=== PATIENT | female | born 2005 | race Caucasian/White ===

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

== ENCOUNTER 2023-05-02 06:27 | Emergency (ER) | payer MEDICAID, SELFPAY ==
[2023-05-02 06:32] VITALS: BP 126/67; PULSE 99; RESP 16; TEMP 36.4; O2SAT 98
--- NOTE | 2023-05-02 06:34 | W.ED.GENAD ---
Discharge Plan Disposition Patient Disposition: Home Condition: Good Discharge Details Chief Complaint: Sorethroat Clinical Impression: Acute herpangina Primary Care Provider: Unknown,Unknown ED Provider: Adriano Holcomb Home Meds and New Rx's Prescriptions: No Action Nexplanon 68 mg implant 1 implant SBD ONCE albuterol sulfate [ProAir HFA] 90 mcg/actuation HFA aerosol inhaler 2 puff Inhalation Q4H PRN Qty: 1 12RF Patient Comments: Pt unsure when she last used this albuterol sulfate 2.5 MG/3 ML solution for nebulization 2.5 mg Inhalation Q4H PRN Qty: 1 Patient Comments: Pt unsure when she last took this med Rx Instructions: USE PRN COUGH OR WHEEZE escitalopram oxalate 5 mg tablet 5 mg PO DAILY MDD 15mg Qty: 30 3RF Rx Instructions: Take with 10mg for 15mg total escitalopram oxalate 10 mg tablet 10 mg PO DAILY MDD 15mg Qty: 30 2RF Discharge Instructions Instructions: Hand, Foot, and Mouth Disease (ED) Additional Instructions: At this time your symptoms are consistent with herpangina. This is similar to luqy-eewb-yir-mouth virus infection. Please take 800 mg of Motrin every 6 hours and 1000 mg of Tylenol every 6 hours. These are the maximum doses. Please use the HurriCaine spray only as absolutely needed for pain control. Drink plenty fluids and stay well-hydrated. If you notice any worsening of your symptoms, or any new symptoms such as vomiting, diarrhea, fever, chills, shortness of breath, chest pain, numbness, weakness, or fainting , please return immediately to the emergency department for reevaluation. Please follow up with your primary care provider as soon as possible for reassessment and reevaluation. As always, it was a pleasure participating in your medical care today. HPI General Date/Time Provider Initiated Documentation: 05/02/23 06:28. HPI Narrative: 17-year-old female with a past medical history of tonsillectomy, appendectomy, sleep apnea, asthma, presents today for evaluation of sore throat. Symptoms have been present for the last 7 to 10 days. She admits to mild cough as well. She has been taking DayQuil and NyQuil without any significant improvement. Over the last 24 to 48 hours she has noticed some white spots on the posterior aspect of her throat. She denies any ear pain. She denies any vomiting or diarrhea. No other complaints at this time. No other modifying factors. Related Data Home Medications Medication Instructions Recorded Confirmed albuterol sulfate 2.5 mg/3 mL 2.5 mg inhalation Q4H PRN ##1 05/12/16 05/02/23 (0.083 %) solution for nebulization etonogestrel 68 mg subdermal 1 implant subdermal ONCE 03/14/18 05/02/23 implant (Nexplanon) albuterol sulfate 90 mcg/actuation 2 puff inhalation Q4H PRN ##1 05/08/18 05/02/23 aerosol inhaler (ProAir HFA) escitalopram oxalate 10 mg tablet 10 mg PO DAILY #30 tabs 03/17/23 05/02/23 escitalopram oxalate 5 mg tablet 5 mg PO DAILY #30 tabs 03/17/23 05/02/23 Previous Rx's Medication Instructions Recorded albuterol sulfate 90 mcg/actuation 2 puff inhalation Q4H PRN ##1 05/08/18 aerosol inhaler (ProAir HFA) escitalopram oxalate 10 mg tablet 10 mg PO DAILY #30 tabs 03/17/23 escitalopram oxalate 5 mg tablet 5 mg PO DAILY #30 tabs 03/17/23 Allergies Allergy/AdvReac Type Severity Reaction Status Date / Time Penicillins Allergy Mild RASH Verified 05/02/23 06:36 ethinyl estradiol AdvReac Nausea, Verified 05/02/23 06:36 [From Xulane] Headache, abdominal pain norelgestromin [From Xulane] AdvReac Nausea, Verified 05/02/23 06:36 Headache, abdominal pain General KAM: 3 Review of Systems All systems reviewed & are unremarkable except as noted in HPI and below Exam Narrative Exam Narrative: 1.Const: Well-nourished, Well-developed, appearing stated age 2.Eyes: PERRL, no conjunctival injection, and symmetrical lids. 3.ENT: Atraumatic external nose and ears. Moist MM. Neck: Symmetric, trachea midline, No thyromegaly. Tonsils are surgically absent. There is erythema on the uvula, with a few white exudates also noted. No large ulcers. No ulcers of the hard palate. No lesions on the hard palate. No lesions throughout the rest of the mouth. 4.CVS: +S1/S2, No murmurs or gallops. Peripheral pulses 2+ and equal in all extremities. Brisk capillary refill in all extremities. 5.RESP: Unlabored respiratory effort. Clear to auscultation bilaterally. No wheezes rales or rhonchi 6.GI: Soft, Nontender/Nondistended, No hepatosplenomegaly. No guarding or rebound. 7.MSK: Normocephalic/Atraumatic, Extremities w/o deformity or ttp No cyanosis or clubbing, Normal movement of all extremities 8.Skin: Warm, Dry. No rashes or lesions. 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 Sensation grossly intact, no focal neurologic deficits. 10.Psych: (AAO) x3. Appropriate mood and affect Medical Decision Making 17-year-old female with a past medical history of tonsillectomy, appendectomy, sleep apnea, asthma, presents today for evaluation of sore throat. Symptoms have been present for the last 7 to 10 days. She admits to mild cough as well. She has been taking DayQuil and NyQuil without any significant improvement. Over the last 24 to 48 hours she has noticed some white spots on the posterior aspect of her throat. She denies any ear pain. She denies any vomiting or diarrhea. No other complaints at this time. No other modifying factors. Physical exam demonstrates well-appearing female, surgically absent tonsils. Small white exudates noted on the uvula. Uvula is mildly inflamed and erythematous as well. But not overly enlarged. Differential includes a component of strep pharyngitis, herpangina, less likely ogyj-babz-mft-mouth. Symptoms appear less likely for herpes. Will test for strep, flu COVID and RSV, monitor closely and reassess. Strep test is negative. Symptoms appear most clinically consistent for herpangina. Will recommend NSAID therapy at home, will give HurriCaine spray for breakthrough use needed. Recommend continued hydration. Discussed red flags for which to return. Will give Toradol prior to discharge. I have extensively reviewed the treatment plan and discharge instructions with the patient. I have addressed all patient concerns at this time. The patient was made aware of what symptoms to monitor for that would warrant a return to the emergency department. Discussed the plan with the patient, they demonstrate verbal understanding and agreement with our assessment and plan at this time. The documentation in this chart was dictated using [employer] dictation software. Please excuse any dictation errors. 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 BMI (body mass index), pediatric, greater than 99% for age (Acute 05/26/17) Acanthosis nigricans (Acute 02/16/16) Medical History 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) Tonsillar hypertrophy (06/02/14) Lyme disease (09/28/12) Obesity Constipation RSV (acute bronchiolitis due to respiratory syncytial virus) Epigastric pain admit [facility] 06/30 Environmental allergies Dyspepsia Depression Myopia Surgical History Tonsillectomy and adenoidectomy (02/26/15) with left nose cauterized Appendectomy at age 15 months for ruptured appendix Family History Mother Anxiety and depression Father Chronic paranoid schizophrenia Maternal Cousin Chronic paranoid schizophrenia Hyperlipidemia Mat started at age 14 yrs Sibling Pediatric hearing loss Mental disorder Grandparent Substance abuse Heart disease Hyperlipidemia Mental disorder Neoplasm Sister Menorrhagia with menorragia started on hormone treatment after 1 year of periods Grandmother Menorrhagia Social History Smoking/Tobacco Use Status: Never Smoking risk assessment performed?: Yes Alcohol Intake: current Alcohol Intake frequency: holidays/special occasions only Drug use: Occasionally Substance use type: marijuana Communication Needs: Corrective Lenses current occupation: works at [employer] Pets and animals: Yes (2 dogs and a cat) Pets and animals: cat(s) and dog(s) Do you feel safe at home: Yes Do you feel safe in your relationship?: Yes Female Reproductive History Menstrual Age of Menarche: 11 Duration of menses: 3-5 days control method: implanted (Nexplanon inserted by [place] NP [id number] EXP=02/2020) History History 0 Para Hx # Term Pregnancies Multiple births Hx # Pregnancies Ectopic pregnancies AB induced Hx Number of Living Children AB spontaneous
[2023-05-02] MEDS: Ketorolac 30 MG/ML VIAL IM (07:21)
[2023-05-02] MEDS: Benzocaine 20% 60 ML CAN TP (07:22)
[2023-05-02 07:26] LABS: COVID-19 PCR Negative (Negative); Influenza A PCR Negative (Negative); Influenza B PCR Negative (Negative); RSV PCR Negative (Negative)
[2023-05-02 07:34] LABS: Source Nasopharynx
== END 2023-05-02 07:23 | disposition home or self-care (01) ==
PROVIDERS: Emergency Provider Student in an Organized Health Care Education/Training Program; PCP Family Medicine
DX: B08.5 Enteroviral vesicular pharyngitis (principal); Z11.52 Encounter for screening for COVID-19
CPT/HCPCS: 87637; 87880; 96372; 99283; 87081; J1885

== ENCOUNTER 2023-05-09 05:27 | Outpatient (CLI) | payer MEDICAID, SELFPAY ==
--- NOTE | 2023-05-09 15:11 | W.NUTRFU ---
Date of service: 05/09/23 Time of Service: 14:00 Nutrition Note NOTE: Felipa is a 17yo patient of [facility] referred for dietary guidance for wt mgt. She is also being referred to sleep medicine as reassess her CPAP situation as MONSE probably contributing to her weight struggles. Om 04/24/24 pt was weighed at 142.88kg, which results in a BMI of 60 at 60.75. Medications include escitalopram which can have side effectes of increased appetite and wt gain. Est. Energy Needs: 2777kcals (REEx1.3AF) - Suggested to Felipa that 2200 coiuld be considered goal for wt mgt. Protein: 110grams (20%of recommended kcals). Pt has no known food allergies and doesnf't consider herself to be too picky. Current takes no nutrition supplements. 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 In her usual day she skips breakfast or might have some gum or food from the register area. Lunch might be canned chili or prepared sandwich or meal from frozen isle. Dinner is at home with her family. States she snacks less at work, more at home. Drinks lots of water at home, at work might have some soda or monster drink. We looked at low hanging fruit to tackle some habits that might lead to the most immediate and significant change for her. We reviewed added sugar and how to track and goal of <40grams per day. We discussed regular meals to help achieve nutrition goals for protein and fiber. We discuseed taking standard mult vitamin that contains iron and iodine, alng with 2,000IU vitamin D. Discussed the benefit of regular exercise and baseline of activity. Encouraged continued efforts to work with providers to address MONSE factor. We reviewed setting up some simple and consistent menus to cycle between often so she doesn't have to stress about menu planning. Pt took my card with contact info if she has any immediate questions or need for resources. We made a plan for a follow up phone call at the end of May to see how she is doing with consistent menu planning and keeping added sugars below our set limit. Time Spent in Nutritional Counseling and Treatment: 45 minutes
== END 2023-05-09 05:28 | disposition home or self-care (01) ==
LOC: DS 05:27
PROVIDERS: PCP Family Medicine; Visit Provider Dietitian, Registered
DX: E66.8 Other obesity (principal); Z68.44 Body mass index [BMI] 60.0-69.9, adult; Z71.3 Dietary counseling and surveillance
CPT/HCPCS: 00123; 97802

== ENCOUNTER 2024-03-18 10:46 | Emergency (ER) | payer MEDICAID, SELFPAY ==
[2024-03-18 10:59] VITALS: BP 137/91; PULSE 122; RESP 14; TEMP 37.9; O2SAT 94
[2024-03-18 11:05] VITALS: BP 137/91; PULSE 122; RESP 14; TEMP 37.9; O2SAT 94
--- NOTE | 2024-03-18 11:16 | W.ED.GENAD ---
Discharge Plan Disposition Patient Disposition: Home Discharge Details Clinical Impression: Acute left otitis media, Viral upper respiratory tract infection with cough Primary Care Provider: Alexander Velazquez ED Provider: Gurpreet Bernabe Home Meds and New Rx's Prescriptions: New azithromycin [Zithromax Z-Jack] 250 mg tablet See Rx Instructions .ROUTE .COMPLEX Qty: 6 0RF Rx Instructions: For 250 mg dose pack: take 500 mg today (day 1), then 250 mg for 4 days (days 2-5) cetirizine 10 mg tablet 10 mg PO DAILY PRNQty: 7 0RF benzonatate 100 mg capsule 100 mg PO BID PRNQty: 7 0RF naproxen 500 mg tablet 500 mg PO BID PRNQty: 7 0RF budesonide-formoterol 80-4.5 mcg/actuation HFA aerosol inhaler 2 puff inhalation Q12H Qty: 10.2 0RF Rx Instructions: 1-2 puffs once to twice daily for maintenance. Continued Nexplanon 68 mg implant 1 implant SBD ONCE albuterol sulfate [ProAir HFA] 90 mcg/actuation HFA aerosol inhaler 2 puff Inhalation Q4H PRN Qty: 1 12RF Patient Comments: Pt unsure when she last used this albuterol sulfate 2.5 MG/3 ML solution for nebulization 2.5 mg Inhalation Q4H PRN Qty: 1 Patient Comments: Pt unsure when she last took this med Rx Instructions: USE PRN COUGH OR WHEEZE escitalopram oxalate 5 mg tablet 5 mg PO DAILY MDD 15mg Qty: 30 3RF Rx Instructions: Take with 10mg for 15mg total escitalopram oxalate 10 mg tablet 10 mg PO DAILY MDD 15mg Qty: 30 2RF Discharge Instructions Instructions: Ear Infections in Adults (DC) Additional Instructions: You are seen in the emergency department for your cough and fever. You will receive a call if your COVID swab is positive. Please return to the emergency department as we discussed if you cannot eat or drink or have difficulty breathing. Otherwise follow-up as needed with your primary care provider. Antibiotics and some supportive medications for your cough have been sent to your pharmacy. Please take as directed. For your pain please take medications as follows: 1. Take acetaminophen (Tylenol), 1,000 mg (two 500 mg tabs) every 6 hours [2. Take ibuprofen (Advil), 400 mg every 6 hours.] Stand Alone Forms: Work Release Discharge Data Discharge Date/Time-TO BE ENTERED AT DEPARTURE: 03/18/24 11:54 HPI General Date/Time Provider Initiated Documentation: 03/18/24 10:54. HPI Narrative: MDM This is an overall well-appearing normothermic but tachycardic 18-year-old female with cough sore throat most consistent with viral URI for which she will receive empiric trial of discharge with expectant management with azithromycin given left acute otitis media and penicillin allergy. No pain out of proportion to suggest necrotizing soft tissue infection. No significant posterior oropharynx erythema to suggest strep pharyngitis I did not swab for strep. Patient does have a headache but she has not been vomiting making my suspicion low for subdural empyema. Good range of motion in neck so doubt retropharyngeal abscess. Uvula midline so doubt peritonsillar abscess. Handling secretions making my suspicion low for epiglottitis. Nontoxic and vaccinated not consistent with bacterial tracheitis. No abnormal lung sounds to suggest pneumonia. As result we will defer chest x-ray. Patient appears hydrated send indication for IV fluids. We discussed that she should return to the emergency department if she develops worsening symptoms could not eat or drink as result of nausea or vomiting or could not take her antibiotic. She had no mastoid tenderness to suggest mastoiditis. No nuchal rigidity to suggest meningitis. Patient was persistently tachycardic but had a borderline fever. Given volumes in the emergency department patient was discharged tachycardic following acetaminophen and ibuprofen which were given. Supportive viral URI medications were sent to the patient's pharmacy. 4. Negative viral PCR HPI This is a 18-year-old female with a history of reactive airway disease arrived to the emergency department via private vehicle in the setting of headache cough sore throat. She has also had left ear pain. She says her cough is productive of clear phlegm. She was febrile at home up to 101.4 ?F as taken tympanically. She received her immunizations growing up. She takes anxiolysis medications. She has not been vomiting nor nauseous. She denies chest pain shortness of breath. She reports that her symptoms began 2 days ago. No abdominal pain. Exam General: Well-appearing in no acute distress speaking in complete sentences. Head: Normocephalic, atraumatic. Eye: Extraocular eye movements intact. No conjunctival injection. No scleral icterus. Ear, nose, mouth, throat: Right TM clear. Left TM erythematous bulging. No mastoid tenderness. No left ear proptosis. Normal voice, handling secretions normally. No significant posterior oropharynx erythema. Uvula midline. Neck: Trachea midline. Good range of motion in neck. Cardiovascular: Well-perfused distal extremities. Rapid regular rate. Respiratory: Nonlabored respiration. Clear lungs bilaterally. Gastrointestinal: Nondistended abdomen. Musculoskeletal: No edema. Moving all 4 extremities spontaneously. Skin: Normal for age and race, grossly normal temperature and turgor. No acute rash. Neurologic: Alert and appropriate, no apparent acute deficits. Psychiatric: Mood and manner are appropriate. Grooming and personal hygiene are appropriate. Related Data Home Medications ?Medication ?Instructions ?Recorded ?Confirmed albuterol sulfate 2.5 mg/3 mL 2.5 mg inhalation Q4H PRN ##1 05/12/16 03/18/24 (0.083 %) solution for nebulization etonogestrel 68 mg subdermal 1 implant subdermal ONCE 03/14/18 03/18/24 implant (Nexplanon) albuterol sulfate 90 mcg/actuation 2 puff inhalation Q4H PRN ##1 05/08/18 03/18/24 aerosol inhaler (ProAir HFA) escitalopram oxalate 10 mg tablet 10 mg PO DAILY #30 tabs 03/17/23 03/18/24 escitalopram oxalate 5 mg tablet 5 mg PO DAILY #30 tabs 03/17/23 03/18/24 azithromycin 250 mg tablet See Rx Instructions PO .COMPLEX #6 03/18/24 (Zithromax Z-Jack) tabs benzonatate 100 mg capsule 100 mg PO BID PRN #7 caps 03/18/24 budesonide-formoterol HFA 80 2 puff inhalation Q12H #10.2 grams 03/18/24 mcg-4.5 mcg/actuation aerosol inhaler cetirizine 10 mg tablet 10 mg PO DAILY PRN #7 tabs 03/18/24 naproxen 500 mg tablet 500 mg PO BID PRN #7 tabs 03/18/24 Previous Rx's ?Medication ?Instructions ?Recorded albuterol sulfate 90 mcg/actuation 2 puff inhalation Q4H PRN ##1 05/08/18 aerosol inhaler (ProAir HFA) escitalopram oxalate 10 mg tablet 10 mg PO DAILY #30 tabs 03/17/23 escitalopram oxalate 5 mg tablet 5 mg PO DAILY #30 tabs 03/17/23 azithromycin 250 mg tablet See Rx Instructions PO .COMPLEX #6 03/18/24 (Zithromax Z-Jack) tabs benzonatate 100 mg capsule 100 mg PO BID PRN #7 caps 03/18/24 budesonide-formoterol HFA 80 2 puff inhalation Q12H #10.2 grams 03/18/24 mcg-4.5 mcg/actuation aerosol inhaler cetirizine 10 mg tablet 10 mg PO DAILY PRN #7 tabs 03/18/24 naproxen 500 mg tablet 500 mg PO BID PRN #7 tabs 03/18/24 Allergies Allergy/AdvReac Type Severity Reaction Status Date / Time Penicillins Allergy Mild RASH Verified 03/18/24 11:04 ethinyl estradiol (From AdvReac Nausea, Verified 03/18/24 11:04 Xulane) Headache, abdominal pain norelgestromin (From Xulane) AdvReac Nausea, Verified 03/18/24 11:04 Headache, abdominal pain General Stated Complaint: RespSymp KAM: 4 Course Vital Signs Vital signs: Vital Signs Temperature 37.9 C H 03/18/24 10:59 Pulse 122 H 03/18/24 10:59 Respiratory Rate 14 03/18/24 10:59 Blood Pressure 137/91 H 03/18/24 10:59 Pulse Oximetry 94 03/18/24 10:59 Temperature 37.9 C H 03/18/24 11:05 Temperature Source Oral 03/18/24 11:05 Pulse 122 H 03/18/24 11:05 Respiratory Rate 14 03/18/24 11:05 Blood Pressure 137/91 H 03/18/24 11:05 Blood Pressure Position Sitting 03/18/24 11:05 Pulse Oximetry 94 03/18/24 11:05 Oxygen Delivery Method Room Air 03/18/24 11:05 Oxygen Flow Rate 0 03/18/24 11:05 Pain Level 7 03/18/24 11:05 Medical Decision Making Quality:SDOH Health Related Social Needs: No Data to Display PFSH All Active Problems (Updated 03/18/24 @ 11:27 by Gurpreet Bernabe MD) Viral upper respiratory tract infection with cough (Acute) Acute left otitis media (Acute) Marijuana use (Acute) Elevated LDL cholesterol level (Acute) Obesity (Chronic) Pre-hypertension (Acute) Mild persistent asthma (Chronic) Menorrhagia with irregular cycle (Acute) nexplanon since 2018; did not want OCPs (hard time remembering pills), in past has decline work-up for PCOS Sleep apnea (Acute 05/28/12) Environmental allergies (Acute 06/02/14) 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 BMI (body mass index), pediatric, greater than 99% for age (Acute 05/26/17) Acanthosis nigricans (Acute 02/16/16) Medical History (Updated 03/18/24 @ 11:27 by Gurpreet Bernabe MD) Presence of subdermal contraceptive implant (02/27/24) 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) Tonsillar hypertrophy (06/02/14) Lyme disease (09/28/12) Obesity Constipation RSV (acute bronchiolitis due to respiratory syncytial virus) Epigastric pain admit [facility] 06/30 Environmental allergies Dyspepsia Depression Myopia Surgical History Tonsillectomy and adenoidectomy (02/26/15) with left nose cauterized Appendectomy at age 15 months for ruptured appendix Family History Mother Anxiety and depression Father Chronic paranoid schizophrenia Maternal Cousin Chronic paranoid schizophrenia Hyperlipidemia Mat started at age 14 yrs Sibling Pediatric hearing loss Mental disorder Grandparent Substance abuse Heart disease Hyperlipidemia Mental disorder Neoplasm Sister Menorrhagia with menorragia started on hormone treatment after 1 year of periods Grandmother Menorrhagia Social History Smoking/Tobacco Use Status: Never Smoking risk assessment performed?: Yes Alcohol Intake: current Alcohol Intake frequency: holidays/special occasions only Drug use: Daily Substance use type: marijuana Details: Pt states she smokes marijuana daily 03/18/24 Communication Needs: Corrective Lenses current occupation: works at [employer] Pets and animals: Yes (2 dogs and a cat) Pets and animals: cat(s) and dog(s) Do you feel safe at home: Yes Do you feel safe in your relationship?: Yes Female Reproductive History Menstrual Age of Menarche: 11 Duration of menses: 3-5 days control method: implanted History History 0 Para Hx # Term Pregnancies Multiple births Hx # Pregnancies Ectopic pregnancies AB induced Hx Number of Living Children AB spontaneous
--- OUTSIDE RECORDS SUMMARY | 2024-03-18 11:29 | XMS_ITS | Encounter Summary ---
Author Organization [facility]ly [facility] [place] [address] Care Team Providers Care Production Truck Driver Name Role Phone María Irizarry MD Primary Care Provider [phone] Encounter Details Date Type Department Care Team (Late st Contact Info) Description 12/17/2021 Telephone [facility]illofacial Surgery at [facility], [place] [id number] Sherri Salas Social History Tobacco Use Types Packs/Day Years Used Date Smoking Tobacco: Passive Smo ke Exposure - Never Smoker Smokeless Tobacco: Never Comments:mother smokes outsi de Sex and Gender Information Value Date Recorded Sex Assigned at Not on file Gender Identity Not on file Sexual Orientation Not on file documented as of this encounter Miscellaneous Notes * Telephone Encounter - Sherri Salas - 12/17/2021 2:42 PM EDT Cherri, Patient is scheduled to have surgery on 01/19/2022 and the packet has been mailed to the verified address on file. Follow up appointment is as follows: No follow up indicated in case Thank you!! documented in this encounter Plan of Treatment Not on file documented as of this encounter Visit Diagnoses Not on filedocumented in this encounter Care Teams Production Truck Driver Relationship Specialty Start Date End Date María [place] [address] PCP - General Pediatrics 12/17/21 documented as of this encounter
--- OUTSIDE RECORDS SUMMARY | 2024-03-18 11:29 | XMS_ITS | Encounter Summary ---
Author Organization [facility] Serafin jessie [place] [id number] Care Team Providers Care Mysql Database Developer Name Role Phone María Irizarry MD Primary Care Provider [phone]- [phone] Reason for Visit * Auth/Cert Specialty Diagnoses / Procedures Referred By Noreen farooq Referred To Contact Diagnoses Impacted teeth Procedures PRO IMPACT TOOTH REMOV COMP BONY PRO ANESTH, PROCEDURE ON MOUTH SURGICAL EXTRACTIONS, REMOVAL OF IMPACTED TOOTH, COMPLETELY BONY (WRVU 1.93) Fiugeroa Jones MD [facility] [address] [facility] Referral ID Status Reason Start Date Expiration Date Visits Re quested Visits Authorized [id number] 1 1 Encounter Details Date Type Department Care Team (Latest Contact Info) Description 01/19/2022 9:09 AM EST - 01/19/2022 1:04 PM [facility] Hospital [place] [address] Figueroa Jones MD [facility] [address] Dental impaction Discharge Disposition: Home Social History Tobacco Use Types Packs/Day Years Used Date Smoking Tobacco: Never Passive Smoke Exposure: Yes Smokeless Tobacco: Never Tobacco Cessation:Counseling Given: Not Answered Comments:mother smokes outside Alcohol Use Standard Drinks/Week Comments Not Currently 0 (1 standard drink = 0.6 oz pur e alcohol) Sex and Gender Information Value Date Recorded Sex Assigned at Not on file Gender Identity Not on file Sexual Orientation Not on file documented as of this encounter Last Filed Vital Signs Vital Sign Reading Time Taken Comments Blood Pressure 142/93 01/19/2022 12:45 PM EST Pulse 74 01/19/2022 11:42 AM EST Temperature 36.7 ??C (98.1 ??F) 01/19/2022 1:02 PM ES T Respiratory Rate 16 01/19/2022 11:4 2 AM EST Oxygen Saturation 97% 01/19/2022 12: 45 PM EST Inhaled Oxygen Concentration - - Weight 125.9 kg (277 lb 8 oz) 01/19/2022 9:38 AM EST Height 154.9 cm (5' 1) 01/19/2022 9:38 AM EST Body Mass Index 52.43 01/19/2022 9:38 AM EST Body Mass Index Percentile 99.99% 01/19/2022 9:3 8 AM EST Growth Chart: [facility] (Girls, 2- 20 Years) documented in this encounter Discharge Instructions * Patient Instructions* Figueroa Jones MD - 01/19/2022 10:46 AM EST On the Day of Surgery: DO NOT rinse your mouth, smoke, or use a straw when drinking. Any of these could cause you to bleed more. You should remain at home, rest, and avoid alcoholic beverages. Discomfort: Strategy for pain: Take prescribed motrin/advil/ibuprofen (these are called NSAID) every 6 hours for pain over the next 2 days on a regular time frame. In between the 6 hour time frame you can supplement it with Tylenol 650mg and/or one vicodin/percocet/oxycodone (which ever one was prescribed) to bridge your pain till the next NSAID dose. Time the pain medicine so you take it before you go to bed. Be mindful of not taking more then 1000mg within a 6 hour time frame (not to exceed 4000mg in a 24 hour period). It is not uncommon for you to have some discomfort following a surgical procedure. This discomfort may last for three days or more. Pain relievers such as ibuprofen or Tylenol (acetaminophen) may be taken - please follow the directions on the bottle. Other discomforts you may experience include: slight earache, sore throat, numbness or tingling in the lips or chin, aches in other teeth, and tightness of the jaw muscles. Bleeding: It is normal for the surgery site to bleed post-operatively. If bleeding continues, placegauze directly over the surgery site and bite down gently, but firmly, for 20 minutes. Repeat this process as needed. If bleeding is heavy, keep head elevated or sit upright, avoid exercise, hot liquids, smoking, and drinking from straws. If the bleeding does not stop with pressure, try a lukewarm,damp tea bag in place of the gauze for another 20 minutes. The tea bag will help to form blood clots and stop the bleeding. If bleeding continues, call your doctor. Swelling: To reduce immediate swelling after your procedure, apply an ice pack, with pressure, to the face over the area of the procedure. Ice should be applied for 15-20 minutes at a time, for the first 24 hours. After 24 hours, a moist warm compress may be helpful. Most swelling will occur qiarer18-10 hours following the procedure. Mouth Rinse: Vigorous mouth washing may cause bleeding to begin again if clots are not formed. DO NOT RINSE on the day of surgery. Begin rinsing one day after the procedure with peridex (if prescribed) very gently and in between peridex rinses you can also rinse with warm salt water (1/2 teaspoon per 8 oz. warm water). Continue rinsing 3-6 times a day for several days. This will keep surgical sites clean and will help with healing. Diet: It is best to eat light, soft foods, and drink plenty of liquids following a surgical procedure. Foods like, yogurt, pasta, eggs, soups, and ice cream are good choices. Avoid hot liquids for 24hours after surgery Avoid foods that are difficult to chew. Once chewing becomes easier, you may return to your normal diet. In General: If stitches are used, they will dissolve or unravel in about three days to one week. Avoid strenuous exercise, such as jogging and contact sports for at least one week following surgery. Swelling is usually most extensive 24- 48 hours following surgery, and usually takes 4-5 days to subside. Sockets can take 4-6 weeks to heal, and often heal from the inside out. It may take 10-14 days before you feel like your normal self again. Infection: Can occur at any time, but it is evident more often 4-7 days after a procedure. Please contact us at the numbers below if you have one or more of the following: Temperature elevation greater than 100.5 Worsening swelling after the initial 48 hour period Severe and worsening pain Pus or other foul drainage from the surgery site Foul smell or taste coming from the surgery site Generalized body chills or fever During business hours 8am-5pm M-F please call our office at [phone] otherwise call the main number [phone] and ask to connect with Dr. Jones and if no response within 30 minutes please call and ask to speak with the ENT resident energy economist. documented in this encounter Medications at Time of Discharge Medication Sig Dispensed Refills Start Date End Date HYDROcodone-acetaminop hen ([place]) 5-325 mg Tablet Take 1-2 tablets by mouth every 6 hours as needed. 15 tablet 01/19/2022 ibuprofen (Advil) 600 mg Tablet Take 1 tablet by mouth every 6 hours as needed for Pain. 20 tablet 01/19/2022 escitalopram (Lexapro) 10 mg Tablet Take 10 mg by mouth daily. 07/21/2021 etonogestreL (Nexplanon) 68 mg Implant by Subdermal route Continuous (Device). FLUoxetine (PROZAC) 20 mg Tablet Daily 10/13/2015 Selenium Sulfide 2.25 % Shampoo twice a week 10/13/2015 polyethylene glycol (MIRALAX) 17 gram Powder in Packet Take 17 g by mouth daily. senna (EX-LAX) 15 mg Tablet, Chewable Take 1 tablet by mouth daily (after breakfast). 30 tablet 3 01/14/2016 montelukast (SINGULAIR) 5 mg chewable tablet Take 5 mg by mouth nightly. chlorhexidine (Peridex) 0.12 % Mouthwash Take 15 mLs by mouth 2 times daily for 7 days. 210 mL 01/19/2022 01/26/2022 documented as of this encounter H&P Notes * Figueroa Jones MD - 01/19/2022 10:01 AM EST The patient's history and physical exam have been reviewed and completed. There has been no interval change. CV: regular rate and rhythm without peripheral edema Lungs:non labored breathing Oral exam: No proper room for eruption and minimal attached tissue distal second molars. No change in exam Plan is to extract 1, 16, 17 Dparq/consent obtained. Risks reviewed including damage to adjacent structures such as teeth, bone,sinus, jaw problems, nerve, possibility of infection, bleeding, pain, swelling, and need for further surgery. Figueroa Jones MD, DMD documented in this encounter Miscellaneous Notes * Op Note - Figueroa Jones MD - 01/19/2022 10:58 AM EST [facility] Operative Note Patient Name: Felipa Flores : [id number] MR#: [id number] Case Date: 01/19/2022 Surgeon: Surgeon(s) and Role: * Figueroa Jones MD - Primary Preoperative diagnosis: Impacted teeth Postoperative diagnosis: Impacted teeth Procedure(s) (LRB): SURGICAL EXTRACTIONS, REMOVAL OF IMPACTED TOOTH, COMPLETELY BONY (WRVU 1.93) (Bilateral) #1,16,17 Anesthesia: General Estimated Blood Loss: Specimens removed during surgery: * No orders in the log * Drains: * No LDAs found * Surgical Closure: Primary Closure - skin incision is completely closed without any wires, richard, drains or other devices Disposition: awakened from anesthesia, extubated and taken to the recovery room in a stable condition, having suffered no apparent untoward event. Condition: doing well without problems (Please see the Surgical Encounter Summary for any Implant and Specimen details pertinent to this patient.) HPI/Surgical Indications: See previous preop History and Physical for full details. Procedure Description: Felipa Floreswas prepped and draped in the standard fashion for behavioral modification assistant. The oral cavity was suctioned and an oral/throat shield was placed. 15 cc of 1% Xylocaine with 1-200,000 epinephrine was used to infiltrate the surgical sites. #15 blade was used to make an incision in the soft tissue overlying the maxillary right third molar- tooth #1. Complete bony impaction. Mucoperiosteum was then reflected and elevated superiorly. Bone overlying the occlusal surface of the tooth and on the lateral aspect of the alveolus was removed.The tooth was then extracted and the extraction site was curetted and irrigated. No evidence of sinus communication was encountered. A similar approach was utilized with the maxillary left third molar - tooth #16. Complete bony impaction. Mucoperiosteum was then reflected and elevated superiorly. Bone overlying the occlusal surface of the tooth and on the lateral aspect of the alveolus was removed. The tooth was then extracted and the extraction site was curetted and irrigated. No evidence of sinus communication was encountered. Attention was then turned to the mandible where 15 blade was used to incise the soft tissue overlying the lower right third molar in a lingual nerve sparing fashion - tooth #17. Complete bony impaction. Mucoperiosteum was then reflected and elevated superiorly. Bone overlying the occlusal surface of the tooth and on the lateral aspect of the alveolus was removed. The tooth was then extracted after reflecting the lingual tissue and sectioning the tooth in multiple pieces to facilitate removal and then the extraction site was curetted and irrigated. No evidence of nerve communication was encountered. 3-0 chromic sutures were utilized for #17 and 3-0 chromic sutures were utilized for #1/16 No evidence of injury to the sinuses or inferior alveolar nerve noted. The oral cavity was then carefully suctioned and the oral/throat shield was removed and hemostasis was obtained. The patient wasawakened, extubated and brought to the recovery room in satisfactory condition having tolerated theprocedure well with a minimum of blood loss. All needle counts and sponge counts were correct. Disposition: Patient will go home pending meeting discharge criteria. Surgical Infection Prevention Bundle Used? N/A Attestation: Case Date: 01/19/2022 I performed this procedure without the involvement of a resident. Figueroa Jones MD 01/19/2022 documented in this encounter Plan of Treatment Not on file documented as of this encounter Procedures Procedure Name Priority Date/Time Associated Diagnosis Comments SURGICAL EXTRACTIONS, REMOVAL OF IMPACTED TOOTH, COMPLETELY BONY (WRVU 1.93) 01/19/2022 10:37 AM EST Dental impaction SURGICAL EXTRACTIONS,REMOVAL OF IMPACTED TOOTH,COMPLETELY BONY Routine 01/19/2022 9:26 AM EST Dental impaction documented in this encounter Visit Diagnoses Diagnosis Dental impaction Disturbances in tooth eruption documented in this encounter Administered Medications Inactive Administered Medications - up to 3 most recent administrations Medication Order MAR Action Action Date Dose Rate Site acetaminophen (Tylenol) tablet 1,000 mg 1,000 mg, Oral, ONCE, 1 dose, On Mon01/19/22 at 1000, Maximum dose of acetaminophen is 4000 mg from all sources in 24 hours. When ordered for pain, acetaminophen should be given even when other ordered pain medications are indicated. , Day of Surgery (Day of Procedure), Routine Given 01/19/2022 9:48 AM EST 1,000 mg fentaNYL (PF) (50 mcg/mL) injection 25 mcg 25 mcg, Intravenous, EVERY 15 MIN PRN, Starting on Mon01/19/22 at 1108, Until Mon01/19/22 at 1505, Pain, pain 5-10 scale, If medication ordered subcutaneously, do not administer more than 2 mL as a single injection., Routine Given 01/19/2022 12:12 PM EST 12.5 mcg lactated ringers infusion 1,000 mL, at 100 mL/hr, Intravenous, CONTINUOUS, Starting on Mon01/19/22 at 1000, Until Mon01/19/22 at 1256, Day of Surgery (Day of Procedure) New Bag 01/19/2022 9:48 AM EST 1,000 mLs 100 mL/hr oxyCODONE (Roxicodone) tablet 5 mg 5 mg, Oral, EVERY 4 HOURS PRN, Starting on Mon01/19/22 at 1229, Until Mon01/19/22 at 1505, Pain, Routine Given 01/19/2022 12:43 PM EST 5 mg documented in this encounter Active and Recently Administered Medications Times are shown in EST. Scheduled Medication Order 01/17/2022 01/18/2022 01/19/2022 acetaminophen (Tylenol) tablet 1,000 mg (COMPLETED) 1,000 mg, Oral, ONCE, 1 dose, On Mon01/19/22 at 1000, Maximum dose of acetaminophen is 4000 mg from all sources in 24 hours. When ordered for pain, acetaminophen should be given even when other ordered pain medications are indicated. , Day of Surgery (Day of Procedure), Routine 0948 (Given - Provid er: Caterina Mitchell RN) clindamycin (Cleocin) 600 mg in dextrose 5% 50 mL infusion 600 mg, Intravenous, FISH EGG PACKER TO O.R., 1 dose, On Mon01/19/22 at 1030, Indication for (Active or Suspected): Prophylaxis 1030 (Due) Continuous Medication Order 01/17/2022 01/18/2022 01/19/2022 lactated ringers infusion (CANCELED) 1,000 mL, at 100 mL/hr, Intravenous, CONTINUOUS, Starting on Mon01/19/22 at 1000, Until Mon01/19/22 at 1256, Day of Surgery (Day of Procedure) 0948 ([facility] - Prov ider: Caterina iMtchell RN) PRN Medication Order 01/17/2022 01/18/2022 01/19/2022 fentaNYL (PF) (50 mcg/mL) injection 25 mcg 25 mcg, Intravenous, EVERY 15 MIN PRN, Starting on Mon01/19/22 at 1108, Until Mon01/19/22 at 1505, Pain, pain 5-10 scale, If medication ordered subcutaneously, do not administer more than 2 mL as a single injection., Routine 1212 (Given - Provid er: Gillian Hernandez RN) lidocaine-EPINEPHrine (pf) (2% - 1:200,000) injection (CANCELED) ONCE PRN, Starting on Mon01/19/22 at 1129, Until Mon01/19/22 at 1505, Intra-Operative (Intra-Procedure), Routine 1129 (Given - Provid er: Figueroa Jones MD) oxyCODONE (Roxicodone) tablet 5 mg 5 mg, Oral, EVERY 4 HOURS PRN, Starting on Mon01/19/22 at 1229, Until Mon01/19/22 at 1505, Pain, Routine 1243 (Given - Provid er: Gillian Hernandez RN) documented in this encounter Care Teams Mysql Database Developer Relationship Specialty Start Date End Date María Irizarry MD [address] [place] [address] PCP - General Pediatrics 12/17/21 documented as of this encounter
--- OUTSIDE RECORDS SUMMARY | 2024-03-18 11:29 | XMS_ITS | Encounter Summary ---
Author Organization [facility] [place] [address] Care Team Providers Care Patent Prosecution Paralegal Name Role Phone María Irizarry MD Primary Care Provider +1- [phone] Reason for Visit * Auth/Cert Specialty Diagnoses / Procedures Referred By Noreen farooq Referred To Contact Diagnoses Impacted teeth Procedures PRO IMPACT TOOTH REMOV COMP BONY PRO ANESTH, PROCEDURE ON MOUTH SURGICAL EXTRACTIONS, REMOVAL OF IMPACTED TOOTH, COMPLETELY BONY (WRVU 1.93) Figueroa Jones MD [facility] [place] [address] [facility] Referral ID Status Reason Start Date Expiration Date Visits Re quested Visits Authorized [id number] 1 1 Encounter Details Date Type Department Care Team (Late st Contact Info) Description 01/19/2022 10:45 AM EST - 01/19/2022 12:15 PM EST Surgery [place] [address] Figueroa Jones MD [facility] [place] [address] SURGICAL EXTRACTIONS, REMOVAL OF IMPACTED TOOTH, COMPLETELY BONY (WRVU 1.93) Social History Tobacco Use Types Packs/Day Years [...] Sign Reading Time Taken Comments Blood Pressure 136/99 01/19/2022 12:15 PM EST Pulse 74 01/19/2022 11:42 AM EST Temperature 36.7 ??C (98.1 ??F) 01/19/2022 1 1:42 AM EST Respiratory Rate 16 01/19/2022 11:4 2 AM EST Oxygen Saturation 97% 01/19/2022 12: 15 PM EST Inhaled Oxygen Concentration - - Weight 125.9 kg (277 lb 8 oz) 01/19/2022 9:38 AM EST Height 154.9 cm (5' 1) 01/19/2022 9:38 AM EST Body Mass Index 52.43 01/19/2022 9:38 AM EST Body Mass Index Percentile 99.99% 01/19/2022 9:3 8 AM EST Growth Chart: [facility] [place] (Girls, 2- 20 Years) documented in this [...] may be helpful. Most swelling will occur [id number] hours following the procedure. Mouth Rinse: Vigorous [...] 8am-5pm M-F please call our office at [phone] otherwise call the main number [phone] and ask to connect with Dr. Jones and if no response within 30 minutes please call and ask to speak with the ENT resident environmental compliance technician. documented in this encounter Medications at Time of Discharge Medication Sig Dispensed Refills Start Date End Date HYDROcodone-acetaminop hen ([place]) 5-325 mg Tablet Take 1-2 tablets by [...] Jones MD - 01/19/2022 10:58 AM EST [facility] [place] Patient Name: Felipa Flores : [id number] MR#: [id number] Case Date: 01/19/2022 Surgeon: Surgeon(s) and Role: [...] and draped in the standard fashion for post doctoral fellow. The oral cavity was suctioned and an [...] Diagnosis Dental impaction Disturbances in tooth eruption Dental impaction Disturbances in tooth eruption documented [...] 9:48 AM EST 1,000 mLs 100 mL/hr lidocaine-EPINEPHrine (pf) (2% - 1:200,000) injection ONCE PRN, Starting on Mon01/19/22 at 1129, Until Mon01/19/22 at 1505, Intra-Operative (Intra-Procedure), Routine Given 01/19/2022 11:29 AM EST 8.5 mLs 19- Surgical Site oxyCODONE (Roxicodone) tablet 5 mg 5 mg, [...] 5% 50 mL infusion 600 mg, Intravenous, IUSS ANALYST TO O.R., 1 dose, On Mon01/19/22 at 1030, Indication for (Active or Suspected): Prophylaxis 1030 (Due) Continuous Medication Order 01/17/2022 01/18/2022 01/19/2022 lactated ringers infusion (CANCELED) 1,000 mL, at 100 mL/hr, Intravenous, CONTINUOUS, Starting on Mon01/19/22 at 1000, Until Mon01/19/22 at 1256, Day of Surgery (Day of Procedure) 0948 (New Bag - Prov ider: Caterina Mitchell RN) PRN Medication Order 01/17/2022 01/18/2022 01/19/2022 [...] RN) documented in this encounter Care Teams Patent Prosecution Paralegal Relationship Specialty Start Date End Date María Irizarry [place] [facility] [address] PCP - General Pediatrics 12/17/21 documented as of this encounter
--- OUTSIDE RECORDS SUMMARY | 2024-03-18 11:29 | XMS_ITS | Encounter Summary ---
Author Organization [facility] [place] [address] Care Team Providers Care Plumber'S Assistant Name Role Phone María Irizarry MD Primary Care Provider [phone] Reason for Visit * Auth/Cert Specialty Diagnoses / Procedures Referred By Noreen farooq Referred To Contact Diagnoses Impacted teeth Procedures PRO IMPACT TOOTH REMOV COMP BONY PRO ANESTH, PROCEDURE ON MOUTH SURGICAL EXTRACTIONS, REMOVAL OF IMPACTED TOOTH, COMPLETELY BONY (WRVU 1.93) Figueroa Jones MD [facility] [place] [address] RUST Referral ID Status Reason Start Date Expiration Date Visits Re quested Visits Authorized [id number] 1 1 Encounter Details Date Type Department Care Team (Late st Contact Info) Description 01/19/2022 10:39 AM EST Anesthesia Event [place] [address] Malaika Cabral MD [facility] [place] [address] Anesthesia Record Procedure Summary Procedure Name Responsible Anesthesiologist Anesthesia Start Time Anesthesia Stop Time SURGICAL EXTRACTIONS, REMOVAL OF IMPACTED TOOTH, COMPLETELY BONY (WRVU 1.93) (Bilateral) Malaika Cabral MD 01/19/22 1039 01/19/22 1145 Events Date Time Event Comment 01/19/2022 1012 1039 AN Verify 1039 Start 1039 An Start Data 1044 An Induction 1053 An Intubation 1054 Anesthesia Ready 1058 Procedure Start 1128 Procedure Stop 1138 Extubation/LMA Out 1139 an stop data 1145 Recovery or ICU Handoff Ginger ent care was transferred to the destination unit staff after review of the patient's medical history, current anesthetic/surgical status and plan, according to the Provider Handoff Checklist. 1145 Stop Meds Name Total Midazolam 2 mg fentaNYL 100 mcg Propofol 300 mg Rocuronium 50 mg PHENYLephrine 640 mcg Ondansetron 4 mg Dexamethasone 8 mg Dexmedetomidine 20 mcg Clindamycin 600 mg ketorolac (Toradol) (30 mg/mL) injection 15 mg Sugammadex 200 mg Lactated Ringers 500 mL * Agents Name O2 Sevoflurane (et) * Blood No blood administrations on file. Lines, Drains, and Airways Type Details Placement Removal Incision 01/19/22; 1058; gum (teeth extractions) 01/19/22 1058 by Papo Azul, RN (RETIRED) Peripheral IV Line - Single Lumen 01/19/22; 0944; cephalic vein (lateral side of arm), right; [id number] catheter system; Anatomical Landmarks; 22 gauge; Jarad OLIVEIRA; distraction, intradermal injection, appears comfortable; 01/19/22; 1303 01/19/22 0944 by Caterina Mitchell RN 01/19/22 1303 by Donny Conde RN ETT Mask Ventilation: Ea sy (1); ETT Type: Nasal, NO, Cuffed; ETT Size: 7 mm; Mac Blade: 3; Notes: Asleep; Attempts: 1; Laryngoscopy Grade: 1; ETT Placement Verified By: Auscultation, Capnometry, Visual; Secured at Teeth: 26 cm; Inserted by: anais perry; Removal Date: 01/19/22; Removal Time: 1138 01/19/22 1058 by Vern Perry MD 01/19/22 1138 by Vern Perry MD documented in this encounter Social History Tobacco Use Types Packs/Day Years Used Date Smoking Tobacco: Never Passive Smoke Exposure: Yes Smokeless Tobacco: Never Comments:mother smokes outsi de Alcohol Use Standard Drinks/Week Comments Not Currently 0 (1 standard drink = 0.6 oz pur e alcohol) Sex and Gender Information Value Date Recorded Sex Assigned at Not on file Gender Identity Not on file Sexual Orientation Not on file documented as of this encounter OR Notes * Anesthesia Postprocedure Evaluation - Vern Perry MD - 01/19/2022 11:46 AM EST Department of Anesthesiology Post-procedure Note Patient: Felipa Flores Procedure Summary Date: 01/19/22 Room / Location: [facility] OR [facility] MAIN OR Anesthesia Start: 1039 Anesthesia Stop: 1145 Procedure: SURGICAL EXTRACTIONS, REMOVAL OF IMPACTED TOOTH, COMPLETELY BONY (WRVU 1.93) (Bilateral)Diagnosis: Dental impaction (Impacted teeth) Surgeons: Figueroa Jones MD Responsible Provider: Malaika Cabral MD Anesthesia Type: general ASA Status: 3 All Anesthesia Providers: Anesthesiologist: Malaika Cabral MD Toilet Products Molder: Vern Perry MD Vitals Value Taken Time BP 140/79 01/19/22 1142 Temp Pulse Resp SpO2 100 % 01/19/22 1145 Pain Level Vitals shown include unvalidated device data. Patient Location: PACU/[facility] Level of Consciousness: Conscious but Sleepy Pain Management: Satisfactory Analgesia PONV: None Cardiovascular Status: At Baseline and Hemodynamically Stable Respiratory Status: At Baseline and Supplemental O2 (NC or FM) Postoperative Fluid Status: Possible Anesthetic Complications: NONE apparent at time of evaluation Final Primary Anesthesia Type: General (The anesthetic type performed was the same as planned.) Comments: Uneventful anesthetic. Emergence without issue. arousable to voice, follows commands, RASS -2. Comfortable without nausea at time of arrival in recovery unit. Mother made aware of oral contraception ineffectiveness after sugammadex administration. Vern Perry MD * Anesthesia Preprocedure Evaluation - Vern Perry MD - 01/18/2022 3:56 PM EST Pre-Anesthesia Evaluation for: Felipa Flores a 16 y.o. female. Procedure(s): SURGICAL EXTRACTIONS, REMOVAL OF IMPACTED TOOTH, COMPLETELY BONY (WRVU 1.93) Patient Active Problem List Diagnosis Date Noted ??? Hyperopia 10/31/2012 ??? Lyme disease 10/19/2012 ??? 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 Decreased vision 10/19/2012 ??? Dyslipidemia - low HDL, high LDL 04/18/2012 ??? Transaminitis - mild elevation / borderline ALT 04/18/2012 ??? Acanthosis nigricans 12/15/2011 ??? Exercise counseling 12/15/2011 ??? Dietary counseling and surveillance 12/15/2011 ??? Morbid obesity 12/15/2011 ??? BMI, pediatric, 99th percentile or greater for age 1112/15/2011 ??? Breathing problem 11/09/2011 ??? Asthma 11/09/2011 Past Medical History: Diagnosis Date ??? Asthma ??? Herman's palsy ??? Lyme arthritis Past Surgical History: Procedure Laterality Date ??? ADENOIDECTOMY ??? APPENDECTOMY ??? PRO UPPER GI ENDOSCOPY, BIOPSY N/A 10/24/2016 UPPER GASTROINTESTINAL ENDOSCOPY,WITH BIOPSY SINGLE OR MULTIPLE (WRVU 2.49) performed by Birdie Harrison MD at [facility] ENDOSCOPY ??? TONSILLECTOMY Social History Tobacco Use ??? Smoking status: Never Passive exposure: Yes ??? Smokeless tobacco: Never ??? Tobacco comments: mother smokes outside Substance Use Topics ??? Alcohol use: Not Currently Social History Substance and Sexual Activity Drug Use Yes ??? Types: Marijuana Allergies Allergen Reactions ??? Penicillins Hives Medications: MAR and/or home medications have been reviewed. Physical Exam: Preprocedure Vitals Current as of 01/18/22 1556 No BP, pulse, respiration, SpO2, or temperature recorded. Height: 152.4 cm (5') (07/30/21) Weight: 129.3 kg (285 lb) (07/30/21) BMI: 55.65 IBW: 45.5 kg (100 lb 4.9 oz) Airway Assessment: Mallampati: II TM distance: >3 FB Neck ROM: full Cardiovascular Assessment: Rhythm: regular Rate: normal Pulmonary Assessment: unlabored breathing Dental Assessment: Misc Assessment: IV access: Peripheral line Last Filed Perioperative Cognitive Screening None Anesthesia Plan: ASA 3 general, with a(n) intravenous induction Felipa Flores is a 16 y.o. patient who presents for surgical extraction of impacted teeth. PMH significant for: Current BMI 52 Asthma (PRN inhaler use, very infrequent) MONSE (non-compliant with CPAP device at home) Cannabis use PCN allergy Relevant meds: escitalopram, omeprazole Anesthesia hx: Plan: GA ETT (nasal NO) Standard ASA monitors Adequate IV access anais perry, md Pager [phone] Informed Consent: Anesthetic plan and risks discussed with patient. Plan discussed with resident and attending. Anesthesia Screening documented in this encounter Plan of Treatment Not on file documented as of this encounter Visit Diagnoses Not on filedocumented in this encounter Administered Medications Inactive Administered Medications - up to 3 most recent administrations Medication Order MAR Action Action Date Dose Rate Site clindamycin (Cleocin) (150 mg/mL) injection Intravenous, PRN, Starting on Mon01/19/22 at 1103, Until Mon01/19/22 at 1145, Anesthesia Intra-op, Routine Given 01/19/2022 10:58 AM EST 600 mg dexAMETHasone (Decadron) injection Intravenous, PRN, Starting on Mon01/19/22 at 1100, Until Mon01/19/22 at 1145, Anesthesia Intra-op, Routine Given 01/19/2022 11:00 AM EST 8 mg dexmedeTOMIDine (Precedex) (4 mcg/mL) bolus injection (Anesthsia) Intravenous, PRN, Starting on Mon01/19/22 at 1040, Until Mon01/19/22 at 1145, Anesthesia Intra-op, Routine Given 01/19/2022 10:42 AM EST 8 mcg Given 01/19/2022 10:40 AM EST 12 mcg fentaNYL (pf) (50 mcg/mL) multi-dose injection Intravenous, Administer over 10 Minutes, PRN, Starting on Mon01/19/22 at 1039, Until Mon01/19/22 at 1145, Anesthesia Intra-op, Routine Given 01/19/2022 10:42 AM EST 50 mcg Given 01/19/2022 10:39 AM EST 50 mcg ketorolac (Toradol) (30 mg/mL) injection Intravenous, PRN, Starting on Mon01/19/22 at 1100, Until Mon01/19/22 at 1145, Anesthesia Intra-op, Routine Given 01/19/2022 11:00 AM EST 15 mg lactated ringers infusion Intravenous, CONTINUOUS PRN, Starting on Mon01/19/22 at 1039, Until Mon01/19/22 at 1145, Anesthesia Intra-op New Bag 01/19/2022 10:39 AM EST midazolam (pf) (Versed) (1 mg/mL) multi-dose injection Intravenous, PRN, Starting on Mon01/19/22 at 1034, Until Mon01/19/22 at 1145, Anesthesia Intra-op, Routine Given 01/19/2022 10:34 AM EST 2 mg ondansetron (pf) (Zofran) (2 mg/mL) injection Intravenous, PRN, Starting on Mon01/19/22 at 1100, Until Mon01/19/22 at 1145, Anesthesia Intra-op, Routine Given 01/19/2022 11:00 AM EST 4 mg PHENYLephrine in NS (PF) (CARMELA-SYNEPHRINE) 0.8 mg/10 mL (80 mcg/mL) multi-dose injection Syrg Intravenous, PRN, Starting on Mon01/19/22 at 1105, Until Mon01/19/22 at 1145, Anesthesia Intra-op, Routine Given 01/19/2022 11:24 AM EST 160 mcg Given 01/19/2022 11:14 AM EST 160 mcg Given 01/19/2022 11:10 AM EST 80 mcg propofoL (Diprivan) 10 mg/mL bolus injection (Anesthesia) Intravenous, PRN, Starting on Mon01/19/22 at 1044, Until Mon01/19/22 at 1145, Anesthesia Intra-op Given 01/19/2022 10:52 AM EST 50 mg Given 01/19/2022 10:47 AM EST 50 mg Given 01/19/2022 10:44 AM EST 200 mg rocuronium (Zemuron) (10 mg/mL) multi-dose injection Intravenous, PRN, Starting on Mon01/19/22 at 1045, Until Mon01/19/22 at 1145, Anesthesia Intra-op, Routine Given 01/19/2022 10:45 AM EST 50 mg sugammadex (Bridion) 100 mg/mL injection Intravenous, PRN, Starting on Mon01/19/22 at 1127, Until Mon01/19/22 at 1145, Anesthesia Intra-op, Routine Given 01/19/2022 11:27 AM EST 200 mg documented in this encounter Care Teams Plumber'S Assistant Relationship Specialty Start Date End Date María Irizarry MD [address] [place] [address] PCP - General Pediatrics 12/17/21 documented as of this encounter
--- OUTSIDE RECORDS SUMMARY | 2024-03-18 11:29 | XMS_ITS | Clinical Summary ---
Author Organization [facility] Address [facility] [place] [address] Care Team Providers Care Chief Drafter Name Role Phone María Irizarry MD Primary Care Provider [phone] Allergies Active Allergy Reactions Criticality Noted Date Comments Penicillins Hives Medications Medication Sig Dispensed Refills Start Date End Date Status montelukast (SINGULAIR) 5 mg chewable tablet Take 5 mg by mouth nightly. Active FLUoxetine (PROZAC) 20 mg Tablet Daily 10/13/2015 Active Selenium Sulfide 2.25 % Shampoo twice a week 10/13/2015 Active polyethylene glycol (MIRALAX) 17 gram Powder in Packet Take 17 g by mouth daily. Active senna (EX-LAX) 15 mg Tablet, Chewable Take 1 tablet by mouth daily (after breakfast). 30 tablet 3 01/14/2016 Active Additional Information Patient not taking.Reported on 01/19/2022 escitalopram (Lexapro) 10 mg Tablet Take 10 mg by mouth daily. 07/21/2021 Active etonogestreL (Nexplanon) 68 mg Implant by Subdermal route Continuous (Device). Active HYDROcodone-acetami nophen ([place]) 5-325 mg Tablet Take 1-2 tablets by mouth every 6 hours as needed. 15 tablet 01/19/2022 Active ibuprofen (Advil) 600 mg Tablet Take 1 tablet by mouth every 6 hours as needed for Pain. 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 Acanthosis nigricans 12/15/2011 Exercise counseling 12/15/2011 Dietary counseling and surveillance 12/15/2011 Morbid obesity 12/15/2011 Overview (06/27/2012): [facility]: joined BMI: >99th% MyFoodPlan: per Mildred Leon Small portions of carbohydrates at meals and snacks = Carbohydrate counting started: 40g/meal; 15g/snack Co-morbidities: Asthma, hypercholesterolemia, borderline ALT Subspecialty care: Pulmonology Labs: Repeat fasting labs oct 2012, sooner if clinical concerns : NL: Glucose (87), AST, chol, trigl ABN: HDL (29), LDL (135), ALT (32) - just borderline NL: POCT random glucose (135), HA1C (5.5) : NL: HDL, TRIG, TFTs, ABN: chol (206), LDL (148) BMI, pediatric, 99th percentile or greater for a ge 12/15/2011 Breathing problem 11/09/2011 Asthma 11/09/2011 Resolved Problems Problem Noted Date Diagnosed Date Resolved Date Obesity peds (BMI >=95 percentile) 11/09/2011 03/07/2012 Overview (11/09/2011): BMI > 29 kg/m2 11/09/11 Immunizations Name Administration Dates Next Due Influenza Trivalent, Preservative Free 2 Family History Medical History Relation Comments Schizophrenia Father Diabetes Maternal Grandmother Cataracts Paternal Grandmother Diabetes Paternal Grandmother Autoimmune Disorder Neg Hx Celiac Disease Neg Hx Crohn Disease Neg Hx Glaucoma Neg Hx Liver Disease Neg Hx Macular Degeneration Neg Hx Retinal Detachment Neg Hx Thyroid Disease Neg Hx Ulcerative Colitis Neg Hx Relation Status Comments Father Maternal Grandmother Paternal Grandmother Social History Tobacco Use Types Packs/Day Years [...] on file Sexual Orientation Not on file Last Filed Vital Signs Vital Sign Reading Time Taken Comments Blood Pressure 142/93 01/19/2022 12:45 PM EST Pulse 74 01/19/2022 11:42 AM EST Temperature 36.7 ??C (98.1 ??F) 01/19/2022 1:02 PM ES T Respiratory Rate 16 01/19/2022 11:42 AM EST Oxygen Saturation 97% 01/19/2022 12:45 PM EST Inhaled Oxygen Concentration - - Weight 125.9 kg (277 lb 8 oz) 01/19/2022 9:38 AM EST Height 154.9 cm (5' 1) 01/19/2022 9:38 AM EST Body Mass Index 52.43 01/19/2022 9:38 AM EST Plan of Treatment Health Maintenance Due Date Last Done Comments Chlamydia Screening 09/29/2018 HPV vaccine (1 - 3-dose series) 09/29/2018 HIV screen 09/29/2021 Hepatitis C Screening 09/29/2021 Lipid Screening 09/29/2021 03/21/2012, 01/12/2011 Hepatitis B vaccine (0-59 yrs) (1) 09/29/2022 Pneumococcal Vaccine: At-Ris k 5-49yrs (1 of 2 - PCV) 09/29/2022 Tetanus/Diphtheria/Pertussis Vaccines (1 - Tdap) 09/29/2022 Covid-19 Vaccine (1 - 2023- season) 2023 Influenza (Flu) vaccine (1 o f 1 - Influenza standard series) 10/15/2023 11/10/2011 Procedures Procedure Name Priority Date/Time Associated Diagnosis Comments LIPID PANEL (REFLEX DIRECT LDL) Routine 03/21/2012 Obesity from Last 3 Months or Most Recently Relevant to Health Maintenance Results * (ABNORMAL) Lipid panel (fasting) (03/21/2012) Cholesterol, Total 176(Exter nal Lab) mg/dL Triglyceride 63(Piano Machine Operator al Lab) mg/dL HDL Cholesterol 29(ORTHOPEDIC TECH AL/ABN) md/dL LDL Cholesterol 135(EXTER NAL/ABN) mg/dL Blood specimen (specimen) Cris Dawson MD CHEMISTRY ORDERABLES from Last 3 Months or Most Recently Relevant to Health Maintenance Care Teams Chief Drafter Relationship Specialty Start Date End Date María Irizarry MD [address] [place] [address] PCP - General Pediatrics 12/17/21
--- OUTSIDE RECORDS SUMMARY | 2024-03-18 11:30 | XMS_ITS | Encounter Summary ---
Author Organization [facility] Address [facility] [place] [address] Care Team Providers Care Supervisor Laboratory Animal Facility Name Role Phone Carley Carbajal MD Primary Care Provider [phone] Encounter Details Date Type Department Care Team (Late st Contact Info) Description 10/24/2016 9:28 AM EDT Anesthesia Event [place] [address] Jailene Merchant MD [facility] [place] [address] Oscar Terrazas CRNA [facility] [place] [address] Anesthesia Record Procedure Summary Procedure Name Responsible Anesthesiologist Anesthesia Start Time Anesthesia Stop Time UPPER GASTROINTESTINAL ENDOSCOPY,WITH BIOPSY SINGLE OR MULTIPLE (WRVU 2.39) (Trunk) Jailene Merchant MD 10/24/16 0928 10/24/16 0954 Events Date Time Event Comment 10/24/2016 0917 0928 Start 0930 AN Verify 0930 An Start Data 0936 An Induction 0938 Anesthesia Ready 0951 an stop data 0954 Recovery or ICU Handoff Ginger ent care was transferred to the destination unit staff after review of the patient's medical history, current anesthetic/surgical status and plan, according to the Provider Handoff Checklist. 0954 Stop Meds Name Total IV Lidocaine 100 mg Propofol 90 mg Propofol INF 228.8 mg lactated Ringers infusion 200 mL * Agents Name O2 Air N2O Sevoflurane (et) O2 Auxiliary Flowmeter 1 * Blood No blood administrations on file. Lines, Drains, and Airways Type Details Placement Removal (RETIRED) Peripheral IV Line - Single Lumen 10/24/16; 0909; median vein (underside of arm), right; [id number] catheter system; 22 gauge, 1 in length; intradermal injection; no longer indicated, removed per policy/procedure; 10/24/16; 1036 10/24/16 0909 by Yareli De La Vega RN 10/24/16 1036 by Niesha Correia documented in this encounter Social History Tobacco [...] OR Notes * Anesthesia Postprocedure Evaluation - Jailene Merchant MD - 10/24/2016 10:54 AM EDT [facility] [place] of Anesthesiology Post-procedure Note Patient: Felipa Flores Procedure Summary Date Anesthesia Start Anesthesia Stop Room / Location 10/24/16 09 0954 [facility] / [facility] Procedure Diagnosis Surgeon Responsible Provider UPPER GASTROINTESTINAL ENDOSCOPY,WITH BIOPSY SINGLE OR MULTIPLE (WRVU 2.49) (N/A Trunk) Gastroesophageal reflux disease, esophagitis presence not specified (gerd) Birdie Harrison MD Welch, Marnie B, MD All Anesthesia Providers: Anesthesiologist: Jailene Merchant MD RADIOLOGICAL EQUIPMENT SPECIALIST: Oscar Terrazas CRNA Most Recent Vitals: 10/24/16 1031 BP: 108/74 Pulse: Resp: SpO2: 95% Pain Patient Location: PACU/SDP Level of Consciousness: Awake and Alert Pain Management: Satisfactory Analgesia PONV: None Cardiovascular Status: At Baseline and Hemodynamically Stable Respiratory Status: At Baseline and Room Air Postoperative Fluid Status: Intravascular EUvolemia Possible Anesthetic Complications: NONE apparent at time of evaluation Final Primary Anesthesia Type: General (The anesthetic type performed was the same as planned.) Comments: JAILENE MERCHANT MD Pt did well post op * Anesthesia Preprocedure Evaluation - Jailene Merchant MD - 10/23/2016 8:50 PM EDT Pre-Anesthesia Evaluation for: Felipa Flores a 11 y.o. female. Procedure(s): EGD, UPPER GI ENDOSCOPY Patient Active Problem List Diagnosis ??? Hyperopia ??? Lyme disease ??? Herman's palsy ??? Decreased vision ??? Dyslipidemia - low HDL, high LDL ??? 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 Acanthosis nigricans ??? Exercise counseling ??? Dietary counseling and surveillance ??? Morbid obesity [facility]: [...] TRIG, TFTs, ABN: chol (206), LDL (148) ??? BMI, pediatric, 99th percentile or greater for age ??? Breathing problem ??? Asthma Past Medical History: Diagnosis Date ??? Asthma ??? Herman's palsy ??? Lyme arthritis Past Surgical History: Procedure Laterality Date ??? ADENOIDECTOMY ??? APPENDECTOMY ??? TONSILLECTOMY Social History Substance Use Topics ??? Smoking status: Passive Smoke Exposure - Never Smoker ??? Smokeless tobacco: Never Used Comment: mother smokes outside ??? Alcohol use Not on file History Drug Use Not on file Allergies Allergen Reactions ??? Penicillins Hives Medications: MAR and/or home medications have been reviewed. Physical Exam: There were no vitals filed for this visit. There is no height or weight on file to calculate BMI. Airway Assessment: Mallampati: II TM distance: >3 FB Neck ROM: full Cardiovascular Assessment: Rhythm: regular Pulmonary Assessment: breath sounds clear to auscultation Dental Assessment: Misc Assessment: IV access: Peripheral line Other exam findings: Thick neck Anesthesia Plan: ASA 2 MAC, with a(n) intravenous induction 11 y/o here for GERD, morbid BMI, here for abdominal pain, no N&V PMH: asthma, depression, lungs baseline, no URIs, NPO today Has a bad experience w/ T&A and not looking oxygen mask after. Now uses CPAP at night so used to a mask PSH: T&A last year, overnight admission, no issues, appy age 15 months Plan : deep sedation, PIV The parents/legal guardians were informed of the risks of anesthesia, and consent was obtained. Therisks of anesthesia include, but are not limited to, PONV, pain, post-operative agitation, endotracheal tube placement if necessary, and other rare but serious complications such as major organ damage, allergies, intraoperative awareness, and dental/lip trauma. Region - Other Informed Consent: Anesthetic plan and risks discussed with mother. Plan discussed with RADIOLOGICAL EQUIPMENT SPECIALIST. PAT Staff Note documented in this encounter Plan of Treatment Not on file documented as of this encounter Visit Diagnoses Not on filedocumented in this encounter Administered Medications Inactive Administered Medications - up to 3 most recent administrations Medication Order MAR Action Action Date Dose Rate Site lactated Ringers infusion 100 mL/hr, Intravenous, CONTINUOUS, Starting on Mon10/24/16 at 0930, Until Mon10/24/16 at 1037, Endoscopy (Day of Procedure) New Bag 10/24/2016 9:28 AM EDT lidocaine (PF) (XYLOCAINE) 100 mg/5 mL (2 %) injection PRN, Starting on Mon10/24/16 at 0936, Until Mon10/24/16 at 0956, Anesthesia Intra-op, Routine Given 10/24/2016 9:36 AM EDT 100 mg propofol (DIPRIVAN) 10 mg/mL bolus injection (Anesthesia) PRN, Starting on Mon10/24/16 at 0936, Until Mon10/24/16 at 0956, Anesthesia Intra-op Given 10/24/2016 9:38 AM EDT 40 mg Given 10/24/2016 9:36 AM EDT 50 mg propofol (DIPRIVAN) infusion CONTINUOUS PRN, Starting on Mon10/24/16 at 0936, Until Mon10/24/16 at 0956, Anesthesia Intra-op, Routine New Bag 10/24/2016 9:36 AM EDT 200 mcg/kg/min 124.8 mL/hr documented in this encounter Care Teams Supervisor Laboratory Animal Facility Relationship Specialty Start Date End Date Carley Carbajal MD [address] [place], [place] [address] [address] PCP - General Pediatrics 07/20/16 12/16/21 documented as of this encounter
--- OUTSIDE RECORDS SUMMARY | 2024-03-18 11:30 | XMS_ITS | Encounter Summary ---
Author Organization [facility] Address [facility] [place] [address] Care Team Providers Care Quality Control Technician Name Role Phone Carley Carbajal MD Primary Care Provider [phone] Reason for Visit * Consultation (Routine) - Closed Specialty Diagnoses / Procedures Referred By Noreen farooq Referred To Contact Maxillofacial Surgery Diagnoses eval # 1 16 17 32 for extrqaction PANO 02/10/2021 [place] [address] [facility] [address] [place] [id number] Referral ID Status Reason Start Date Expiration Date Visits Re quested Visits Authorized [id number] Closed 02/17/2021 02/17/2022 1 1 Encounter Details Date Type Department Care Team (Late st Contact Info) Description 07/30/2021 9:30 AM EDT Office Visit [place]ill[place] [phone] Figueroa Jones MD [facility] [place] [address] Dental impaction Social History Tobacco Use Types Packs/Day Years [...] Sign Reading Time Taken Comments Blood Pressure - - Pulse - - Temperature - - Respiratory Rate - - Oxygen Saturation - - Inhaled Oxygen Concentration - - Weight 129.3 kg (285 lb) 07/30/2021 9:41 AM EDT Height 152.4 cm (5') 07/30/2021 9:41 AM EDT Body Mass Index 55.66 07/30/2021 9:41 AM EDT Body Mass Index Percentile 100.00% 07/30/2021 9:4 1 AM EDT Growth Chart: CDC (Girls, 2- 20 Years) documented in this encounter Progress Notes * Figueroa Jones MD - 07/30/2021 4:30 PM EDT Images from the original note were not included. [facility] INITIAL VISIT - THIRD MOLAR EXTRACTION Name: Felipa Flores Age/Sex: 15 y.o. female History of Present Illness Felipa Flores is a 15 y.o. female referred by Pao Sauceda for consultation regarding 3rd molar extractions. History was obtained through review of the relevant records, discussion with referring physician and/or patient interview. Pertinent notations from today's history: ??? Dentist recommend evaluation of extractions wisdom teeth ??? Aware she is missing tooth #32 ??? No pain at this time but has had symptoms in the past Past Medical/Social/Dental History Past Medical History: Diagnosis Date ??? Asthma ??? Herman's palsy ??? Lyme arthritis Patient Active Problem List Diagnosis Code ??? Breathing problem R06.9 ??? Asthma J45.909 ??? Acanthosis nigricans L83 ??? Exercise counseling Z71.82 ??? Dietary counseling and surveillance Z71.3 ??? Morbid obesity E66.01 ??? BMI, pediatric, 99th percentile or greater for age Z68.54 ??? Dyslipidemia - low HDL, high LDL E78.5 ??? Transaminitis - mild elevation / borderline ALT R74.01 ??? Lyme disease A69.20 ??? 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 Decreased vision H54.7 ??? Hyperopia H52.00 Social History Tobacco Use ??? Smoking status: Passive Smoke Exposure - Never Smoker ??? Smokeless tobacco: Never Used ??? Tobacco comment: mother smokes outside Substance Use Topics ??? Alcohol use: Not on file ??? FLUoxetine (PROZAC) 20 mg Tablet ??? loratadine (CLARITIN) 10 mg Tablet ??? Selenium Sulfide 2.25 % Shampoo ??? polyethylene glycol (MIRALAX) 17 gram Powder in Packet ??? polyethylene glycol (MIRALAX) 17 gram/dose Powder ??? senna (EX-LAX) 15 mg Tablet, Chewable ??? albuterol-ipratropium (COMBIVENT) 18-103 mcg/actuation inhaler ??? montelukast (SINGULAIR) 5 mg chewable tablet ??? fluticasone (FLONASE) 50 mcg/actuation nasal spray ??? fluticasone-salmeterol (ADVAIR HFA) 115-21 mcg/actuation inhaler Allergies Allergen Reactions ??? Penicillins Hives Review of Systems Pertinent positive and negative findings discussed above. No other findings on review of constitutional, visual, cardiovascular, respiratory, gastrointestinal, genitourinary, musculoskeletal, dermatologic, neurological, psychiatric, endocrine, hematologic or immunologic systems. Physical Exam Vitals: There were no vitals taken for this visit. There is no height or weight on file to calculate BMI. General: No acute distress, pleasant Focused oral exam: No trismus No oral lesions visualized Poorly cleansible distal to second molars Periodontal probing distal to second molars shows bleeding upon probing and depths >4mm Minimal attached tissue distal to second molars Neuro: a/o x3 Neck: soft, supple Psych: appropriate, responds to questions normally Imaging Personally reviewed and evaluated. Complete bone impacted 1, 16, 17 missing tooth #32 ASSESSMENT & RECOMMENDATIONS As above. Impacted 1, 16, 17 Recommendations/plan: Will extract 3 wisdom teeth at the outpatient surgery center with general anesthesia. She will needgeneral anesthesia in order to have this procedure performed After discussion of the risks/benefits of local anesthesia vs. IV sedation vs. general anesthesia in the clinical scenario of the patient's presentation, we will opt to plan for general anesthesia inOR ([facility]). Consent forms: The procedure consent form and Adult Acute Opioid Consent were reviewed and signed. . NPO instructions were reviewed. Direct review of the findings on clinical and radiographic exam as well as a discussion of the risks and anticipated benefits of the proposed surgical intervention was had. The possibility of bleeding, infection, injury to adjacent teeth, nerves and sinuses was reviewed with specific attention to inferior alveolar and lingual nerves and the potential for tongue and/or lip paresthesia. The unlikely event of jaw fracture during the procedure was discussed as well. Persistent opening or fistula tothe maxillary sinus was also discussed. Felipa Flores was given the opportunity to ask questions regarding the findings on clinical and radiographic examination and the recommended treatment. Preoperative and postoperative management was also discussed with specific attention to post operative alteration of diet and physical activity and the proper use of analgesics. We appreciate the opportunity to be involved in Ms. Flores's care. Figueroa Jones MD, DMD 07/21/2021 10:12 AM This note may have incorporated [id number] technology and though reviewed typographical or syntax errors may remain. documented in this encounter Plan of Treatment Not on file documented as of this encounter Visit Diagnoses Diagnosis Dental impaction Disturbances in tooth eruption documented in this encounter Care Teams Quality Control Technician Relationship Specialty Start Date End Date Carley Carbajal MD [address] [place] [address] PCP - General Pediatrics 07/20/16 12/16/21 documented as of this encounter
--- OUTSIDE RECORDS SUMMARY | 2024-03-18 11:30 | XMS_ITS | Encounter Summary ---
Author Organization [facility]ly [facility] [place] [address] Care Team Providers Care Java Golden Gate Developer Name Role Phone Carley Carbajal MD Primary Care Provider [phone] Reason for Visit * Reason Onset Date Comments Results 10/28/2016 Encounter Details Date Type Department Care Team (Late st Contact Info) Description 10/28/2016 Telephone Pediatric [place] [phone] Birdie Harrison MD Results Social History Tobacco Use Types Packs/Day Years Used Date Smoking Tobacco: Passive Smo ke Exposure - Never Smoker Smokeless Tobacco: Never Comments:mother smokes outsi de Sex and Gender Information Value Date Recorded Sex Assigned at Not on file Gender Identity Not on file Sexual Orientation Not on file documented as of this encounter Miscellaneous Notes * Telephone Encounter - Marissa Jose RN - 10/28/2016 10:59 AM EDT Reviewed normal results with Mom. Surgical Pathology DIAGNOSIS A - Duodenum, ??biopsy: - ??Duodenal mucosa, negative for diagnostic abnormality ??. B - Stomach, ??biopsy: - Body/fundic-type mucosa, negative for diagnostic abnormality. C - Esophagus, ??biopsy: - Squamous mucosa negative for diagnostic abnormality. * Telephone Encounter - Marissa Jose RN - 10/28/2016 10:58 AM EDT ----- Message from Birdie Harrison MD sent at 10/27/2016 3:07 PM EDT ----- Can you please nikita parents know that biopsy is normal. documented in this encounter Plan of Treatment Not on file documented as of this encounter Visit Diagnoses Not on filedocumented in this encounter Care Teams Java Golden Gate Developer Relationship Specialty Start Date End Date Carley Carbajal MD [address] [place] [address] PCP - General Pediatrics 07/20/16 12/16/21 documented as of this encounter
--- OUTSIDE RECORDS SUMMARY | 2024-03-18 11:30 | XMS_ITS | Encounter Summary ---
Author Organization [facility] [place] [address] Care Team Providers Care Chain Mender Name Role Phone Carley Carbajal MD Primary Care Provider [phone] Encounter Details Date Type Department Care Team (Late st Contact Info) Description 10/24/2016 Orders Only [place] [address] Birdie Harrison MD Social History Tobacco Use Types Packs/Day Years Used Date Smoking Tobacco: Passive Smo ke Exposure - Never Smoker Smokeless Tobacco: Never Comments:mother smokes outsi de Sex and Gender Information Value Date Recorded Sex Assigned at Not on file Gender Identity Not on file Sexual Orientation Not on file documented as of this encounter Progress Notes * Marissa Jose, RN - 10/24/2016 2:05 PM EDT Insurance requests 90 day supply and 40 mg strength (one tablet daily) documented in this encounter Plan of Treatment Not on file documented as of this encounter Visit Diagnoses Not on filedocumented in this encounter Care Teams Chain Mender Relationship Specialty Start Date End Date Carley Carbajal MD [address] [place] [address] [place], [place] [id number] PCP - General Pediatrics 07/20/16 12/16/21 documented as of this encounter
--- OUTSIDE RECORDS SUMMARY | 2024-03-18 11:30 | XMS_ITS | Encounter Summary ---
Author Organization [facility] [place] [address] Care Team Providers Care Africana Studies Professor Name Role Phone Carley Carbajal MD Primary Care Provider [phone] Encounter Details Date Type Department Care Team (Late st Contact Info) Description 10/24/2016 9:45 AM EDT - 10/24/2016 10:30 AM EDT [place] [id number] Birdie Harrison MD UPPER GASTROINTESTINAL ENDOSCOPY,WITH BIOPSY SINGLE OR MULTIPLE (WRVU 2.39) Social History Tobacco Use Types Packs/Day Years [...] Sign Reading Time Taken Comments Blood Pressure 108/74 10/24/2016 10:31 AM EDT Pulse 78 10/24/2016 9:55 AM EDT Temperature - - Respiratory Rate 18 10/24/2016 9:55 AM EDT Oxygen Saturation 95% 10/24/2016 10:31 AM EDT Inhaled Oxygen Concentration - - Weight - - Height - - Body Mass Index - - documented in this encounter Discharge Instructions * Discharge Instructions* Niesha Correia RN - 10/24/2016 9:58 AM EDT UPPER GI ENDOSCOPY WHAT TO EXPECT AFTER THE PROCEDURE After the test your child may feel a little more gassy or bloated than usual, this is normal. ACTIVITY Your child has received medications during a procedure today that made him/her sleepy and relieved pain and/or anxiety. Watch your child closely for the next 12 hours Your child may be sleepy, unsteady, dizzy, or irritable For the next 24 Hours, your child should avoid activities that require him/her to be fully alert and coordinated such as: ?? Swimming, biking,skating,climbing,swing sets, or sports ?? Driving( for teens) Supervise your child while he/she is using the stairs, up or down Your child can return to other normal activities (such as school) tomorrow if he/she is awake and alert Sleeping: It is OK for your child to fall back to sleep once she/he has woken up after the procedure Diet ?? Start with clear liquids. Some children may have nausea and vomiting after receiving these medications If this happens, continue clear liquids until your child tolerates them without vomiting. Progress to usual diet as tolerated ?? Drink plenty of fluids. Medications Your child may have a mild sore throat. Ice chips, popsicles, over the counter throat lozenges or spray may help numb his/her throat. This procedure should not cause a fever. Your child may resume taking his/her usual medications IV SITE-- slight redness or tenderness is normal, you can use warm compresses if you get concerned.If the tenderness +/or redness increases or foul drainage and a red streak occurs, please contact your PCP immediately. WHEN SHOULD YOU CALL FOR HELP? Call 911 anytime you think that you need emergency care. For example, call if: You passed out (lost consciousness). You cough up blood. You vomit blood or what looks like coffee grounds. You pass maroon or very bloody stools. Call your healthcare provider or seek immediate medical attention if: You have trouble swallowing. You have belly pain. Your stools are black or tarlike or have streaks of blood. You are sick to your stomach or cannot keep fluids down. Watch closely for changes in your health, and be sure to contact your doctor IF Your throat still hurts after a day or two You do not get better as expected. Monday-Monday Your pediatric gastroenteroligist Same Day Endo [phone] 7a-8p Otherwise contact [phone] and ask to speak to the pediatric net programmer apprenticeship consultant Follow-up care is a perdue part of your treatment and safety. Be sure to make and go to all appointments, and call your doctor if you are having problems. Instructions have been reviewed and parent/ guardian expresses understanding documented in this encounter Medications at Time of Discharge Medication Sig Dispensed Refills Start Date End Date FLUoxetine (PROZAC) 20 mg Tablet Daily 10/13/2015 Selenium Sulfide 2.25 % Shampoo twice a week 10/13/2015 polyethylene glycol (MIRALAX) 17 gram Powder in Packet Take 17 g by mouth daily. senna (EX-LAX) 15 mg Tablet, Chewable Take 1 tablet by mouth daily (after breakfast). 30 tablet 3 01/14/2016 montelukast (SINGULAIR) 5 mg chewable tablet Take 5 mg by mouth nightly. loratadine (CLARITIN) 10 mg Tablet Daily 11/26/2013 01/19/2022 polyethylene glycol (MIRALAX) 17 gram/dose Powder Take 17 g by mouth daily. 255 g 6 01/14/2016 01/19/2022 albuterol-ipratropium (COMBIVENT) 18-103 mcg/actuation inhalerIndications:Ast hma 2 puffs twice daily with Advair and additional dose before exercise 2 Inhaler 4 04/06/2012 01/18/2022 fluticasone (FLONASE) 50 mcg/actuation nasal spray 1 spray by Each Nare route nightly. 01/19/2022 fluticasone-salmeterol (ADVAIR HFA) 115-21 mcg/actuation inhalerIndications:Ast hma Inhale 2 puffs into the lungs 2 times daily. 1 Inhaler 12 11/09/2011 01/18/2022 documented as of this encounter H&P Notes * Birdie Harrison MD - 10/24/2016 9:27 AM EDT HPI: 11 yrs old female with chronic GERD, symptoms not optimally responding to anti acid meds. Planto get EGD with biopsy to evaluate further. Allergies Allergen Reactions ??? Penicillins Hives Scheduled Meds: Continuous Infusions: ??? lactated Ringers PRN Meds:. Active Ambulatory Problems Diagnosis Date Noted ??? Breathing problem 11/09/2011 ??? Asthma 11/09/2011 ??? Acanthosis nigricans 12/15/2011 ??? Exercise counseling 12/15/2011 ??? Dietary counseling and surveillance 12/15/2011 ??? Morbid obesity 12/15/2011 ??? BMI, pediatric, 99th percentile or greater for age 1112/15/2011 ??? Dyslipidemia - low HDL, high LDL 04/18/2012 ??? Transaminitis - mild elevation / borderline ALT 04/18/2012 ??? Lyme disease 10/19/2012 ??? 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 Decreased vision 10/19/2012 ??? Hyperopia 10/31/2012 Resolved Ambulatory Problems Diagnosis Date Noted ? ? Obesity peds (BMI >=95 percentile) 11/09/2011 Past Medical History: Diagnosis Date ??? Asthma ??? Herman's palsy ??? Lyme arthritis Family History Problem Relation Age of Onset ??? Diabetes Maternal Grandmother ??? Cataracts Paternal Grandmother ??? Diabetes Paternal Grandmother ??? Schizophrenia Father ??? Glaucoma Neg Hx ??? Macular Degeneration Neg Hx ??? Retinal Detachment Neg Hx ??? Ulcerative Colitis Neg Hx ??? Crohn Disease Neg Hx ??? Celiac Disease Neg Hx ??? Liver Disease Neg Hx ??? Thyroid Disease Neg Hx ??? Autoimmune Disorder Neg Hx Physical Exam General appearance: Alert, Active, No acute distress, No pallor, No cyanosis, No icterus HEENT: Normocephalic, atraumatic, neck supple, No oral sores, No cervical lymphadenopathy CVS: s1 s2 normal, regular rate, rhythm, no murmur RESPI : clear to ascultation b/l, no added sounds ABDOMEN: Soft, Non tender, non distended, no organomegaly noted, BS present A/P: 11 yrs old female with chronic GERD, symptoms not optimally responding to anti acid meds. Planto get EGD with biopsy to evaluate further. Obtained informed consent. Birdie Harrison MD documented in this encounter Plan of Treatment Not on file documented as of this encounter Procedures Procedure Name Priority Date/Time Associated Diagnosis Comments SURGICAL PATHOLOGY REPORT Routine 10/24/2016 9:50 AM EDT SPECIMEN TO PATHOLOGY Routine 10/24/2016 9:50 AM EDT SPECIMEN TO PATHOLOGY Routine 10/24/2016 9:50 AM EDT SPECIMEN TO PATHOLOGY Routine 10/24/2016 9:50 AM EDT UPPER GI ENDOSCOPY Routine 10/24/2016 9: 31 AM EDT UPPER GASTROINTESTINAL ENDOSCOPY,WITH BIOPSY SINGLE OR MULTIPLE (WRVU 2.39) 10/24/2016 9:30 AM EDT Gastroesophageal reflux disease, esophagitis presence not specified documented in this encounter Results * Surgical Pathology Report (10/24/2016 9:50 AM EDT) Final Diagnosis [id number] ? Location: ; 06; A The signing pathologist has (i) examined the relevant preparation(s) for the specimen(s) and (ii) rendered or confirmed the diagnosis(es). . ?Surgical Pathology DIAGNOSIS A - Duodenum, ??biopsy: - ??Duodenal mucosa, negative for diagnostic abnormality ??. B - Stomach, ??biopsy: - Body/fundic-typ e mucosa, negative for diagnostic abnormality. C - Esophagus, ??biopsy: - Squamous mucosa negative for diagnostic abnormality. Electronically signed by: ??Omero Hernandez MD Verified: ??10/26/2016 ?Pathologist CLINICAL INFORMATION Specimen Submitted: A - Duodenum B - Stomach C - Esophagus Clinical History: GERD Clinical Diagnosis: GERD SPECIMEN PROCESSING A - Labeled/Fixativ e: Duodenum, formalin. Quantity/Size: Four, 0.3 cm. Tissue Description: Soft, cesar-pink tissue. Sections/Proces sing: (T1) B - Labeled/Fixativ e: Stomach, formalin. Quantity/Size: Five, 0.2-0.5 cm. Tissue Description: Strips of cesar-pink mucosal tissue. Sections/Proces sing: (T1) C - Labeled/Fixativ e: Esophagus, formalin. Quantity/Size: Fragments, 0.1-0.2 cm. Tissue Description: Soft, wispy and friable cesar-white tissue. Sections/Proces sing: (T1) ??pps 10/26/2016 3:53 PM EDT [facility] GI Biopsy 10/24/2016 9:50 AM EDT 10/24/2016 9:50 AM EDT GI Biopsy 10/24/2016 9:50 AM EDT 10/24/2016 9:50 AM EDT GI Biopsy 10/24/2016 9:50 AM EDT 10/24/2016 9:50 AM EDT Birdie Harrison MD PATHOLOGY/CYTOLOGY O ARIES Performing Organization Address [facility] Co de Phone Number [facility] [place] [address] * Specimen to Pathology (surgical or derm) (10/24/2016 9:50 AM EDT) AP Specimen 10/24/2016 9:50 AM EDT 10/24/2016 9:51 AM EDT Narrative [facility] - 10/24/2016 9:51 AM EDT Specimen requisition ordered. ??Separate Pathology report to follow Birdie Harrison MD PATHOLOGY/CYTOLOGY O ARIES Performing Organization Address [facility] Co de Phone Number [facility] [place] [address] * Specimen to Pathology (surgical or derm) (10/24/2016 9:50 AM EDT) AP Specimen 10/24/2016 9:50 AM EDT 10/24/2016 9:51 AM EDT Narrative [facility] - 10/24/2016 9:51 AM EDT Specimen requisition ordered. ??Separate Pathology report to follow Birdie Harrison MD PATHOLOGY/CYTOLOGY O RDNAHUN Performing Organization Address [facility]/[place] [address] * Specimen to Pathology (surgical or derm) (10/24/2016 9:50 AM EDT) AP Specimen 10/24/2016 9:50 AM EDT 10/24/2016 9:51 AM EDT Narrative [facility] - 10/24/2016 9:51 AM EDT Specimen requisition ordered. ??Separate Pathology report to follow Birdie Harrison MD PATHOLOGY/[place] [address] * UPPER GI ENDOSCOPY (10/24/2016 9:31 AM EDT) UPPER GI ENDOSCOPY [facility] Procedure Date: 10/24/2016 9:31 AM ? Patient Name: Felipa Flores ? N: [id number] ? Date of : 2005 ? Age: 11 ? Order #: [id number] ? Instrument Name: [id number] ? Procedure: ? Upper GI endoscopy Indications: ? Heartburn Providers: ? Birdie Harrison MD, Marilou Spann RN, ? Amina Mathias MD: ?Carley Carbajal MD Medicines: ? General Anesthesia Complications: ? No immediate complications. Procedure: ? Pre-Anesthesia Assessment: ? - [place] Protocol: ? - Pre-procedure Verification: Prior ? to the procedure, the patient's ? identity was verified by full name, ? date of and medical record ? number. The patient's identity was ? verified on all pertinent medical ? records, including History and ? Physical. Also prior to the ? procedure, a History and Physical was ? performed, and patient medications, ? allergies and sensitivities were ? reviewed. The patient's tolerance of ? previous anesthesia was reviewed. The ? risks and benefits of the procedure ? and the sedation options and risks ? were discussed with the patient. All ? questions were answered and informed ? consent was obtained. ? - Marking: The endoscopic procedure ? was visually marked on a patient ? wrist band delineating the patient ? name, proposed procedure and ? endoscopist's initials. ? - Time-Out: Prior to the start of the ? procedure, the patient's ? identification, proposed procedure, ? accurate signed consent, correctly ? labeled images and records, and need ? for prophylactic antibiotics were ? verified by the physician and the ? heavy equipment technician in the endoscopy suite. ? The procedure, indications, benefits, ? risks and alternatives were explained ? to the patient. Specifically ? discussed were potential ? complications including, but not ? limited to, bleeding, perforation, ? infection, missing a cancer, and ? adverse medication reactions. The ? Endoscope was introduced through the ? mouth, and advanced to the second ? part of duodenum. The patient ? tolerated the procedure well. The ? upper GI endoscopy was accomplished ? without difficulty. The patient ? tolerated the procedure well. ? Findings: ? The examined esophagus was normal. Biopsies were ? taken with a cold forceps for histology. ? The entire examined stomach was normal.Retroflexi on ? showed mild hiatal hernia. Biopsies were taken with a ? cold forceps for histology. ? The examined duodenum was normal. Biopsies were taken ? with a cold forceps for histology. ? Moderate Sedation: ? refer to anesthesia note for further detail Impression: ?- Normal esophagus. Biopsied. ? - Normal stomach. Biopsied. ? - Normal examined duodenum. Biopsied. Recommendation: ?- Discharge patient to home (with ? parent). ? - Telephone GI clinic for pathology ? results in 1 week. ? Procedure Code(s): ?? --- Professional --- ? 19738, Esophagogastroduo denoscopy, ? flexible, transoral; with biopsy, ? single or multiple CPT copyright 2016 [employer]. All rights reserved. The codes documented in this report are preliminary and upon brush cleaner review may be revised to meet current compliance requirements. Attending Participation: ? I personally performed the entire procedure. ? Birdie Harrison MD 10/24/2016 9:53:42 AM Number of Addenda: 0 Note Initiated On: 10/24/2016 9:31 AM PROVATION 10/24/2016 9:31 AM EDT Carley Carbajal MD GENERAL SURGICAL ORD ERABLES PROVATION documented in this encounter Visit Diagnoses Diagnosis Gastroesophageal reflux disease, esophagitis presence not specified documented in this encounter Active and Recently Administered Medications Times are shown in EDT. Continuous Medication Order 10/22/2016 10/23/2016 10/24/2016 lactated Ringers infusion (CANCELED) 100 mL/hr, Intravenous, CONTINUOUS, Starting on Mon10/24/16 at 0930, Until Mon10/24/16 at 1037, Endoscopy (Day of Procedure) 0928 (New Bag - Prov ider: Oscar Terrazas CRNA)0948 (Anesthesia Volume Adjustment - Provider: Oscar Terrazas CRNA) documented in this encounter Care Teams Africana Studies Professor Relationship Specialty Start Date End Date Carley Carbajal MD [address] [place] [address] [place] [address] PCP - General Pediatrics 07/20/16 12/16/21 documented as of this encounter
--- OUTSIDE RECORDS SUMMARY | 2024-03-18 11:30 | XMS_ITS | Encounter Summary ---
Author Organization [facility] [place] [address] Care Team Providers Care Senior Safety Management Consultant Name Role Phone Carley Carbajal MD Primary Care Provider [phone] Encounter Details Date Type Department Care Team (Late st Contact Info) Description 07/26/2021 Telephone [place] [phone] Erin Davila Social History Tobacco Use Types Packs/Day Years Used Date Smoking Tobacco: Passive Smo ke Exposure - Never Smoker Smokeless Tobacco: Never Comments:mother smokes outsi de Sex and Gender Information Value Date Recorded Sex Assigned at Not on file Gender Identity Not on file Sexual Orientation Not on file documented as of this encounter Miscellaneous Notes * Telephone Encounter - Erin Davila - 07/26/2021 10:02 AM EDT Left message for Sonali to call to reschedule Felipa's Sunday 07/30 appt to earlier in the day. Try for 7:30am. If you need to double book, do it before noon. E[facility] is unavailable in the afternoon! documented in this encounter Plan of Treatment Not on file documented as of this encounter Visit Diagnoses Not on filedocumented in this encounter Care Teams Senior Safety Management Consultant Relationship Specialty Start Date End Date Carley Carbajal MD [address] [place], [place] [id number] PCP - General Pediatrics 07/20/16 12/16/21 documented as of this encounter
--- OUTSIDE RECORDS SUMMARY | 2024-03-18 11:30 | XMS_ITS | Encounter Summary ---
Author Organization Formerly [facility] [place] [address] Care Team Providers Care Tea Plantation Worker Name Role Phone Carley Carbajal MD Primary Care Provider Encounter Details Date Type Department Care Team (Late st Contact Info) Description 10/24/2016 Orders Only [place] [address] Birdie Harrison MD Social History Tobacco Use Types Packs/Day Years Used Date Smoking Tobacco: Passive Smo ke Exposure - Never Smoker Smokeless Tobacco: Never Comments:mother smokes outsi de Sex and Gender Information Value Date Recorded Sex Assigned at Not on file Gender Identity Not on file Sexual Orientation Not on file documented as of this encounter Plan of Treatment Not on file documented as of this encounter Visit Diagnoses Not on filedocumented in this encounter Care Teams Tea Plantation Worker Relationship Specialty Start Date End Date Carley Carbajal MD [address] [place] [address] PCP - General Pediatrics 07/20/16 12/16/21 documented as of this encounter
--- OUTSIDE RECORDS SUMMARY | 2024-03-18 11:31 | XMS_ITS | Encounter Summary ---
Author Organization [facility] [place] [address] Care Team Providers Care Continuity Clerk Name Role Phone Carley Carbajal MD Primary Care Provider [phone] Encounter Details Date Type Department Care Team (Latest Contact Info) Description 10/24/2016 8:45 AM EDT - 10/24/2016 10:43 AM EDT Hospital [place] [phone] Birdie Harrison MD Discharge Disposition: Home Social History Tobacco Use [...] WHEN SHOULD YOU CALL FOR HELP? Call [phone] anytime you think that you need emergency [...] Monday-Monday Your pediatric gastroenteroligist Same Day Endo [phone] 7a-8p Otherwise contact [phone] and ask to speak to the pediatric dining chair seat cushion trimmer instructor product inspection Follow-up care is a perdue part of [...] ALT 04/18/2012 ??? Lyme disease 10/19/2012 ??? 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 Decreased vision 10/19/2012 ??? [...] Report (10/24/2016 9:50 AM EDT) Final Diagnosis [id number] ? Location: ; [facility]; A The signing pathologist has (i) examined [...] sing: (T1) ??pps 10/26/2016 3:53 PM EDT [facility] GI Biopsy 10/24/2016 9:50 AM EDT 10/24/2016 9:50 AM EDT GI Biopsy 10/24/2016 9:50 AM EDT 10/24/2016 9:50 AM EDT GI Biopsy 10/24/2016 9:50 AM EDT 10/24/2016 9:50 AM EDT Birdie Harrison MD PATHOLOGY/CYTOLOGY O ARIES Performing Organization Address [facility] [place] [address] * Specimen to Pathology (surgical or derm) (10/24/2016 9:50 AM EDT) AP Specimen 10/24/2016 9:50 AM EDT 10/24/2016 9:51 AM EDT Narrative [facility] - 10/24/2016 9:51 AM EDT Specimen requisition ordered. ??Separate Pathology report to follow Birdie Harrison MD PATHOLOGY/CYTOLOGY O ARIES Performing Organization Address City/[facility]/[place] [address] * Specimen to Pathology (surgical or derm) (10/24/2016 9:50 AM EDT) AP Specimen 10/24/2016 9:50 AM EDT 10/24/2016 9:51 AM EDT Narrative [facility] - 10/24/2016 9:51 AM EDT Specimen requisition ordered. ??Separate Pathology report to follow Birdie Harrison MD PATHOLOGY/CYTOLOGY O RDNAHUN Performing Organization Address City/[facility]/ZIP Co de Phone Number [facility] [place] [address] * Specimen to Pathology (surgical or derm) (10/24/2016 9:50 AM EDT) AP Specimen 10/24/2016 9:50 AM EDT 10/24/2016 9:51 AM EDT Narrative [facility] - 10/24/2016 9:51 AM EDT Specimen requisition ordered. ??Separate Pathology report to follow Birdie Harrison MD PATHOLOGY/CYTOLOGY O ARIES [facility] [place] [address] * UPPER GI ENDOSCOPY (10/24/2016 9:31 AM EDT) UPPER GI ENDOSCOPY [facility] Endoscopy Procedure Date: 10/24/2016 9:31 AM ? Patient Name: Felipa Flores ? Date of : 2005 ? Age: 11 ? Order #: [id number] ? Instrument Name: [id number] ? Procedure: ? Upper GI endoscopy Indications: ? Heartburn Providers: ? Birdie Harrison MD, Marilou Spann RN, ? Amina Mathias MD: ?Carley Carbajal MD Medicines: ? General Anesthesia Complications: ? No immediate complications. Procedure: ? Pre-Anesthesia Assessment: ? - [place] Protocol: ? - Pre-procedure Verification: Prior ? [...] verified by the physician and the ? it desktop support technician in the endoscopy suite. ? The [...] Procedure Code(s): ?? --- Professional --- ? 68261, Esophagogastroduo denoscopy, ? flexible, transoral; with biopsy, ? single or multiple CPT copyright 2016 [employer]. All rights reserved. The codes documented in this report are preliminary and upon supervisor sulfuric acid plant review may be revised to meet current compliance requirements. Attending Participation: ? I personally performed the entire procedure. ? Birdie Harrison MD 10/24/2016 9:53:42 AM Number of Addenda: 0 Note Initiated On: 10/24/2016 9:31 AM PROVATION 10/24/2016 9:31 AM EDT Carley Carbajal MD GENERAL SURGICAL ORD ERABLES PROVATION documented in this encounter Visit Diagnoses Not on filedocumented in this encounter Active and Recently Administered Medications Times are shown in EDT. Continuous Medication Order 10/22/2016 10/23/2016 10/24/2016 lactated Ringers infusion (CANCELED) 100 mL/hr, Intravenous, CONTINUOUS, Starting on Mon10/24/16 at 0930, Until Mon10/24/16 at 1037, Endoscopy (Day of Procedure) 0928 (New Bag - Prov ider: Oscra Terrazas CRNA)0948 (Anesthesia Volume Adjustment - Provider: Oscar Terrazas CRNA) documented in this encounter Care Teams Continuity Clerk Relationship Specialty Start Date End Date Carley Carbajal MD [address] [place] [address] [place] [address] PCP - General Pediatrics 07/20/16 12/16/21 documented as of this encounter
--- OUTSIDE RECORDS SUMMARY | 2024-03-18 11:31 | XMS_ITS | Encounter Summary ---
[place] [address] Care Team Providers Care Outboard System Operator Name Role Phone Kirt Mcgill MD Primary Care Provider [phone] Encounter Details Date Type Department Care Team (Late st Contact Info) Description 10/30/2012 Telephone Pediatrics at [address] [phone] Kirt Mcgill MD [address] [place] [address] Social History Tobacco Use Types Packs/Day Years Used Date Smoking Tobacco: Passive Smo ke Exposure - Never Smoker Comments:mother smokes outsi de Sex and Gender Information Value Date Recorded Sex Assigned at Not on file Gender Identity Not on file Sexual Orientation Not on file documented as of this encounter Miscellaneous Notes * Telephone Encounter - Cruz Barroso - 10/30/2012 3:24 PM EDT Called 2x to reschedule follow up. Cris will send out letter to PCP. documented in this encounter Plan of Treatment Not on file documented as of this encounter Visit Diagnoses Not on filedocumented in this encounter Care Teams Outboard System Operator Relationship Specialty Start Date End Date Kirt Mcgill MD [address] [facility], [place] [id number] PCP - General 11/09/11 07/19/16 documented as of this encounter
--- OUTSIDE RECORDS SUMMARY | 2024-03-18 11:31 | XMS_ITS | Encounter Summary ---
Author Organization Formerly [facility] [place] [address] Care Team Providers Care Funds Development Director Name Role Phone Carley Carbajal MD Primary Care Provider [phone] Encounter Details Date Type Department Care Team (Late st Contact Info) Description 2016 External Results [place] [address] Birdie Harrison MD Social History Tobacco Use [...] Procedure Name Priority Date/Time Associated Diagnosis Comments EXTERNAL LAB PEDIATRIC RESUL TS PANEL Routine 2016 documented in this encounter Results * Pediatric External Results (2016) Birdie Harrison MD POINT OF CARE TEST O RDERABLES documented in this encounter Visit Diagnoses Not on filedocumented in this encounter Care Teams Funds Development Director Relationship Specialty Start Date End Date Carley Carbajal MD [address] [place] [address] PCP - General Pediatrics 07/20/16 12/16/21 documented as of this encounter
--- OUTSIDE RECORDS SUMMARY | 2024-03-18 11:31 | XMS_ITS | Encounter Summary ---
Author Organization [facility] [place] [address] Care Team Providers Care Manager Terminal Name Role Phone Carley Carbajal MD Primary Care Provider [phone] Encounter Details Date Type Department Care Team (Late st Contact Info) Description 10/03/2016 External Results [place] [address] Birdie Harrison MD Social History Tobacco Use [...] Results * Pediatric External Results (2016) Birdie Harrsion MD POINT OF CARE TEST O RDERABLES documented in this encounter Visit Diagnoses Not on filedocumented in this encounter Care Teams Manager Terminal Relationship Specialty Start Date End Date Carley Carbajal MD [address] [place] [address] PCP - General Pediatrics 07/20/16 12/16/21 documented as of this encounter
--- OUTSIDE RECORDS SUMMARY | 2024-03-18 11:31 | XMS_ITS | Encounter Summary ---
Author Organization [facility] [place] [address] Care Team Providers Care Senior Trial Attorney Name Role Phone Kirt Mcgill MD Primary Care Provider [phone] Reason for Referral * Consultation (Routine) - Specialty Diagnoses / Procedures Referred By Contac t Referred To Contact Nutrition Diagnoses Obesity, unspecified obesity severity, unspecified obesity type Birdie Harrison MD [facility] [address] [place], [place] [id number] [place] [address] Pedi Nutrition [address] [place] [phone] Referral ID Status Reason Start Date Expiration Date V isits Requested Visits Authorized [id number] Continuity of Care 01/14/2016 01/13/2017 1 1 Reason for Visit * Reason Comments Abdominal Pain * Consultation (Routine) - Closed Specialty Diagnoses / Procedures Referred By Contact Referred To Contact Pediatric Gastroenterology Diagnoses R upper quadrant abd pain ? possible fatty liver disease Carley Carbajal MD [address] [place] [address] [place] [address] [facility] Pedi Gastro [address] [place] [phone] Referral ID Status Reason Start Date Expiration Date V isits Requested Visits Authorized [id number] Closed Consult, [facility] 12/14/2015 12/13/2016 1 1 Encounter Details Date Type Department Care Team (Latest Contact Info) Description 01/14/2016 10:00 AM EST Office Visit [place] [address] Birdie Harrison MD Obesity, unspecified obesity severity, unspecified obesity type; Constipation, unspecified constipation type; Overflow diarrhea; Abnormal defecation; Gastroesophageal reflux disease, esophagitis presence not specified Social History Tobacco Use Types Packs/Day Years Used Date Smoking Tobacco: Passive Smo ke Exposure - Never Smoker Comments:mother smokes outsi de Sex and Gender Information Value Date Recorded Sex Assigned at Not on file Gender Identity Not on file Sexual Orientation Not on file documented as of this encounter Last Filed Vital Signs Vital Sign Reading Time Taken Comments Blood Pressure 118/64 01/14/2016 9:59 AM EST Pulse 82 01/14/2016 9:59 AM EST Temperature 36.9 ??C (98.5 ??F) 01/14/2016 9:59 AM ES T Respiratory Rate 12 01/14/2016 9:59 AM EST Oxygen Saturation - - Inhaled Oxygen Concentration - - Weight 90.2 kg (198 lb 12.8 oz) 01/14/2016 9:59 AM EST Height 145 cm (4' 9.09) 01/14/2016 9:59 AM EST Body Mass Index 42.89 01/14/2016 9:59 AM EST Body Mass Index Percentile 100.00% 01/14/2016 9:5 9 AM EST Growth Chart: [facility] (Girls, 2- 20 Years) documented in this encounter Patient Instructions * Patient Instructions* Birdie Harrison MD - 01/14/2016 10:00 AM EST Complete 2 mo course of omeprazole. Wean to 1 tab every other day for 7 days then stop. If dyspeptic symptoms come back. Restart the Prilosec and notify me. Concern for constipation with overflow diarrhea. Recommend bowel clean out followed by daily stool softener regimen. CLEAN OUT REGIMEN On the day of cleanout: Start clean out in the morning hour (9-10 am) . Child should have easy access to bathroom . No major plans for the day. Take 1-2 senna chocolate squares first thing in the morning. Followed by 10 caps full of Miralax (Polyethylene Glycol 3350) in 50 ounces of fluid (mix 1 capful per 4-8 ounces of fluid). Best fluid options are pedialyte, gatorade, apple juice etc. ?? Note: Try to drink the entire amount in 3-4 hours if possible. Take another 1-2 senna chocolate squares around 4pm. MAINTENANCE REGIMEN: Ex-lax: 1 exlax daily for two weeks followed by 1 exlax every other day for next two weeks. Then use 1 twice a week. Of note exlax may give abdominal cramps. Can decrease the dose of exlax to 1/2 or stop it for excess abdominal cramps. Miralax: Start with 1 capfull miralax mixed in 6-8 oz fluid daily. Titrate the dose of miralax to agoal of 1 soft stool daily. The ideal bowel movement is soft but a good size and is formed. Increase vegetables and fruits intake. Increase fluid intake and increase physical activity. Form habit to sit on potty twice daily after meals for about 5 minutes. OF NOTE: It is very important to continue maintenance regimen to decrease risk of getting bowel back up again . documented in this encounter Progress Notes * Birdie Harrison MD - 01/14/2016 10:00 AM EST I saw Felipa Flores 10 y.o. female for outpatient consultation at [facility] at the request of Kirt Mcgill MD Chief Complaint Patient presents with ??? Abdominal Pain HPI: Has been having worse abdominal pain for 6 mo. Used to have abdominal pain on and off before that. Used to get abdominal pain almost daily. Her abdominal pain has been better in the last 1 mo after starting prilosec 20 mg daily. Still on prilosec. Upper belly ache, no known trigger, improved with anti acid medication. No nausea. In November developed vomiting and nausea which lasted for a week . Improved after starting prilosec. At present no belly ache, no nausea, no vomiting. No heartburn. No sour burps. No dysphagia. Stooling: She has on and off hard time pooping. She cant use the bathroom at all sometimes. May go 3-7 days without stooling. Has diarrhea once in a while. Has stool accidents. No blood in stool. Some time shard stool. Not large. Hurts while pooping. Strains while stooling. Energy is good. Appetite is good. Sleeping well on CPAP for apnea. School is going good. Life is ok. Sees therapist once a week for anxiety and depression- diagnosed few yrs ago. Diet: Drinks juice once in a while. Drinks soda once in a while. Denies regular sweet drinks. Occasional breakfast, lunch at school sometimes, eats dinner regularly, 1 snack . Mother thinks her food portions are large. Eats two plated usually. Not seen by nutrition. She has urinary accidents sometimes. Fathers side overweight people. Activity: recently has started basketball. Play practise. ROS: 12 point review of systems negative except as stated above Allergies Allergen Reactions ??? Penicillins Hives Patient Active Problem List Diagnosis Code ??? Breathing problem R06.9 ??? Asthma J45.909 ??? Acanthosis nigricans L83 ??? Exercise counseling Z71.89 ??? Dietary counseling and surveillance Z71.3 ??? Morbid obesity E66.01 ??? BMI, pediatric, 99th percentile or greater for age Z68.54 ??? Dyslipidemia - low HDL, high LDL E78.5 ??? Transaminitis - mild elevation / borderline ALT R74.0 ??? Lyme disease A69.20 ??? 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 Decreased vision H54.7 ??? Hyperopia H52.00 Family History Problem (# of Occurrences) Relation (Name,Age of Onset) Cataracts (1) Paternal Grandmother Diabetes (2) Maternal Grandmother, Paternal Grandmother Schizophrenia (1) Father Negative family history of: Glaucoma, Macular Degeneration, Retinal Detachment, Ulcerative Colitis,Crohn Disease, Celiac Disease, Liver Disease, Thyroid Disease, Autoimmune Disorder Social History Social History ??? Marital status: Single Spouse name: N/A ??? Number of children: N/A ??? Years of education: N/A Occupational History ??? Not on file. Social History Main Topics ??? Smoking status: Passive Smoke Exposure - Never Smoker ??? Smokeless tobacco: Not on file Comment: mother smokes outside ??? Alcohol use Not on file ??? Drug use: Not on file ??? Sexual activity: Not on file Other Topics Concern ??? Not on file Social History Narrative Prior Medical History: : 6# 7+3/4 ounces, term baby born at [facility], no breathing problems or meconium at Immunizations: UTD, usually gets flu but has not received it yet this year Hospitalizations: three admissions, 2 for respiratory 06/17 and 2006 (one for RSV), and 1 for appendicitis. No intubation, no PICU admissions. Surgery: Ruptured appendectomy 12/18 (11 day admission) Family History: Mother: occasional bronchitis, no asthma, + seasonal allergies, no eczema Dad: no history of asthma, + seasonal allergies Paternal side: adult diabetes and cancers Brother (5): healthy Sister (11): shredded cartilage in knees with JRA (Dr. Hernandez and Dr. Bravo, Dr. Wilson), no eczema, allergies, asthma Maternal uncle: epilepsy HX FAMILIAL SHORT STATURE DAD 5'2 MOM 5'1 Social and Environmental History: Lives with her mother, sister and brother in a trailer without a basement. Mother unsure of age of trailer. Heat is propane. No woodstove or fireplace. Mother smokes outside. No one smokes at her father's house. At her mother's, they have a dog who lives inside and is in Felipa's bedroom. No visible mold, problem with roaches, no farm animals. Felipa does have stuffed animals, feather comforterin her room as well as blinds, drapes, hardwood and carpet. Walking some and does gym twice a week but breaths harder. Felipa is in 3rd grade. Likes guidance (writing/jouraling), likes TV, watches for hours a day. 7th grade - winter 2015 Current Outpatient Prescriptions on File Prior to Visit Medication Sig Dispense Refill ??? montelukast (SINGULAIR) 5 mg chewable tablet Take 5 mg by mouth nightly. ??? fluticasone (FLONASE) 50 mcg/actuation nasal spray 1 spray by Each Nare route nightly. ??? fluticasone-salmeterol (ADVAIR HFA) 115-21 mcg/actuation inhaler Inhale 2 puffs into the lungs 2 times daily. 1 Inhaler 12 ??? albuterol-ipratropium (COMBIVENT) 18-103 mcg/actuation inhaler 2 puffs twice daily with Advair and additional dose before exercise 2 Inhaler 4 No current facility-administered medications on file prior to visit. Wt Readings from Last 3 Encounters: 01/14/16 (!) 90.2 kg (198 lb 12.8 oz) (>99 %)* 04/19/12 (!) 47.2 kg (104 lb) (99 %)* 04/06/12 (!) 47.4 kg (104 lb 6.4 oz) (>99 %)* * Growth percentiles are based on CDC 2-20 Years data. Ht Readings from Last 3 Encounters: 01/14/16 145 cm (4' 9.09) (13 %)* 04/19/12 122.5 cm (4' 0.23) (8 %)* 04/06/12 124.5 cm (4' 1) (16 %)* * Growth percentiles are based on CDC 2-20 Years data. Body mass index is 42.89 kg/(m^2). >99 %ile based on CDC 2-20 Years BMI-for-age data using vitals from 01/14/2016. >99 %ile based on CDC 2-20 Years [id number] data using vitals from 01/14/2016. 13 %ile based on CDC 2-20 Years [id number] data using vitals from 01/14/2016. Vitals: 01/14/16 0959 BP: 118/64 Pulse: 82 Resp: 12 Temp: 36.9 ??C (98.5 ??F) Physical Exam: General appearance: Alert, Active, No acute distress, No pallor, No cyanosis, No icterus, overweight HEENT: Normocephalic, atraumatic, No oral sores, No cervical lymphadenopathy CVS: s1 s2 normal, regular rate, rhythm, no murmur RESPI : clear to ascultation b/l, no added sounds ABDOMEN: Soft, Non tender, non distended, no organomegaly noted, BS present , limited exam due to obesity SKIN: No rash EXTREMITY:Normal tone/strength b/l, No clubbing SLEEVE SEPARATOR: No focal neurological deficit GENITAL/PERIANAL INSPECTION: No anal fissures, no skin tags, no fistula A/P: Felipa is here for evaluation of multiple GI symptoms. Physical exam is concerning for obese body habitus. Her dyspeptic symptoms improved with PPI making diagnosis of GERD-likely diagnosis here. Recommend that she complete a two-month course of PPI and wean it , if she redevelops symptom with thewean recommend getting back on daily PPI therapy and notify me. If she is not be able to wean off PPI I might consider getting EGD to evaluate for EOE, H. pylori infections etc. I strongly feel she has constipation with overflow diarrhea. Recommend bowel cleanout with MiraLAX followed by daily MiraLAX and Ex-Lax regimen. Mother reported to me about high potassium in her recent blood work( not sure about the level). She reported it was a difficult blood draw and her blood was squeezed out of her hand, so I believe the hyperkalemia is false positive test here. Her recent abdominal ultrasound , liver function test, lipid screening normal except for mildly elevated triglyceride level. Discussed the risk of obesity, discussed about healthy eating habits, increase in physical activity, cutting down fatty/fried/junk food/sugary drinks. Recommend evaluation by nutrition. Recommend evaluation by urology for urinary accidents . Mother agrees with the plan. Mother to call me with any questions and concerns. Diagnoses and all orders for this visit: Obesity, unspecified obesity severity, unspecified obesity type - Referral to Nutrition Services Constipation, unspecified constipation type CLEAN OUT REGIMEN On the day of cleanout: Start clean out in the morning hour (9-10 am) . Child should have easy access to bathroom . No major plans for the day. Take 1-2 senna chocolate squares first thing in the morning. Followed by 10 caps full of Miralax (Polyethylene Glycol 3350) in 50 ounces of fluid (mix 1 capful per 4-8 ounces of fluid). Best fluid options are pedialyte, gatorade, apple juice etc. ?? Note: Try to drink the entire amount in 3-4 hours if possible. Take another 1-2 senna chocolate squares around 4pm. MAINTENANCE REGIMEN: Ex-lax: 1 exlax daily for two weeks followed by 1 exlax every other day for next two weeks. Then use 1 twice a week. Of note exlax may give abdominal cramps. Can decrease the dose of exlax to 1/2 or stop it for excess abdominal cramps. Miralax: Start with 1 capfull miralax mixed in 6-8 oz fluid daily. Titrate the dose of miralax to agoal of 1 soft stool daily. The ideal bowel movement is soft but a good size and is formed. Increase vegetables and fruits intake. Increase fluid intake and increase physical activity. Form habit to sit on potty twice daily after meals for about 5 minutes. Overflow diarrhea Abnormal defecation Gastroesophageal reflux disease, esophagitis presence not specified Complete 2 mo course of omeprazole. Wean to 1 tab every other day for 7 days then stop. If dyspeptic symptoms come back. Restart the Prilosec and notify me. Other orders - polyethylene glycol (MIRALAX) 17 gram/dose Powder; Take 17 g by mouth daily. - senna (EX-LAX) 15 mg Tablet, Chewable; Take 1 tablet by mouth daily (after breakfast). Thank you for allowing me to participate in the care of Felipa Flores. Please feel free to contact my office at [phone] for further questions and concerns. Sincerely, Birdie Harrison MD documented in this encounter Plan of Treatment Scheduled Referrals Name Type Priority Associated Diagnoses Orde r Schedule Referral to Nutrition Services Outpatient Referral Routine Obesity, unspecified obesity severity, unspecified obesity type Ordered: 01/14/2016 documented as of this encounter Visit Diagnoses Diagnosis Obesity, unspecified obesity severity, unspecified obesity type Constipation, unspecified constipation type Overflow diarrhea Diarrhea Abnormal defecation Other symptoms involving digestive system Gastroesophageal reflux disease, esophagitis presence not specified documented in this encounter Care Teams Senior Trial Attorney Relationship Specialty Start Date End Date Kirt Mcgill MD [address] [place] [address] PCP - General 11/09/11 07/19/16 documented as of this encounter
--- OUTSIDE RECORDS SUMMARY | 2024-03-18 11:31 | XMS_ITS | Encounter Summary ---
Author Organization [facility] [place] [address] Care Team Providers Care Milk Tester Name Role Phone Kirt Mcgill MD Primary Care Provider [phone] Reason for Visit * Reason Comments Eye Problem Patient here for khadijah l due to lyme disease and bells palsy Encounter Details Date Type Department Care Team (Late st Contact Info) Description 10/31/2012 9:15 AM EDT Office [place] [id number] Yareli Graham MD Morbid obesity; Herman's palsy; Blurry vision Discharge Disposition: Home Social History Tobacco Use Types Packs/Day Years Used Date Smoking Tobacco: Passive Smo ke Exposure - Never Smoker Comments:mother smokes outsi de Sex and Gender Information Value Date Recorded Sex Assigned at Not on file Gender Identity Not on file Sexual Orientation Not on file documented as of this encounter Progress Notes * Yareli Graham MD - 10/31/2012 10:01 AM EDT 7 yo girl with past Lyme disease, right Herman's palsy with a normal exam. She has some errors on color testing but no optic nerve pallor or other evidence of inflammation. Unremarkable visual quintero. New MRx was given. Recommend follow up locally or prn any complaints. documented in this encounter Plan of Treatment Not on file documented as of this encounter Procedures Procedure Name Priority Date/Time Associated Diagnosis Comments AUTOMATED VISUAL FIELD - EXTENDED - OU- BOTH EYES Routine 10/31/2012 12:20 PM EDT Blurry vision documented in this encounter Results * AUTOMATED VISUAL FIELD - EXTENDED - OU- BOTH EYES (10/31/2012 12:20 PM EDT) Anatomical Region Laterality Modality Other Narrative 10/31/2012 12:20 PM EDT OS: nonspecific mild patchy peripheral depression 3.9 OD: nonspecific mild patchy peripheral depression 5.4 Procedure Note Yareli Graham MD - 10/31/2012 OS: nonspecific mild patchy peripheral depression 3.9 OD: nonspecific mild patchy peripheral depression 5.4 Yareli Graham MD OPHTHALMOLOGY SERVIC ES ORDERABLES documented in this encounter Visit Diagnoses Diagnosis Morbid obesity Herman's palsy Blurry vision Other specified visual disturbances documented in this encounter Care Teams Milk Tester Relationship Specialty Start Date End Date Kirt Mcgill MD [address] [place] [address] PCP - General 11/09/11 07/19/16 documented as of this encounter
--- OUTSIDE RECORDS SUMMARY | 2024-03-18 11:31 | XMS_ITS | Encounter Summary ---
[place] [address] Care Team Providers Care Supervisor Fishing Name Role Phone Carley Carbajal MD Primary Care Provider [phone] Reason for Visit * Reason Comments Gastroesophageal Reflux * Consultation (Routine) - Closed Specialty Diagnoses / Procedures Referred By Contact Referred To Contact Pediatric Gastroenterology Diagnoses constipation - abd pain - obesity Carley Carbajal MD [address] [place] [address] [place] [address] [facility] [address] [place] [address] Referral ID Status Reason Start Date Expiration Date V isits Requested Visits Authorized [id number] Closed Consult, [facility] 07/20/2016 07/20/2017 1 1 Encounter Details Date Type Department Care Team (Latest Contact Info) Description 09/20/2016 9:00 AM EDT Office Visit [place] [address] Birdie Harrison MD Gastroesophageal reflux disease, esophagitis presence not specified (Primary Dx); Morbid obesity with BMI of 45.0-49.9, adult Social History Tobacco Use Types Packs/Day Years [...] Sign Reading Time Taken Comments Blood Pressure 126/59 09/20/2016 9:02 AM EDT Pulse 92 09/20/2016 9:02 AM EDT Temperature 36.9 ??C (98.4 ??F) 09/20/2016 9:02 AM ED T Respiratory Rate - - Oxygen Saturation - - Inhaled Oxygen Concentration - - Weight 104.9 kg (231 lb 3.2 oz) 09/20/2016 9:02 AM EDT Height 147 cm (4' 9.87) 09/20/2016 9:02 AM EDT Head Circumference 57.5 cm 09/20/2016 9:02 AM EDT Body Mass Index 48.53 09/20/2016 9:02 AM EDT Body Mass Index Percentile 100.00% 09/20/2016 9:0 2 AM EDT Growth Chart: [facility] (Girls, 2- 20 Years) documented in this encounter Progress Notes * Birdie Harrison MD - 09/20/2016 9:00 AM EDT I saw Felipa Flores 10 y.o. female for outpatient consultation at [facility] at the request of Carley Carbajal MD Chief Complaint Patient presents with ??? Gastroesophageal Reflux HPI: Felipa is a 10yrs old female here for follow up evaluation of GERD and obesity . Pt is here with her mother. Since last clinic visit: Done bowel clean out x 2. It helped a bit. Tried weaning off prilosec, redeveloped GERD like symptoms within 4 days of stopping PPI. Has ongoing GERD like symptoms for last 3-4 month. Upper belly in location, achy nature of pain , no radiation , constant, nothing makes it worse, prilosec makes it better, no nocturnal Pain. Associated symptoms: No heartburn, no sour burps, no nausea, no vomiting, no dysphagia, no dysuria. Poops daily. Soft . No straining. No diarrhea. No rectal bleeding. Gained 25 to 30 lbs in the last 6 mo. No oral sores, No skin rash, no joint pain. No bloating./gassy. Energy is not great . Hard time falling asleep. Switched Prozac to night time to see if that helps .on CPAP . Mood is so so.Appetite is on and off. School was ok. She is sweaty. She shakes ( mother worried if she has diabetes) . Denies increased urinary frequency. Black patch at back of her neck. Restarted prilosec 2-3 weeks ago, symptoms improved. Diet: 3 meals, food choices: , portions - eats large peortion mom feels. Soda drinsk occasional juice rarely. Water. No physical activity. u ROS: 12 point review of systems negative [...] 6# 7+3/4 ounces, term baby born at [facility], no breathing problems or meconium at Immunizations: [...] to Visit Medication Sig Dispense Refill ??? FLUoxetine (PROZAC) 20 mg Tablet Daily ??? loratadine (CLARITIN) 10 mg Tablet Daily ??? Selenium Sulfide 2.25 % Shampoo twice a week ??? omeprazole (PRILOSEC) 20 mg Capsule, Delayed Release(E.C.) Take 20 mg by mouth daily. ??? polyethylene glycol (MIRALAX) 17 gram Powder in Packet Take 17 g by mouth daily. ??? polyethylene glycol (MIRALAX) 17 gram/dose Powder Take 17 g by mouth daily. 255 g 6 ??? albuterol-ipratropium (COMBIVENT) 18-103 mcg/actuation inhaler 2 puffs twice daily with Advair and additional dose before exercise 2 Inhaler 4 ??? montelukast (SINGULAIR) 5 mg chewable tablet Take 5 mg by mouth nightly. ??? fluticasone (FLONASE) 50 mcg/actuation nasal spray 1 spray by Each Nare route nightly. ??? fluticasone-salmeterol (ADVAIR HFA) 115-21 mcg/actuation inhaler Inhale 2 puffs into the lungs 2 times daily. 1 Inhaler 12 ??? senna (EX-LAX) 15 mg Tablet, Chewable Take 1 tablet by mouth daily (after breakfast). (Patient not taking: Reported on 09/20/2016) 30 tablet 3 No current facility-administered medications on file prior to visit. Wt Readings from Last 3 Encounters: 09/20/16 (!) 104.5 kg (230 lb 4.3 oz) (>99 %)* 09/20/16 (!) 104.9 kg (231 lb 3.2 oz) (>99 %)* 01/14/16 (!) 90.2 kg (198 lb 12.8 oz) (>99 %)* * Growth percentiles are based on CDC 2-20 Years data. Ht Readings from Last 3 Encounters: 09/20/16 148.5 cm (4' 10.47) (11 %)* 09/20/16 147 cm (4' 9.87) (8 %)* 01/14/16 145 cm (4' 9.09) (13 %)* * Growth percentiles are based on CDC 2-20 Years data. Body mass index is 48.53 kg/(m^2). >99 %ile based on CDC 2-20 Years BMI-for-age data using vitals from 09/20/2016. >99 %ile based on CDC 2-20 Years [id number] data using vitals from 09/20/2016. 8 %ile based on CDC 2-20 Years [id number] data using vitals from 09/20/2016. Vitals: 09/20/16 0902 BP: 126/59 Pulse: 92 Temp: 36.9 ??C (98.4 ??F) Physical Exam: General appearance: Alert, Active, No acute distress, No pallor, No cyanosis, No icterus, obese body habitus. HEENT: Normocephalic, atraumatic, No oral sores, No cervical lymphadenopathy, acanthosis nigricans CVS: s1 s2 normal, regular rate, rhythm, no murmur RESPI : clear to ascultation b/l, no added sounds ABDOMEN: Soft, Non tender, distended, no organomegaly noted, BS present , limited due to abdominal fat pad. SKIN: No rash EXTREMITY:Normal tone/strength b/l, No clubbing FLOOR MANAGER: No focal neurological deficit GENITAL/PERIANAL INSPECTION:deferred A/P: Felipa is a 10 years old female here for follow-up evaluation of obesity and GERD. Physical exam here today's reveals her weight and BMI above 99th percentile. Her GERD-like symptoms is probably in part contributed by increased intra- abdominal pressure secondary to truncal obesity. Since her GERD-like symptoms recurred with stopping PPI, I would like to getEGD with biopsy to evaluate for eosinophilic esophagitis, hiatal hernia, infection etc. Meanwhile, I had in-depth discussion about Obesity and it's complications which contained but were not limited to increase risk of metabolic syndrome, joint problem, hypertension, diabetes, liver failure requiring liver transplant etc. I counseled the family on healthy eating habits, recommend avoiding daily juice/sugary drinks/soda intake, increase vegetables and fruits intake, increase physicalactivity etc. I recommended follow up with weight and wellness program to work on her diet and physical activity. She is awaiting nutrition evaluation here today. Gastroesophageal reflux disease, esophagitis presence not specified - UPPER GI ENDOSCOPY - CRP, acute inflammation; Future - TSH; Future - Hepatic Function Panel; Future - Sedimentation rate; Future - Glucose, random; Future - Hemoglobin A1c; Future - Lipid Panel; Future - Gamma GT; Future - Urinalysis without microscopic; Future - Basic Metabolic Panel (non-fasting); Future Morbid obesity with BMI of 45.0-49.9, adult Thank you for allowing me to participate in the care of Felipa Flores. Please feel free to contact my office at [phone] for further questions and concerns. Sincerely, Birdie Harrison MD documented in this encounter Plan of Treatment Scheduled Orders Name Type Priority Associated Diagnoses Orde r Schedule UPPER GI ENDOSCOPY Procedures Routine Gastroesophageal reflux disease, esophagitis presence not specified Ordered: 09/20/2016 documented as of this encounter Visit Diagnoses Diagnosis Gastroesophageal reflux disease, esophagitis presence not specified- Primary Morbid obesity with BMI of 45.0-49.9, adult Morbid obesity documented in this encounter Care Teams Supervisor Fishing Relationship Specialty Start Date End Date Carley Carbajal MD [address] [place] [address] PCP - General Pediatrics 07/20/16 12/16/21 documented as of this encounter
--- OUTSIDE RECORDS SUMMARY | 2024-03-18 11:31 | XMS_ITS | Encounter Summary ---
Author Organization [facility] [place] [address] Care Team Providers Care Third Officer Name Role Phone Carley Carbajal MD Primary Care Provider Reason for Visit * Reason Onset Date Comments Pre Procedure Call 10/21/2016 Encounter Details Date Type Department Care Team (Late st Contact Info) Description 10/21/2016 Telephone [place] [address] Birdie Harrison MD Pre Procedure Call Social History Tobacco Use Types Packs/Day Years Used Date Smoking Tobacco: Passive Smo ke Exposure - Never Smoker Smokeless Tobacco: Never Comments:mother smokes outsi de Sex and Gender Information Value Date Recorded Sex Assigned at Not on file Gender Identity Not on file Sexual Orientation Not on file documented as of this encounter Miscellaneous Notes * Telephone Encounter - Anum Graham - 10/21/2016 2:25 PM EDT Received a call from momSonali, regarding EGD 10/24/16. Gave arrival time 9am for 945am EGD. Gave prep, direction to same day and call back number for questions. Mom expressed understanding. documented in this encounter Plan of Treatment Not on file documented as of this encounter Visit Diagnoses Not on filedocumented in this encounter Care Teams Third Officer Relationship Specialty Start Date End Date Carley Carbajal MD [address] [place], [place] [address] [address] PCP - General Pediatrics 07/20/16 12/16/21 documented as of this encounter
--- OUTSIDE RECORDS SUMMARY | 2024-03-18 11:31 | XMS_ITS | Encounter Summary ---
Author Organization [facility] [place] [address] Care Team Providers Care [place] Tribunal Member Name Role Phone Cameron Brooke MD Primary Care Provider [phone] Reason for Visit * Reason Onset Date Comments Referral 06/18/2015 Encounter Details Date Type Department Care Team (Late st Contact Info) Description 06/18/2015 Telephone Weight and Wellness at [address] [phone] Cris Dawson MD [facility] [place] [address] Referral Social History Tobacco Use Types Packs/Day Years Used Date Smoking Tobacco: Passive Smo ke Exposure - Never Smoker Comments:mother smokes outsi de Sex and Gender Information Value Date Recorded Sex Assigned at Not on file Gender Identity Not on file Sexual Orientation Not on file documented as of this encounter Miscellaneous Notes * Telephone Encounter - Cris Dawson MD - 06/20/2015 4:20 PM EDT [facility] Referral Note Name: Felipa Flores MR: [id number] : 2005 Age: 9 y.o. 8 m.o. PCP:CAMERON BROOKE MD HEADHUNTER:None Note to scheduling: [ x ] scanned labs available for review DiIAGNOSIS / CONCERN: SCHEDULING- PROVIDER: [ ] Hyperlipidemia without elevated BMI: [ ] Irena [ ] Ray [ ] Either [x ] Elevated BMI +/- comorbidities: [ ] Irena [ ] Samir [ x ] Either Additional information: * Telephone Encounter - Bart Skinner - 06/18/2015 1:20 PM EDT Cris to review documented in this encounter Plan of Treatment Not on file documented as of this encounter Visit Diagnoses Not on filedocumented in this encounter Care Teams [place] Tribunal Member Relationship Specialty Start Date End Date Cameron Brooke MD [address] [place] [address] PCP - General 11/09/11 07/19/16 documented as of this encounter
--- OUTSIDE RECORDS SUMMARY | 2024-03-18 11:31 | XMS_ITS | Encounter Summary ---
Author Organization [facility] Address [facility] [place] [address] Care Team Providers Care Line Supervisor Name Role Phone Carley Carbajal MD Primary Care Provider [phone] Reason for Visit * Consultation (Routine) - Closed Specialty Diagnoses / Procedures Referred By Contac t Referred To Contact Weight and Wellness Diagnoses constipation - abd pain - obesity Carley Carbajal MD [address] [place] [address] [place] [address] [facility] [address] [place] [address] Referral ID Status Reason Start Date Expiration Date V isits Requested Visits Authorized [id number] Closed Consult, Test & Treat Connection Center 07/20/2016 07/20/2017 1 1 Encounter Details Date Type Department Care Team (Late st Contact Info) Description 09/20/2016 9:45 AM EDT Office Visit Weight and Wellness at [facility] [address] [place] [address] Cris Dawson MD [facility] [place] [address] Lyndsey Perry, RUDDY Obesity due to excess calories with serious comorbidity and body mass index (BMI) greater than 99th percentile for age in pediatric patient; Exercise counseling; Dietary counseling and surveillance; Acanthosis nigricans; Insulin resistance; Dyslipidemia - low HDL, high LDL; Transaminitis - mild elevation / borderline ALT Social History Tobacco Use Types Packs/Day Years [...] - Inhaled Oxygen Concentration - - Weight 104.5 kg (230 lb 4.3 oz) 017 10:21 AM EDT Height 148.5 cm (4' 10.47) 09/20/2016 10:21 AM EDT Body Mass Index 47.36 09/20/2016 10:21 AM EDT Body Mass Index Percentile 100.00% 09/20 10:21 AM EDT Growth Chart: [facility] (Girls, 2- 20 Years) documented in this encounter Patient Instructions * Patient Instructions* Jeovany Lo RN - 09/20/2016 9:45 AM EDT [facility] Program Thank you for participating in the [facility] Program. The goal of the [facility] clinic is to help children and their families to attain a healthy weight through healthy eating and regular exercise. We will work to treat any medical issues identified for your child. General goals to work on as a family: Aim for 5210 and My Plate (below) recommendations Pick several areas to work on - start small and work up to your final goals Specific goals set today: Media / Activity: Aim for walking 20 minutes each day -this is a great start Check out the new family media planning tool at the [employer] https://healthychildren.org/Chilean/media/pages/default.aspx Nutrition Goals set Today: 1. Replace soda and gatorade with propel water 2. Include fruit and vegetable at each meal 3. Cut down sugary cereal Other issues addressed today: Feliap Flores is at risk for complications of elevated BMI including diabetes, fatty liver andmetabolic syndrome.The primarily treatment approach is lifestyle modification to optimize diet and physical activity. We have recommended participation in our intensive lifestyle program along with ongoing medical management. Laboratories have been ordered: No orders of the defined types were placed in this encounter. Measurements taken today: Vitals: 09/20/16 1021 Weight: (!) 104.5 kg (230 lb 4.3 oz) Height: 148.5 cm (4' 10.47) >99 %ile based on CDC 2-20 Years BMI-for-age data using vitals from 09/20/2016. BP Readings from Last 3 Encounters: 09/20/16 126/59 01/14/16 118/64 04/19/12 110/72 No blood pressure reading on file for this encounter. Thank you for allowing us to participate in your child's care. We look forward to seeing you and Felipa at our next visit. Cris Dawson MD MPH Sav Osborn MD Co-Directors, [facility] Obesity Medicine Certified Lyndsey Doshi RD Registered Dietitian Jeovany Lo RN Registered Nurse documented in this encounter Progress Notes * Cris Dawson MD - 09/20/2016 9:45 AM EDT [facility] Visit Patient Name: Felipa Flores Date of : 2005 Age: 10 y[address]o. [address] Carley Carbajal MD / None Thank you for referring Felipa Flores to the [facility] / consultation regarding obesity. HEALTH HISTORY Current Outpatient Prescriptions on File Prior to [...] by mouth daily. 255 g 6 ??? senna (EX-LAX) 15 mg Tablet, Chewable Take 1 tablet by mouth daily (after breakfast). (Patient not taking: Reported on 09/20/2016) 30 tablet 3 ??? albuterol-ipratropium (COMBIVENT) 18-103 mcg/actuation inhaler 2 [...] lungs 2 times daily. 1 Inhaler 12 No current facility-administered medications on file prior to visit. Allergies Allergen Reactions ??? Penicillins Hives Past Medical History: Diagnosis Date ??? Asthma [...] H54.7 ??? Hyperopia H52.00 Family History Problem Relation Age of Onset [...] Neg Hx ??? Autoimmune Disorder Neg Hx see also Social history field Social History Social History Narrative Prior Medical History: : 6# 7+3/4 ounces, term baby born at [facility], no breathing problems or meconium at [...] likes TV, watches for hours a day. [facility]: Social HX 09/20/2016 Menses (what year) 10 Primary household Mother, Siblings Parents' marital status Other Custody of patient Mother Days missed in school year 8 PREVIOUS LABS: Lab Results Component Value Date CHLPL 176 (External Lab) 03/21/2012 CHLPL 206 (H) 01/12/2011 Lab Results Component Value Date HDL 29 (EXTERNAL/ABN) 03/21/2012 HDL 45 01/12/2011 Lab Results Component Value Date LDLCHOL 135 (EXTERNAL/ABN) 03/21/2012 LDLCHOL 148 (H) 01/12/2011 Lab Results Component Value Date TRIG 63 (External Lab) 03/21/2012 TRIG 109 01/12/2011 No results found for: CHOLHDL Lab Results Component Value Date HA1C 5.5 12/15/2011 Lab Results Component Value Date GLUCFASTING 87 (External Lab) 03/21/2012 Lab Results Component Value Date ALT 32 (EXTERNAL/ABN) 03/21/2012 Lab Results Component Value Date TSH 1.03 01/12/2011 CHIEF COMPLAINT: Health habits counseling for diet, exercise, weight management No chief complaint on file. WWC: Concerns and Goals (Parent and Teen) 09/20/2016 Parent Concerns My child's weight, Risk for future medical problems related to excess weight, My child's physically active level, My child's diet, My child's self-esteem Parent Goals Help to achieve a healthy weight, Identify an underlying cause for weight gain, Decrease risk of developing problems related to excess weight, Improve health, Improve diet, Improve activity level, Improve self-esteem INTERVAL HISTORY / PROGRESS TOWARD GOALS: [x] I reviewed past / interim records including notes, labs, and growth chart as provided from referring provider and discussed with family Questionaires were completed by [ ] child [ x ] parent and were reviewed Mom is very concerned about Felipa's excessive weight gain and hre lack of activity Eats a lot for a day or 2 then skips meals Felipa is concerned that she is being teased / bullied because of her weight. Makes her mad. In onProzac for anxiety and has counseling in place WWC: Recent Changes/Areas we can help 09/20/2016 Parent: Recent changes Eating more fruits, Eating more vegetables, Eating less take out or fast food, Eating less sweet snacks, Eating less sugary snacks Parent: Recent changes Cutting out soda or other sugary drinks, Eating more mindfully, Cooking moreat home/learning to cook Diet: ?? see diet recall - high in refined sugar and processed foods ?? Goal set with RD to cut sweet drinks and add more fruits and veggies Media: ?? Lots of media time in the household. No current limits. ?? Discussed that all would benefit from more actvity / walking Exercise: ?? 16 yo sister and brther aren't active - her brother plays a lot of video games ?? Felipa used to walk with GM and Aunt, and track steps ?? We discussed doing this again but Felipa says nobody supports her - her mo says she will walk with her, that it would be good for her too ?? Sister has a fit bit which Felipa could borrow REVIEW OF SYSTEMS: see above HPI for additional pertinent +/- findings Constitutional: NL energy. No daytime tiredness. + obesity HEENT: No changes in vision. No ear pain, rhinorrhea / congestion, sore throat. CV: No chest pain or discomfort, no palpitations .No excessive exertional dyspnea/SOB. No unexplained syncope, hx CHD or arrythmia. RESP: + asthma with wheezing and SOB - flares with exercise / cold / heat -sees pulmonology in [facility] + snoring with sleep apnea, on CPAP. GI:. + hx constipation, abdominal pain, YENIFER - just seen in GI and endoscopy planned : No dysuria, hematuria, urinary frequency or urgency. Musculoskeletal: No joint pain or swelling. No hx fx or sprain, neuromuscular condition Integumentary: No rash or bruising. Psychiatric: + hx of anxiety, depression Neurological: + headaches over few months, better this past week - felt to be due to Prozac. No hx concussion Endocrine: + cold intolerance. No dry skin, dry/brittle hair, constipation. No excessive thirst. + body odor Puberty/Menses: dysmennorhea Sleep: + trouble getting to sleep Missed school days: VITAL SIGNS: Vitals: 09/20/16 1021 Weight: (!) 104.5 kg (230 lb 4.3 oz) Height: 148.5 cm (4' 10.47) Body mass index is 47.36 kg/(m^2). >99 %ile based on CDC 2-20 Years BMI-for-age data using vitals from 09/20/2016. Last 5 weight values: @WEIGHTCHANGE@ Wt Readings from Last 5 Encounters: 09/20/16 (!) 104.5 kg (230 lb 4.3 oz) (>99 %)* 09/20/16 (!) 104.9 kg (231 lb 3.2 oz) (>99 %)* 01/14/16 (!) 90.2 kg (198 lb 12.8 oz) (>99 %)* 04/19/12 (!) 47.2 kg (104 lb) (99 %)* 04/06/12 (!) 47.4 kg (104 lb 6.4 oz) (>99 %)* * Growth percentiles are based on CDC 2-20 Years data. BP: -- Last 3 BP values: BP Readings from Last 3 Encounters: 09/20/16 126/59 01/14/16 118/64 04/19/12 110/72 BP norms for age and gender No blood pressure reading on file for this encounter. PHYSICAL EXAM: Gen: Alert and active, NAD. + central obesity Skin: Warm, pink, no rashes, no striae, no acanthosis neck, axillae, knuckles. No striae Head/Neck: NC/AT, neck supple, no LAD, no buffalo hump Eyes: PERRLA, clear conjunctiva ENT: MMM, OP clear, TMs wnl, no rhinnorhea or congestion CV: RRR, NL S1S2, no murmur Resp: CTAB, no WOB, no wheezes/crackles Abd: +BS, soft, NT/ND, no HSM/masses appreciated Genitalia: deferred Neuro: Alert and oriented. application chemist intact, fundi crisp Extremities: No pain, normal range of motion Psych: Pleasant but only moderately engaged SUMMARY OF VISIT AND RECOMMENDATIONS: Medical issues and plan: 1. Obesity due to excess calories with serious comorbidity and body mass index (BMI) greater than 99th percentile for age in pediatric patient 2. Exercise counseling 3. Dietary counseling and surveillance 4. Acanthosis nigricans 5. Insulin resistance 6. Dyslipidemia - low HDL, high LDL 7. Transaminitis - mild elevation / borderline ALT Obesity: 10 y.o. 11 m.o. with BMI that is 192% above 95th% / Adult Class 3 putting Felipa at serious risk of metabolic and cardiovascular disease especially given inactivity and diet high in refinedcarbohydrates. Weight gain is most c/w energy imbalance. Hx and exam are less c/w endocrine or monog enic/syndromic causes of obesity - however we will continue to explore ongoing etiologies especially if balanced diet does not result in lowering BMI. Felipa and her mother were re-introduced to theprogram and a detailed medical, diet and activity review was completed. Initial goals were set for changes in health habits (see below) as was a plan for evaluation and treatment of obesity related co-morbidities. Felipa is at high risk of developing Metabolic Syndrome as defined by the [employer] (abdominal obesity, low HDL-C, elevated TG,evidence of insulin resistance and hypertension) - labs in 2013 already showed elevated ALT and LDL and her acanthosis indicates insulin resitance We did discuss that many co-morbidities of obesity are potentially reversible with improvement in life style: making better food choices, portion control, increasing activity time and intensity. Labs were already ordered today by GI and we will follow these as well. I reviewed [employer] and ShareHowsplate.gov healthy plate and choose my plate handouts - discussed overall recommendations for healthy food choices with the family as well as metabolic implications of diet and activity choices Felipa was seen by our corporate specialist, Heidi Doshi RD (see attached note) Plan is to shift energy balance through changes in diet and activity per AAP / USPSTF lifestyle modification recommendations to promote healthy weight and lifestyle change Program plan made in conjunction with patient and family: ?? Intensive lifestyle program: Dr. Dawson / Irena in 1 month, then every 2 months with team visits monthly ?? POWER: not eligible - previously in Intensive Lifestyle Program: Activate POWER Registry: Not enrolled/approached ?? Please see After Visit Summary for goals set today ?? Fasting Labs ordered to assess co-morbidities including diabetes, dyslipidemia, vit D deficiency, NAFLD: Labs ordered today: No orders of the defined types were placed in this encounter. Labs ordered today by GI were appropriate to this visit as well I spent a total of [60] minutes with the patient [50] minutes of which was which was spent in [id number] discussion/counseling re obesity, nutrition and activity as well as obesity related co-morbidities * Lyndsey Perry RD - 09/20/2016 9:45 AM EDT [facility] Nutrition Note Assessment/Nutrition Diagnosis: Pt at nutritional risk r/t excessive caloric intake and sub optimalphysical activity as evidenced by BMI and diet recall Height: Weight: >99 %ile based on CDC 2-20 Years BMI-for-age data using [employer] from 09/20/2016. No flowsheet data found. Dietary Recall: Breakfast: Cereal (Fruit Loops) with whole milk AM Snack: none Lunch: Pasta salad (malagasy dressing, cheese, pepperoni and pasta) After School Snack: none Dinner: Eggs, sausage, on montenegrin muffin PM Snack: cotton candy Beverages: Water, 1 can soda, gatorade Initial Nutrition Topics: 1. Decreasing Sugar Sweetened Beverages- limit sweet drinks / choose water instead. Whole fruit is a better choice than fruit juice 2. Increase Fruits and Vegetables- Include fruits and veggies at each meal - a superintendent container terminal goal wouldbe filling half your plate with veggies for lunch and dinner. 3. Gatekeeping - Limit pre-packaged foods and fast foods brought into the home Previous Nutrition Goals: Nutrition Goals set Today: 1. Replace soda and gatorade with propel water 2. Include fruit and vegetable at each meal 3. Cut down sugary cereal Monitor/Evaluate: Will follow up in one month for nutrition education on: Class Topic Building a Healthy Meal Pt will aim for weight maintenance/loss for: 1-2 pounds per week Will review goals and barriers/success for diet and lifestyle change Thank you Lyndsey Perry, MS RD LD 30 minutes were spent in face to face contact with this patient today documented in this encounter Plan of Treatment Not on file documented as of this encounter Visit Diagnoses Diagnosis Obesity due to excess calories with serious comorbidity and body mass index (BMI) greater than 99th percentile for age in pediatric patient Exercise counseling Dietary counseling and surveillance Dietary surveillance and counseling Acanthosis nigricans Acquired acanthosis nigricans Insulin resistance Dysmetabolic Syndrome X Dyslipidemia - low HDL, high LDL Other and unspecified hyperlipidemia Transaminitis - mild elevation / borderline ALT Nonspecific elevation of levels of transaminase or lactic acid dehydrogenase (LDH) documented in this encounter Care Teams Line Supervisor Relationship Specialty Start Date End Date Carley Carbajal MD [address] [place] [address] [place] [address] PCP - General Pediatrics 07/20/16 12/16/21 documented as of this encounter
--- OUTSIDE RECORDS SUMMARY | 2024-03-18 11:31 | XMS_ITS | Encounter Summary ---
Author Organization [facility] [place] [address] Care Team Providers Care Estate And Trust Tax Principal Name Role Phone Kirt Mcgill MD Primary Care Provider [phone] Reason for Visit * Reason Comments Eye Problem Hx of Lyme Dx and Be lls Palsy on the OS Encounter Details Date Type Department Care Team (Late st Contact Info) Description 10/19/2012 10:15 AM EDT Office [place] [address] Marck Jerez MD [facility] [address] [place] [address] Lyme disease (Primary Dx); Herman's palsy; Decreased vision Discharge Disposition: Home Social History Tobacco Use Types Packs/Day Years Used Date Smoking Tobacco: Passive Smo ke Exposure - Never Smoker Comments:mother smokes outsi de Sex and Gender Information Value Date Recorded Sex Assigned at Not on file Gender Identity Not on file Sexual Orientation Not on file documented as of this encounter Progress Notes * Marck Jerez MD - 10/19/2012 11:18 AM EDT Asked by dr wang to eval pt . Recent lyme dz and facial paraylysis (mom had photo) and now bcva is not back to baseline. i dont' see anything specific on exam to explain vision decrease. Dr wang did OCT eval that was wnl by his note. i did not appreciate any nerve edema. Pt 's mom thoughtthey were seeing dr natarajan. i will arrange a recheck with dr natarajan in 1-2 weeks and we can get visual quintero done then as well as color recheck and further neuro op work up. The bells palsy is resolved and there is not exposure OD documented in this encounter Plan of Treatment Not on file documented as of this encounter Visit Diagnoses Diagnosis Lyme disease- Primary Herman's palsy Decreased vision Unspecified visual loss documented in this encounter Care Teams Estate And Trust Tax Principal Relationship Specialty Start Date End Date Kirt Mcgill MD [address] [place] [address] PCP - General 11/09/11 07/19/16 documented as of this encounter
--- OUTSIDE RECORDS SUMMARY | 2024-03-18 11:32 | XMS_ITS | Referral Summary ---
Author Organization [facility] Address [address] [place] [address] Care Team Providers Care Crt Name Role Phone Unavailable Primary Care Provider Unavailabl e Social History Tobacco Use Types Packs/Day Years Used Date Smoking Tobacco: Never Assessed Comments Unknown Sex and Gender Information Value Date Recorded Sex Assigned at Not on file Legal Sex Female 12:16 EDT Gender Identity Not on file Sexual Orientation Not on file Plan of Treatment Not on file
--- OUTSIDE RECORDS SUMMARY | 2024-03-18 11:32 | XMS_ITS | Encounter Summary ---
Author Organization [facility] Address [facility] [place] [address] Care Team Providers Care Plant Scientist Name Role Phone Roscoe Mcgill MD Primary Care Provider [phone] Reason for Visit * Reason Comments Obesity F/U Encounter Details Date Type Department Care Team (Late st Contact Info) Description 04/19/2012 10:00 AM EST Follow-Up Pediatrics at [address] [id number] Cris Dawson MD [facility] [place] [address] Breathing problem (Primary Dx); Asthma; Acanthosis nigricans; Exercise counseling; Dietary counseling and surveillance; Morbid obesity; BMI, pediatric, 99th percentile or greater for age; Dyslipidemia; Transaminitis Discharge Disposition: Home Social History Tobacco Use [...] Sign Reading Time Taken Comments Blood Pressure 110/72 04/19/2012 10:42 AM EST Pulse - - Temperature - - Respiratory Rate - - Oxygen Saturation - - Inhaled Oxygen Concentration - - Weight 47.2 kg (104 lb) 04/19/2012 10:42 AM EST Height 122.5 cm (4' 0.23) 04/19/2012 10:[address] Body Mass Index 31.44 04/19/2012 10:42 AM EST Body Mass Index Percentile 99.95% 04/19/2012 10: 42 AM EST Growth Chart: CDC (Girls, 2- 20 Years) documented in this encounter Patient Instructions * Patient Instructions* Cris Dawson MD - 04/19/2012 4:56 PM EST [facility] Thank you for participating in the [facility]. The goal of the [facility] clinic is to help children and their families to attain a health weight through healthy eating and regular exercise. We will work to treat any medical issues identified for your child. General goals to work on as a family: Diet: 1. Switch to skim / non-fat milk, limit sweet drinks / choose water instead. Whole fruit is a better choice than fruit juice 2. Watch portions - try to stick to 3 meals with single portions, and 2 small healthy snacks (fruit, veggies, yogurt rather than packaged snack foods) 3. Include fruits and veggies at each meal - a residential goal would be filling half your plate withveggies for lunch and dinner. 4. Limit carbohydrates (starches) to half of your daily intake and to choose healthy ones with whole grains 5. Choose healthy fats - like olive or canola oil, nuts and fish (see hand out) 5. Pick limited treat times for those things you really like but don't want to be part of your regular diet - like popcorn with butter after dinner or a dessert night Acitvity: 1. Identify fun activity / exercise options - start with an easy goal and then work up to 60 minutes daily Media: 2. Limit all media (TV, computer, video games, movie, texting, facebook) to 1-2 hours a day. Make media time active if possible ([employer]) Pick several areas to work on - start small and work up to your final goals Specific goals set today: Watch portions, cont to work on balanced diet Other issues addressed today: 1. Need to better assess diet and intake. Please complete 3 day diet recall prior to next visit 2. Some local counseling may help you and Saphire with parenting around eating behavior and with Saphire's frustration at limits. I will help to identify a provider and get back to you 3. Please follow up as planned for sleep study Laboratories have been ordered: No orders of the defined types were placed in this encounter. Measurements taken today: Immunization History Administered Date(s) Administered ??? Influenza PF, Split 11/10/2011 Filed Vitals: 04/19/12 1042 BP: 110/72 Height: 122.5 cm (4' 0.23) Weight: 47.174 kg (104 lb) Body mass index is 31.44 kg/(m^2). 99.61%ile based on CDC 2-20 Years BMI-for-age data. 90.1% systolic and 90.3% diastolic of BP percentile by age, sex, and height. 114/76 is approximately the 95th BP percentile reading. BP: (110)/(72) BP Readings from Last 3 Encounters: 04/19/12 110/72 04/06/12 108/64 12/15/11 112/76 90.1% systolic and 90.3% diastolic of BP percentile by age, sex, and height. 114/76 is approximately the 95th BP percentile reading. Thank you for allowing me to participate in your pita care. I look forward to seeing you and Sweetie at our next visit. Cris Dawson MD MPH Co-Director, [facility] documented in this encounter Progress Notes * Heidi Gunn I, LD - 04/19/2012 4:[address] [facility] Nutrition Note I met with Sweetie to discuss diet and nutrition today. It was very difficult to get a good understanding of dietary intake. I think it would be very helpful for them to do a 3 day food journal to get a clearer picture so that specific changes can be addressed and goals can be set if we plan to roscoe any progress. Jazlyn and her mom are starting to have some battles over food and our goal is to help make these changes manageable. Sweetie's mom has reached out to a community assistant manager trainee and I am happy to communicate with her so that we can set up a clear, solid plan. Nutrition Goals Reviewed: 1) Increase Fruits and Vegetables 2) Gatekeeping Hints for meeting goals: 1. Include fruits and veggies at each meal - use them as crunchy snacks after school, send her to schoolwith veggie sticks. 2. Mtom to start reading nutrition facts labels - sugary cereals and yogurt covered granola bars are high carbohydrate choices and there are nutritional some better options. Plan: 1) [facility] Binder to be provided at next visit to help with healthy alternative options to current choices. 2) Will anticipate call from assistant manager trainee to help create continuity. Thank you, Heidi Gunn MS RD LD * Cris Dawson MD - 04/19/2012 10:[address] [facility] Visit Date: Sweetie Flores 2005 6 y.o. 6 m.o. None Roscoe Mcgill MD Dr Price, Mark J, MD / None Sweetie Flores was seen in follow up today in the [facility]'s [facility]. Please see summary of visit and recommendations as below Dr. Samir ROJAS, MPH SUMMARY OF VISIT AND RECOMMENDATIONS: Obese 6 y.o. 6 m.o. with BMI% 99.61%ile based on CDC 2-20 Years BMI-for-age data.with acanthosis nigricans concerning for early insulin resistance as well as hyperlipidemia putting her at significantrisk for diabetes, CV disease and metabolic syndrome. We will cont to work on diet, exercise and healthy weight to address this risk for diabetes. It was difficult to assess progress today as Sweetie is in multiple households and some new stressors were identified that may be taking priority over diet and exercise changes. Mom was more concerned about new diagnosis of bipolar is Sweetie's father and her hx of depression and how this might impact Sweetie who has been having some crying and outbursts when limits are set I will help mom to identify local counseling sources for the family. Release signed. I will talk with school and call mom with options. Other issues: Asthma with recent admit, stable now. Hx mouth breathing and snoring concerning for possible MONSE - has referral in place for sleep lab. May need ENT referral. [facility] I spent a total of 30 minutes with the patient over 50% of which was which was spent in [id number] discussion/counseling re obesity, nutrition and activity HEALTH HISTORY Current Outpatient Prescriptions on File Prior to Visit Medication Sig Dispense Refill ??? albuterol-ipratropium (COMBIVENT) 18-103 mcg/actuation inhaler 2 [...] lungs 2 times daily. 1 Inhaler 12 Allergies Allergen Reactions ??? Penicillins CIS - Hives No past medical history on file. Patient Active Problem List Diagnoses ??? Dyslipidemia ??? Transaminitis Mild elevation ALT concerning for early NAFLD ??? Acanthosis nigricans ??? Exercise counseling ??? Dietary counseling and surveillance ??? Morbid obesity [facility]: joined BMI: >99th% Co-morbidities: Asthma, hypercholesterolemia Subspecialty care: Pulmonology Labs: Results for SWEETIE FLORES ( ) as of 03/07/2012 16:59 Ref. Range 01/12/2011 00:00 11/09/2011 11:32 12/15/2011 12:18 12/15/2011 12:26 POC Glucose Latest Range: 60-199 mg/dl 135 POC HA1C Latest Range: 4.3-6.1 % 5.5 Chol, Total No range found 206 (H) HDL Latest Range: 35-70 45 Triglycerides Latest Range: 40-160 109 LDL Cholesterol No range found 148 (H) T4, total No range found 9.9 Free T4 No range found 1.19 TSH No range found 1.03 XR CHEST ROUTINE PA & LATERAL No range found Rpt ??? BMI, pediatric, 99th percentile or greater for age ??? Breathing problem ??? Asthma No family history on file. see also Social history field History Social History Narrative Prior Medical History:: 6# 7+3/4 ounces, term baby born at [facility], no breathing problems or meconium at birthImmunizations: UTD, usually gets flu but has not received it yet this yearHospitalizations: three admissions, 2 for respiratory 06/17 and 2006 (one for RSV), and 1 for appendicitis. No intubation, no PICU admissions.Surgery: Ruptured appendectomy 12/18 (11 day admission)Family History:Mother: occasional bronchitis, no asthma, + seasonal allergies, no eczemaDad: no history of asthma, + seasonal allergiesPaternal side: adult diabetes and cancersBrother (5): healthySister (11): shreddedcartilage in knees with JRA (Dr. Hernandez and Dr. Bravo, Dr. Wilson), no eczema, allergies, asthmaMaternal uncle: epilepsyHX FAMILIAL SHORT STATUREDAD 5'2MOM 5'1Social and Environmental History:Lives with her mother, sister and brother in a trailer without a basement. Mother unsure of age of trailer.Heat is propane. No woodstove or fireplace. Mother smokes outside. No one smokes at her father's jhonny se. At her mother's, they have a dog who lives inside and is in Sweetie's bedroom. No visible mold,problem with roaches, no farm animals. Sweetie does have stuffed animals, feather comforter in her room as well as blinds, drapes, hardwood and carpet. Walking some and does gym twice a week but breaths harder. Sweetie is in 3rd grade. Likes guidance (writing/jouraling), likes TV, watches for hoursa day. CHIEF COMPLAINT: Health habits counseling for diet, exercise, weight management INTERVAL HISTORY / PROGRESS TOWARD GOALS: x[ ] Labs reviewed today that were done 03/21/12 Results for SWEETIE FLORES ( ) as of 04/19/2012 16:59 Ref. Range 03/21/2012 00:00 AST Latest Range: 2-40 27 (External Lab) ALT Latest Range: 3-30 32 (EXTERNAL/ABN) BUN No range found 13 (External Lab) Creatinine No range found 0.5 (External Lab) Glucose Fasting No range found 87 (External Lab) Chol, Total No range found 176 (External Lab) HDL No range found 29 (EXTERNAL/ABN) Triglycerides No range found 63 (External Lab) LDL Cholesterol No range found 135 (EXTERNAL/ABN) Interim medical: Seen by pulm Admitted for asthma, now better Was referred to sleep lab for eval MONSE Mom concerned about emotional eating and anger - mom herself ahs depression and dad was just diagnosed with bi-polar Diet: Overall mom says her 12yo, also overweight is doing great - on board - but saphire isn't She isn't making much progress Not adjusting to it well Last night spagetti - portioning and got mad 5 min later hungry Told her to get a glass of water if hungry To dad's on Monday At GPs is doing well - they are on board Exercise: Starts tomorrow Swimming 1 day / weeks Supports: Also working with someone in town - local assistant manager trainee - mom can't remember name - has had one visit - seems like helpful info - is willing to go to store with her Mom was going to have assistant manager trainee call Heidi And in school - 2 nurses [phone] Mrs. Scott she has lunch with once a week - wed Nurses: Trudi Petit. Anum wild Plan: 3 day diet recall I said I would find out about local counseling options Will sign release at desk No new goals set today - encouraged work on balanced diet, watching portions OTHER ISSUES: HTN: wnl Insulin Resistance: Acanthosis with NL HA1C and fasting glucose indicating compensated early insulin resistance. We will cont to work on diet, exercise and weight loss Sleep / sleep apnea: Referral has been made to Sleep lab by pulmonology Asthma: recent admit, now without ongoing symptoms, stable on controller medication YENIFER: denies Constipation: denies Menstruation: denies Depression/Anxiety: denies but mom concerned about strong Fhx depression and bipolar and some angerissues in Saphire Lipids:Elevated LDL - reviewed diet changes to address high lipids MILLER: NL LFTs per outside reference lab but mildly elevated per [facility] norms - will repeat in 6 months, cont to work on diet and weight loss REVIEW OF SYSTEMS: see above HPI for additional pertinent +/- findings General: No reported fevers, chills. + obesity Constitutional: NL appetite and energy. No unexpected weight loss or gain. Eyes: No reported changes in vision, eye pain or redness HEENT: No reported ear pain, rhinorrhea, mouth pain, sore throat, difficulty swallowing CV: No reported chest pain or discomfort, no palpitations. RESP: No reported shortness of breath, cough, or wheezing GI: No reported nausea,vomiting, diarrhea, constipation, abdominal pain. : No reported dysuria, hematuria, urinary frequency or urgency. Musculoskeletal: No reported joint pain or swelling. Integumentary: No rash or bruising Hematological: No reports of pallor, easy bruising or bleeding, frequent infections Psychiatric: No anxiety, depression in past but new episodes on anger, crying VITAL SIGNS: Filed Vitals: 04/19/12 1042 BP: 110/72 Height: 122.5 cm (4' 0.23) Weight: 47.174 kg (104 lb) Body mass index is 31.44 kg/(m^2). 99.61%ile based on CDC 2-20 Years BMI-for-age data. Last 5 weight values: Wt Readings from Last 5 Encounters: 04/19/12 47.174 kg (104 lb) (98.96%*) 04/06/12 47.356 kg (104 lb 6.4 oz) (99.05%*) 12/15/11 44.997 kg (99 lb 3.2 oz) (99.00%*) 11/09/11 43.092 kg (95 lb) (98.73%*) * Growth percentiles are based on CDC 2-20 Years data. BP: (110)/(72) Last 3 BP values: BP Readings from Last 3 Encounters: 04/19/12 110/72 04/06/12 108/64 12/15/11 112/76 BP norms for age and gender 90.1% systolic and 90.3% diastolic of BP percentile by age, sex, and height. 114/76 is approximately the 95th BP percentile reading. PHYSICAL EXAM: Gen: Alert and active, NAD Skin: Warm, pink, no rashes, + acanthosis Head/Neck: NC/AT, neck supple, no LAD Eyes: PERRLA, clear conjunctiva ENT: MMM, OP clear, TMs wnl, no rhinnorhea or congestion CV: RRR, NL S1S2, no murmur, 2+ pulses Resp: CTAB, no WOB, no wheezes/crackles Abd: +BS, soft, NT/ND, no HSM/masses appreciated Neuro: Grossly wnl Psych: NL affect today ASSESSMENT / PLAN: See visit summary above [ ] I reviewed past records including notes, labs, and growth chart as provided from referring provider [x ] I reviewed previous / current labs with the family today [ x ] Counseling given regarding exercise, nutrition and media use as well as Obesity co-morbidities and their management PREVIOUS LABS: Lab Results Component Value Date CHLPL 176* 03/21/2012 CHLPL 206* 01/12/2011 Lab Results Component Value Date HDL 29* 03/21/2012 HDL 45 01/12/2011 Lab Results Component Value Date LDLCHOL 135* 03/21/2012 LDLCHOL 148* 01/12/2011 Lab Results Component Value Date TRIG 63* 03/21/2012 TRIG 109 01/12/2011 No results found for this basename: CHOLHDL Lab Results Component Value Date HA1C 5.5 12/15/2011 Lab Results Component Value Date GLUCFASTING 87* 03/21/2012 Lab Results Component Value Date AST 27* 03/21/2012 Lab Results Component Value Date ALT 32* 03/21/2012 LABS ORDERED TODAY: No orders of the defined types were placed in this encounter. documented in this encounter Plan of Treatment Not on file documented as of this encounter Visit Diagnoses Diagnosis Breathing problem- Primary Respiratory abnormality, unspecified Asthma Unspecified asthma Acanthosis nigricans Acquired acanthosis nigricans Exercise counseling Dietary counseling and surveillance Dietary surveillance and counseling Morbid obesity BMI, pediatric, 99th percentile or greater for age Body Mass Index, pediatric, greater than or equal to 95th percentile for age Dyslipidemia Other and unspecified hyperlipidemia Transaminitis Nonspecific elevation of levels of transaminase or lactic acid dehydrogenase (LDH) documented in this encounter Care Teams Plant Scientist Relationship Specialty Start Date End Date Roscoe Mcgill MD [address] [place] [address] PCP - General 11/09/11 07/19/16 documented as of this encounter
--- OUTSIDE RECORDS SUMMARY | 2024-03-18 11:32 | XMS_ITS | Encounter Summary ---
Author Organization [facility] Address [facility] [place] [address] Care Team Providers Care Microarray Specialist Name Role Phone Cameron Mcgill MD Primary Care Provider [phone] Reason for Visit * Reason Comments Obesity Encounter Details Date Type Department Care Team (Late st Contact Info) Description 12/15/2011 11:00 AM EDT Office Visit Pediatrics at [address] [phone] Cris Dawson MD [facility] [place] [address] Obesity (Primary Dx); Asthma, moderate persistent, well-controlled; Morbid obesity; Dietary counseling and surveillance; Exercise counseling; Acanthosis nigricans; BMI, pediatric, 99th percentile or greater for age Discharge Disposition: Home Social History Tobacco Use [...] Sign Reading Time Taken Comments Blood Pressure 112/76 12/15/2011 10:52 AM EDT Pulse - - Temperature - - Respiratory Rate - - Oxygen Saturation - - Inhaled Oxygen Concentration - - Weight 45 kg (99 lb 3.2 oz) 12/15/2011 10:52 AM EDT Height 120 cm (3' 11.24) 12/15/2011 10:52 AM ED T Body Mass Index 31.25 12/15/2011 10:52 AM EDT Body Mass Index Percentile 99.97% 12/15/2011 10: 52 AM EDT Growth Chart: CDC (Girls, 2- 20 Years) documented in this encounter Patient Instructions * Patient Instructions* Cris Dawson MD - 12/15/2011 12:23 PM EDT [facility] Thank you for participating in the [facility] Program. The goal of the [facility] clinic is to help children and their families to attain a health weight through healthy eating and regular exercise. We will work to treat any medical issues identified for your child. Some general goald to working on include: Diet: 1. Switch to skim / non-fat milk, limit sweet drinks / choose water instead. Whole fruit is a better choice than fruit juice 2. Watch portions - try to stick to 3 meals with single portions, and 2 small healthy snacks (fruit, veggies, yogurt rather than packaged snack foods) 3. Include fruits and veggies at each meal - a adjunct faculty for medical terminology goal would be filling half your plate [...] then work up to 60 minutes daily - try to identify some fun options for activity by our next visit Media: 2. Limit all media (TV, computer, video games, movie, texting, facebook) to 1-2 hours a day. Make media time active if possible (Wi[employer]) - you are doing great on this!! Pick several areas to work on - start small and work up to your final goals Other issues addressed today: 1. Colton has signs that she is at risk for developing diabetes (the brown patch on her neck called acathosis nigricans). We checked her glucose (sugars) today which was normal but we know that her body is working hard to keep her sugar normal so working toward a healthy weight is very important. 2. I have ordered additional fasting labs at your local hospital that you should bring Colton for sometime in the next week. She should have only water after dinner time. I will call with results ofthese labs which will check her cholesterol and liver. 4. Colton's asthma is improved and she has no symptoms today but if she has another attack like the one the school called about she should see her valve inspector or been seen sooner in [place] [facility] 5. If you could sign a release and have the school nurse give me a call, we can work with her to help Colton with healthy choices at school, and some physical activity. 6. Continue to use the mirilax as instructed for constipation Labs done at this visit Recent Results (from the past 24 hour(s)) POCT FINGERSTICK GLUCOSE Component Value Range ??? POC Glucose 135 60 - 199 (mg/dl) POCT GLYCATED HEMOGLOBIN, TOTAL (HA1C) Component Value Range ??? POC HA1C 5.5 4.3 - 6.1 (%) Laboratories have been ordered: Orders Placed This Encounter Procedure ??? Lipid panel (fasting) ??? Cmp w/fasting glucose ??? Poct fingerstick glucose ??? Poct glycated hemoglobin, total (ha1c) Measurements taken today: Immunization History Administered Date(s) Administered ??? Influenza PF, Split 11/10/2011 Filed Vitals: 12/15/11 1052 BP: 112/76 Height: 120 cm (3' 11.24) Weight: 44.997 kg (99 lb 3.2 oz) Body mass index is 31.25 kg/(m^2). 99.64% of growth percentile based on BMI-for-age. 94.1% systolic and 95.6% diastolic of BP percentile by age, sex, and height. 113/75 is approximately the 95th BP percentile reading. BP: (112)/(76) BP Readings from Last 3 Encounters: 12/15/11 112/76 11/09/11 114/60 94.1% systolic and 95.6% diastolic of BP percentile by age, sex, and height. 113/75 is approximately the 95th BP percentile reading. Thank you for allowing me to participate in your pita care. I look forward to seeing you and Colton at our next visit in 1 month Cris Dawson MD MPH Co-Director, [facility], [place] documented in this encounter Progress Notes * Mildred Leon RD - 12/15/2011 1:19 PM EDT Colton Flores is a 6 y.o. female here for nutrition assessment. This dietitian briefly met with family and pt to discuss eating patterns and nutrition concerns. Mom states she is hungry all the time. Goes to grandmothers house 3 weekends/month and gets a lot of fast food. She is not a picky eater and is willing to try new foods. Eats school breakfast and lunch at school. Sample dinner could be 2 tacos with meat and cheese, no veg, crystal light lemonade. The following goals were agreed upon until next visit: Small portions of carbohydrates at meals and snacks Carbohydrate counting started: 40g/meal; 15g/snack Avoid sugary drinks and sweets and drink more water Control portions of all foods by estimating with her fist size Increase fruits and veggies Start with veggies first to fill up and finish with her favorite food in hopes she will eat less Bring food record to next visit including school food Time spent with pt: 15 minutes. Follow up: 1-[address], LD, CDE * Cris Dawson MD - 12/15/2011 12:27 PM EDT [facility] Visit Date: Colton Flores 2005 6 y.o. [address] m[address] None MD Dr CAMERON OROZCO MD / None Thank you for referring Britany Ramirez to the [facility] for evaluation / consultation regarding obesity. Please see summary of visit and recommendations as below Dr. Samir ROJAS, MPH SUMMARY OF VISIT AND RECOMMENDATIONS: Obese 6 y.o. 2 m.o. with BMI% 99.64% of growth percentile based on BMI-for-age. with acanthosis nigricans concerning for early insulin resistance as well as hyperlipidemia putting her at ignificant risk for diabetes, CV disease and metabolic syndrome. Random glucose 135 today in conjunction of HA1Cof 5.5. Fasting labs ordered for local lab to assess fasting lipids - last labs a year ago with hyperlipidemia. I will call mom with results once obtained. Mom, Sonali, is very much on board - she willtry to have GM come to next visit to help to bring her on board F/u with [facility] 1 month. Care management will plan to call in 2 weeks to help with health counseling and progress toward goals as described below I spent a total of 60 minutes with the patient over 50% of which was which was spent in [id number] discussion/counseling re obesity, nutrition and activity HEALTH HISTORY Current outpatient prescriptions ordered prior to encounter Medication Sig Dispense Refill ??? montelukast (SINGULAIR) 5 mg chewable tablet Take 5 mg by mouth nightly. ??? fluticasone (FLONASE) 50 mcg/actuation nasal spray 1 spray by Each Nare route nightly. ??? Levalbuterol Tartrate (XOPENEX HFA) 45 mcg/actuation inhaler Inhale 1-2 puffs into the lungs every 4 hours as needed. ??? fluticasone-salmeterol (ADVAIR HFA) 115-21 mcg/actuation inhaler Inhale 2 puffs into the lungs 2 times daily. 1 Inhaler 12 Allergies Allergen Reactions ??? Penicillins CIS - Hives No past medical history on file. History Social History Narrative Prior Medical History:: 6# 7+3/4 ounces, term baby born at [facility], no breathing problems or meconium at [...] Dr. [place]), no eczema, allergies, asthmaMaternal uncle: epilepsySocial and Environmental History:Lives with her mother, sister and brother in atrailer without a basement. Mother unsure of age of trailer. Heat is propane. No woodstove or fireplace. Mother smokes outside. No one smokes at her father's house. At her mother's, they have a dog who lives inside and is in Saphneema's bedroom. No visible mold, problem with roaches, no farm animals.Colton does have stuffed animals, feather comforter in her room as well as blinds, drapes, hardwood and carpet. Walking some and does gym twice a week but breaths harder. Colton is in 3rd grade. Likes guidance (writing/jouraling), likes TV, watches for hours a day. Patient Active Problem List Diagnoses ??? Breathing problem ? ? Obesity peds (BMI >=95 percentile) BMI > 29 kg/m2 11/09/11 ??? Asthma No family history on file. From endocrinology note, confirmed today: Prior Medical History: : 6# 7+3/4 ounces, term baby born at [facility], no breathing problems or meconium at [...] no eczema, allergies, asthma Maternal uncle: epilepsy Social and Environmental History: Lives with her mother, sister and brother in a trailer without a basement. Mother unsure of age of trailer. Heat is propane. No woodstove or fireplace. Mother smokes outside. No one smokes at her father's house. At her mother's, they have a dog who lives inside and is in [facility]'s bedroom. No visible mold, problem with roaches, no farm animals. Colton does have stuffed animals, feather comforterin her room as well as blinds, drapes, hardwood and carpet. Walking some and does gym twice a week but breaths harder. Colton is in 3rd grade. Likes guidance (writing/jouraling), likes TV, watches for hours a day. CHIEF COMPLAINT: Health habits counseling for diet, exercise, weight management INTERVAL HISTORY / PROGRESS TOWARD GOALS: [x ] Labs reviewed today Diet: Breakfast- at school (colton says eggs, pizza toasts, no cereal - mom doesn't know) Snack - special K bars, fudge crackers Lunch - school lunch - mom has menu but doesn't monitor - Colton says she had pizza on Monday but often cold bag lunch with sandwich, pretzels, fruit, emil milk (she doesn't eat the bread b/c doesn't like wheat bread). She says no dessert Snack - fruit when she gets home per mom - not a lot of extra snacking or sneaking if mom monitors Dinner - Meat / veggie / starch - little cooking oil, no desserts Drinks- crystal light Mom has good relationship with the school nurse - she will sign a release and have school nurse communicate with me so we can help Colton with choices at school for breakfast and lunch Activity: doesn't like it. Mom says has TV limits, sends them outside even in colder weather and she will just sit on the porch. No organized activities. Media: 4 TVs in house, in bedrooms. Mom limits to 1 hour after dinner and that is it. Readiness to change assessment: very motivated immediate family - lives primarily with mother //father and GM not on board. Colton herself is good about following GOALS SET TODAY: Diet: See RD note - carb counting reviewed and basic goals set Media: keep up the good work Exercise: find a fun activity that she enjoys - start slowly with 2-3 days a week and work up from there OTHER ISSUES: HTN: 2 visits with BP just at 95th percentile - plan for weight loss, low sodium diet, repeat at next visit Insulin Resistance: + acanthosis nigricans but HA1C 5.5. Fasting labs ordered Sleep: + snoring but no apnea per mom Orthopedics: no concerns Asthma: Seen recently in pulmonology for poorly controlled mod persistent asthma - improved since this visit except for one episode at school where she got SB them panicky then light-headed YENIFER: no Menstruation: not yet Depression/Anxiety: no hx Social stressors - lives with mother, dad not involved. Per court dad has her 3 weekends a month but mom says she spends all her time with her PGM. Mom says Colton's GM isn't on board and that they go frequently for fast food. Her GM says she is beautiful the way she is. Her GM has diabetes and isobese herself but mom says isn't motivated for change. REVIEW OF SYSTEMS: see above HPI for additional pertinent +/- findings General: No reported fevers, chills. + obesity Constitutional: NL appetite and energy. No unexpected weight loss or gain. Eyes: No reported changes in vision, eye pain or redness HEENT: No reported ear pain, rhinorrhea, mouth pain, sore throat, difficulty swallowing + snoring CV: No reported chest pain or discomfort, no palpitations. RESP: No current reported shortness of breath, cough, or wheezing GI: No reported nausea,vomiting, diarrhea, constipation, abdominal pain. : No reported dysuria, hematuria, urinary frequency or urgency. Musculoskeletal: No reported joint pain or swelling. Integumentary: No rash or bruising Hematological: No reports of pallor, easy bruising or bleeding, frequent infections Psychiatric: No anxiety, depression Neuro: + intermittent headaches treated with tylenol, no progresssion, no waking at night, no neurosymptoms VITAL SIGNS: Filed Vitals: 12/15/11 1052 BP: 112/76 Height: 120 cm (3' 11.24) Weight: 44.997 kg (99 lb 3.2 oz) Body mass index is 31.25 kg/(m^2). 99.64% of growth percentile based on BMI-for-age. BP: (112)/(76) BP Readings from Last 3 Encounters: 12/15/11 112/76 11/09/11 114/60 94.1% systolic and 95.6% diastolic of BP percentile by age, sex, and height. 113/75 is approximately the 95th BP percentile reading. PHYSICAL EXAM: Gen: Alert and active, NAD Skin: Warm, pink, no rashes, + acanthosis of neck Head/Neck: NC/AT, neck supple, no LAD. Fundoscopic exam wnl but somewhat limited Eyes: PERRLA, clear conjunctiva ENT: MMM, OP clear, TMs wnl, no rhinnorhea or congestion CV: RRR, NL S1S2, no murmur, 2+ pulses Resp: CTAB, no WOB, no wheezes/crackles Abd: +BS, soft, NT/ND, no HSM/masses appreciated Genitalia: SMR1 Trunk/Spine: wnl Neuro: Grossly wnl, DTRs 2+ Extremities: FROM Psych: NL affect today ASSESSMENT / PLAN: See visit summary above [ x ] I reviewed past records including notes, labs, and growth chart as provided from referring provider [ x] I reviewed previous / current labs with the family today [ x ] Counseling given regarding exercise, nutrition and media use as well as Obesity co-morbidities and their management LABS ORDERED TODAY: Orders Placed This Encounter Procedure ??? Lipid panel (fasting) ??? Cmp w/fasting glucose ??? Poct fingerstick glucose ??? Poct glycated hemoglobin, total (ha1c) Point of care lab results: ?? Random glucose = 135 ?? HA1C = 5.5 documented in this encounter Plan of Treatment Not on file documented as of this encounter Procedures Procedure Name Priority Date/Time Associated Diagnosis Comments POCT GLYCATED HEMOGLOBIN, TOTAL (HA1C) Routine 12/15/2011 12:26 PM EDT Obesity POCT FINGERSTICK GLUCOSE Routine 12/15/2011 12:18 PM EDT Obesity TSH Routine 01/12/2011 LIPID PANEL (REFLEX DIRECT LDL) Routine 01/12/2011 documented in this encounter Results * (ABNORMAL) CMP w/fasting Glucose (03/21/2012) Glucose Fasting 87(Home Energy Consultant Supervisor al Lab) Blood Urea Nitrogen 13(Home Energy Consultant Supervisor al Lab) Creatinine 0.5(Exter nal Lab) Aspartate Aminotransferase 27(Home Energy Consultant Supervisor al Lab) 2 - 40 Alanine Aminotransferase 32(INTERACTIVE PROJECT MANAGER AL/ABN) 3 - 30 Blood specimen (specimen) Cris Dawson MD CHEMISTRY ORDERABLES * (ABNORMAL) Lipid panel (fasting) (03/21/2012) Cholesterol, Total 176(Exter nal Lab) mg/dL Triglyceride 63(Home Energy Consultant Supervisor al Lab) mg/dL HDL Cholesterol 29(INTERACTIVE PROJECT MANAGER AL/ABN) md/dL LDL Cholesterol 135(EXTER NAL/ABN) mg/dL Blood specimen (specimen) Cris Dawson MD CHEMISTRY ORDERABLES * POCT glycated hemoglobin, total (HA1C) (12/15/2011 12:26 PM EDT) Hemoglobin A1C, POC 5.5 4.3 - 6.1 % 12/15/2011 12:2 6 PM EDT Cris Dawson MD POINT OF CARE TEST O RDERABLES * POCT Fingerstick Glucose (12/15/2011 12:18 PM EDT) Glucose, POC 135 60 - 199 mg/dl 12/15/2011 12:1 8 PM EDT Cris Dawson MD POINT OF CARE TEST O RDERABLES * (ABNORMAL) Lipid panel (fasting) (01/12/2011) Cholesterol, Total 206(H) Triglyceride 109 40 - 160 HDL Cholesterol 45 35 - 70 LDL Cholesterol 148(H) Blood specimen (specimen) 01/12/2011 Marlene Davis MD CHEMISTRY ORDERAB LES * TSH (01/12/2011) Thyroid Stimulating Hormone 1.03 Free T4 1.19 T4 Total 9.9 Blood specimen (specimen) 01/12/2011 Historical Provider CHEMISTRY ORDERAB LES documented in this encounter Visit Diagnoses Diagnosis Obesity- Primary Obesity, unspecified Asthma, moderate persistent, well-controlled Unspecified asthma Morbid obesity Dietary counseling and surveillance Dietary surveillance and counseling Exercise counseling Acanthosis nigricans Acquired acanthosis nigricans BMI, pediatric, 99th percentile or greater for age Body Mass Index, pediatric, greater than or equal to 95th percentile for age Obesity Obesity, unspecified documented in this encounter Care Teams Microarray Specialist Relationship Specialty Start Date End Date Cameron Mcgill MD [address] [place] [address] PCP - General 11/09/11 07/19/16 documented as of this encounter
--- OUTSIDE RECORDS SUMMARY | 2024-03-18 11:32 | XMS_ITS | Encounter Summary ---
Author Organization [facility] [place] [address] Care Team Providers Care Personnel Security Assistant Name Role Phone Kirt Mcgill MD Primary Care Provider [phone] Encounter Details Date Type Department Care Team (Late st Contact Info) Description 10/12/2012 [place] [address] Marck Jerez MD [facility] DR OPHTHALM[place]Y [place] [address] Social History Tobacco Use Types Packs/Day Years [...] on filedocumented in this encounter Care Teams Personnel Security Assistant Relationship Specialty Start Date End Date Kirt Mcgill MD [address] [place] [address] PCP - General 11/09/11 07/19/16 documented as of this encounter
--- OUTSIDE RECORDS SUMMARY | 2024-03-18 11:32 | XMS_ITS | Encounter Summary ---
Author Organization [facility] [place] [address] Care Team Providers Care Valve Maker Name Role Phone Kirt Mcgill MD Primary Care Provider [phone] Reason for Visit * Reason Onset Date Comments Other 12/26/2011 Encounter Details Date Type Department Care Team (Late st Contact Info) Description 12/26/2011 Telephone Pediatrics at [address] [phone] Kirt Mcgill MD [address] [place] [address] [place], [place] [id number] Other Social History Tobacco Use Types Packs/Day Years Used Date Smoking Tobacco: Passive Smo ke Exposure - Never Smoker Comments:mother smokes outsi de Sex and Gender Information Value Date Recorded Sex Assigned at Not on file Gender Identity Not on file Sexual Orientation Not on file documented as of this encounter Miscellaneous Notes * Telephone Encounter - Ana Dawson MD - 12/26/2011 2:15 PM EST Anum (or kaushik) - orders are in eDH entered at last visit (fasting lipid panel and CMP- future)- can you make sure they get faxed over again if not already there and that mom knows Thanks ana * Telephone Encounter - Ekaterina Mcdaniel - 12/26/2011 9:08 AM EST SEEN BY DR DAWSON THROUGH [facility], SHE REQUESTED BLOOD WORK BE DONE AT LOCAL HOSPITAL BUT HAVING DIFFICULTY GETTING ORDERS THERE. PLEASE CALL MOM TO DISCUSS THANK YOU, EKATERINA documented in this encounter Plan of Treatment Not on file documented as of this encounter Visit Diagnoses Not on filedocumented in this encounter Care Teams Valve Maker Relationship Specialty Start Date End Date Kirt Mcgill MD [address] [facility] [place] [address] PCP - General 11/09/11 07/19/16 documented as of this encounter
--- OUTSIDE RECORDS SUMMARY | 2024-03-18 11:32 | XMS_ITS | Encounter Summary ---
Author Organization [facility] [place] [address] Care Team Providers Care Caddy Name Role Phone Kirt Mcgill MD Primary Care Provider [phone] Reason for Visit * Reason Onset Date Comments Referral 11/09/2011 Encounter Details Date Type Department Care Team (Late st Contact Info) Description 11/09/2011 Telephone [place] [phone] Kirt Mcgill MD [address] [facility], [place] [id number] Referral Social History Tobacco Use Types Packs/Day Years Used Date Smoking Tobacco: Passive Smo ke Exposure - Never Smoker Comments:mother smokes outsi de Sex and Gender Information Value Date Recorded Sex Assigned at Not on file Gender Identity Not on file Sexual Orientation Not on file documented as of this encounter Miscellaneous Notes * Telephone Encounter - Anum Lemus - 11/09/2011 3:21 PM EDT Patient was referred by Susan Gary. Please advise who patient should be scheduled with. documented in this encounter Plan of Treatment Not on file documented as of this encounter Visit Diagnoses Not on filedocumented in this encounter Care Teams Caddy Relationship Specialty Start Date End Date Kirt Mcgill MD [address] [place], [place] [id number] PCP - General 11/09/11 07/19/16 documented as of this encounter
--- OUTSIDE RECORDS SUMMARY | 2024-03-18 11:32 | XMS_ITS | Encounter Summary ---
Author Organization [facility] [place] [address] Care Team Providers Care Salesperson Men'[employer] Clothing Name Role Phone Cameron Brooke MD Primary Care Provider Reason for Referral * Consultation (Routine) - Closed Specialty Diagnoses / Procedures Referred By Contact Referred To Contact Pediatric Gastroenterology Diagnoses Obesity peds (BMI >=95 percentile) Susan Gary MD [facility] [place] [address] [facility] Pedi Gastro [address] [place] [address] Referral ID Status Reason Start Date Expiration Date V isits Requested Visits Authorized [id number] Closed Consult, Test & Treat 11/09/2011 05/07/2012 1 1 Reason for Visit * Reason Comments Asthma Encounter Details Date Type Department Care Team (Late st Contact Info) Description 11/09/2011 9:00 AM EDT Office Visit Pediatric [place] [address] Kenya Gorman MD Baker, Dianna G, MD [facility] [place] [address] Asthma (Primary Dx); Obesity peds (BMI >=95 percentile) Discharge Disposition: Home Social History Tobacco Use [...] Sign Reading Time Taken Comments Blood Pressure 114/60 11/09/2011 9:03 AM EDT Pulse 111 11/09/2011 9:03 AM EDT Temperature - - Respiratory Rate 18 11/09/2011 9:03 AM EDT Oxygen Saturation 97% 11/09/2011 9:03 AM EDT Inhaled Oxygen Concentration - - Weight 43.1 kg (95 lb) 11/09/2011 9:03 AM EDT Height 121.1 cm (3' 11.68) 11/09/2011 9:03 AM E DT Body Mass Index 29.38 11/09/2011 9:03 AM EDT Body Mass Index Percentile 99.89% 11/09/2011 9:0 3 AM EDT Growth Chart: [facility] (Girls, 2- 20 Years) documented in this encounter Patient Instructions * Patient Instructions* Kenya Gorman MD - 11/09/2011 11:46 AM EDT Flu shot given for the season. See new Asthma Action Plan Daily preventive treatment for asthma is NECESSARY to keep her lungs healthy She needs more exercise and better control of her weight. Her obesity is affecting her asthma. Her obesity is affecting her ability to exercise. documented in this encounter Progress Notes * Kenya Gorman MD - 11/09/2011 4:23 PM EDT I have reviewed Dr. Gary's note, reviewed history with mother and examined [place]. I agree with findings as presented by Dr. Gary. Asthma symptoms are out of proportion to objective findings on PFT, exam and chest xray. Strong suspicion that obesity and deconditioning is playing a much greater role in exercise intolerance and even night symptoms than asthma. However, asthma control may be less than optimal and working to maximize asthma control will be first measure. Trial of Singulair in addition to optimizing Advair dose is first intervention. Improving adherence to medication administration, particularly at father's house will be critical. Dual sets of information/instructions sent with mother to transmit copy to father and PGM. She needs to exercise and to be pushed to improve stamina. Using bronchodilator before exercise will help to remove asthma as limiting factor. She needs overalll lifestyle rehabilitation regarding obesity and its long distance operator implications for her. We will follow closely and work to improve both asthma and overall status. Agree with suggestion [facility] program to accomplish this, although the distance from her home may make regular attendance not feasible. * Susan Gary - 11/09/2011 9:17 AM EDT 11/09/2011 SUSAN GARY MD Felipa Brasher [facility] 6 y.o. [id number] CAMERON BROOKE MD [phone] Tabatha Antunez CC: Uncontrolled asthma despite therapy. HPI: Felipa is a 6 y.o.female for whom consultation is sought by Dr. Antunez regarding difficult to control asthma. History is obtained from mother and Felipa Records of prior care are available and reviewed as part of the encounter. Felipa is an 6 year old with obesity and a history of respiratory distress as young child and RSV infection at 1 years old both requiring hospitalization who has had breathing difficulty all her life per mother. She has shortness of breath every day. She has dyspnea when sitting which is worse with any kind of exertion. Her dyspnea is worse in the summer with weather changes, exercise, smoking, lying down (elevates the head of her bed). She is coughing 3-4 days a week. Her cough wakes her up 5nights per week. Her cough is dry and triggered by the same triggers as her shortness of breath including smoke, weather, exercise, infections, emotion. Sometimes cool weather helps her cough other times it makes it worse. She is using Xopenex 3-4 times daily which helps for about 20 minutes at a time. She had been on Flovent for the past year which did not improve her symptoms per her mother. She was switched to Advair 2 months ago 100/50 1 puff BID with mild improvement in SOB. Compliance is excellent at mother's house but when visiting Dad's (3 weekends a month) grandmother doesn't give medicines routinely. She has had 2 admissions, one at 9 months for respiratory distress and again at 1years both requiring hospitalization but no PICU admissions or intubations. Has used oral steroids twice. She was recently brought into the ER 5 days prior to this visit for barky cough after missingmedicines at father's house but had reassuring saturations. She was seen 3 weeks ago at her pediatri reyes's office with worsening cough which was tested for pertussis given recent exposure but test was negative. She completed a course of azithromycin for this. Sounds congested all the time despite Flonase and Singulair. Always breaths through her mouth even during the day. She snores at night time. She has occasionally gasping while sleeping but more when she's sick and no apnea at baseline. ROS: Constitutional: no fevers, no weight loss, + weight gain, meeting with supervisory clerk Allergy/Immunology: no runny nose, no teary eyes, no sneezing Skin: pilaris keratosis Musculoskeletal: no joint issues Eye: no issues with vision ENT: +noisy breathing and + snoring, + nose bleeds increased in winter time Respiratory: + cough, wheezing Cardiovascular: heart murmur called innocent, now gone Gastrointestinal: + constipation, occasionally Miralax. No heart burn symptoms Neuro/Psych: + headaches on occasion, cries a lot, sad a lot per mother, mother with depression Patient Active Problem List Diagnoses Code ??? Breathing problem 786.00V Current outpatient prescriptions ordered prior to encounter Medication Sig Dispense Refill ??? azithromycin (ZITHROMAX) 100 mg/5 mL suspension Variable by Day, PO Allergies Allergen Reactions ??? Penicillins CIS - Hives Prior Medical History: : 6# 7+3/4 ounces, term baby born at [facility], no breathing problems or meconium at Immunizations: [...] likes TV, watches for hours a day. Exam: Filed Vitals: 11/09/11 0903 BP: 114/60 Pulse: 111 Resp: 18 Height: 121.1 cm (3' 11.68) Weight: 43.092 kg (95 lb) SpO2: 97% General: Well developed, obese child in no distress. Interactive and engaging. Head: Normocephalic, atraumatic Eyes: Conjunctivae clear; no discharge Ears: TM's clear bilat; no erythema or bulging; landmarks visible Nose: Nasal airway patent; mucosa slightly boggy with clear nasal discharge Oropharynx: Mucous membranes moist; teeth with normal dentition; tonsils 1+; postnasal drainage no present; no cobblestone appearance of the posterior pharyngeal wall. Neck: Supple; no adenopathy; no mass Chest: No increase in AP diameter but tachypneic with fast breathing when going from lying down to sitting. No retractions or use of accessory muscles Lungs: Breath sounds clear; good air exchange. No rales, wheezes or rubs Heart/Vascular: RRR without murmur; pulses equal and full Abdomen: +BS, obese, large RLQ surgical scar, Soft, nontender; no HSM appreciated but exam limited due to obesity; no mass Extremities: No digital clubbing, No joint swelling or tenderness Skin: Acanthosis nigricans on posterior neck. Neurol: Grossly normal PFT: FVC 1.54 L (103% predicted); FEV 1 1.13 L (84%), FEV 1/FVC 0.73; FEF 25/75 0.96 L/S (54%) Interpretation: moderate obstruction without restriction Post bronchodilator: Only 4% increase in FEV1 and 6% increase in [id number] Interpretation: no significant post bronchodilator increase Xray: final read normal per radiology though on pulm read: mild hyperinflation and peribronchial markings Allergy skin testing: completely negative for birch, cat, dog, dust mites, ragweed, weed mix, grassmix, tree mix, aspergillus mix, alternaria, melba, maple, marquez's quarter, cladosporium, helminothosporium, mixed feathers Assessment: 6 year old with moderate to severe persistent asthma with PFTs demonstrating obstruction with no improvement with bronchodilator. Allergy testing was performed to assess any controllable triggers for her asthma which was negative. Will increase dose of daily preventative inhaled corticosteroid in hopes of improving her symptoms. Felipa is significantly deconditioned and becomes winded when going from lying to sitting. She has signs of insulin resistance on exam. Discussed using Xopenex prior to gym/activity but recommended more activity, decreasing empty calories, decreasing fastfoods and increasing fruits and veggies. Plan: -Switch advair to inhaler (instead of discus) with 2 puffs BID of 115/21, to use with spacer -Continue Xopenex as needed and prior to exercise -continue nasal treatments with Flonase and Singulair -Made updated asthma action plan for family/school -F/U appointment in 6 weeks with pediatric pulmonology at [facility] -Recommend healthy living and referral made for [facility] program in hopes of improving obesity, which will include screening tests for prediabetes/cholesterol documented in this encounter Procedure Notes * Kenya Gorman MD - 11/09/2011 4:00 PM EDTAssociated Order(s): ALLERGY SKIN TEST Procedure(s): PERCUTANEOUS TESTS W ALLERGENIC EXTRACTS, IMMEDIATE REACTION PRFM Pre-Procedure Diagnose(s): Asthma Allergy Skin Test Results Results recorded as mm wheal/mm flare 1. Histamine 7/45 9. Giant Ragweed 1/2 2. Saline Control 1/2 10. Falcon Mix 1/2 3. Birch 1/2 11. Grass Mix 1/1 4. Cat 2/2 12. Tree Mix 1/2 5. Dog 3/4 13. Aspergillus mix 2/2 6. D. Farinae (dust mite) 1/2 14. Alternaria 1/2 7. D. Pteronyssinus (dust mite) 1/2 15. Melba 02/15 8. Cleve Grass /2 16, Maple 03/18 34. Cladosporium neg/neg 36. Helminthosporium neg/2 Mixed feathers 02/14 Interpretation: All negative documented in this encounter Plan of Treatment Scheduled Referrals Name Type Priority Associated Diagnoses Orde r Schedule Referral [facility] Outpatient Referral Routine Obesity peds (BMI >=95 percentile) Ordered: 11/09/2011 documented as of this encounter Procedures Procedure Name Priority Date/Time Associated Diagnosis Comments PERCUTANEOUS TESTS W ALLERGENIC EXTRACTS, IMMEDIATE REACTION PRFM Routine 11/10/2011 8:42 PM EDT Asthma documented in this encounter Results * PERCUTANEOUS TESTS W ALLERGENIC EXTRACTS, IMMEDIATE REACTION PRFM (11/10/2011 8:42 PM EDT) Narrative Kenya Gorman MD - 11/10/2011 8:42 PM EDT Allergy Skin Test Results Results recorded as mm wheal/mm flare 1. ??Histamine 7/45 ?9. ??Giant Ragweed 1/2 2. ??Saline Control 1/2 ?10. ??Falcon Mix 1/2 3. ??Birch 1/2 ?11. ??Grass Mix 1/1 4. ??Cat 2/2 ?12. ??Tree Mix 1/2 5. ??Dog 3/4 ?13. ??Aspergillus mix 2/2 6. ??D. Farinae (dust mite) 1/2 ?? 14. ??Alternaria 1/2 7. ??D. Pteronyssinus (dust mite) 1/2 ??15. ??Melba 1/ 8. ??Cleve Grass 1/2 ?16, ??Maple 2/3 34. ??Cladosporium neg/neg ?36. ??Helminthosporium neg/2 Mixed feathers ??1/2 Interpretation: ??All negative Procedure Note Kenya Gorman MD - 11/09/2011 4:00 PM EDT Allergy Skin Test Results Results recorded as mm wheal/mm flare 1. Histamine 9. Giant Ragweed / 2. Saline Control 02/14 10. Falcon Mix 1/2 3. Birch / 11. Grass Mix / 4. Cat / 12. Tree Mix / 5. Dog 04/16 13. Aspergillus mix / 6. D. Farinae (dust mite) 02/14 14. Alternaria 02/14 7. D. Pteronyssinus (dust mite) 02/14 15. Melba 02/15 8. Cleve Grass 1/2 16, Maple 2/3 34. Cladosporium neg/neg 36. Helminthosporium neg/2 Mixed feathers 1/2 Interpretation: All negative Kenya Gorman MD PROCEDURE/MINOR SURG ICAL ORDERABLES * XR chest routine PA & lateral (11/09/2011 11:32 AM EDT) Anatomical Region Laterality Modality Chest N/A Radiographic Kiana ging 11/09/2011 11:3 2 AM EDT Narrative 11/09/2011 11:37 AM EDT Examination CHEST ROUTINE PA+LAT Clinical History obese female with asthma and dyspnea Technique Comparison NONE Findings The lungs are clear. The cardiovascular structures appear normal. No skeletal abnormality is seen. Impression Normal. Procedure Note Jass Mcdonnell MD - 11/09/2011 Examination CHEST ROUTINE PA+LAT Clinical History obese female with asthma and dyspnea Technique Comparison NONE Findings The lungs are clear. The cardiovascular structures appear normal. Noskeletal abnormality is seen. Impression Normal. Kenya Gorman MD IMG DX ORDERABLES documented in this encounter Visit Diagnoses Diagnosis Asthma- Primary Unspecified asthma Obesity peds (BMI >=95 percentile) Obesity, unspecified Asthma Unspecified asthma documented in this encounter Care Teams Salesperson [employer] Relationship Specialty Start Date End Date Cameron Brooke MD [address] [place] [address] [place] [address] PCP - General 11/09/11 07/19/16 documented as of this encounter
--- OUTSIDE RECORDS SUMMARY | 2024-03-18 11:32 | XMS_ITS | Encounter Summary ---
Author Organization [facility] [place] [address] Care Team Providers Care Asbestos Microscopist Name Role Phone Kirt Mcgill MD Primary Care Provider [phone] Encounter Details Date Type Department Care Team (Late st Contact Info) Description 03/19/2012 External Results Pediatrics at [address] [address] Cris Dawson MD [facility] DR PEDIATRICS DEPT [place] [id number] Social History Tobacco Use Types Packs/Day Years [...] on filedocumented in this encounter Care Teams Asbestos Microscopist Relationship Specialty Start Date End Date Kirt Mcgill MD [address] [place], [place] [id number] PCP - General 11/09/11 07/19/16 documented as of this encounter
--- OUTSIDE RECORDS SUMMARY | 2024-03-18 11:32 | XMS_ITS | Encounter Summary ---
Author Organization [facility] [address] Care Team Providers Care Emergency Room Tech Name Role Phone Kirt Mcgill MD Primary Care Provider [phone] Encounter Details Date Type Department Care Team (Late st Contact Info) Description 03/29/2012 External Results Pediatrics at [address] [address] Cris Dawson MD [facility] [place] [address] Obesity Social History Tobacco Use Types Packs/Day Years [...] Procedure Name Priority Date/Time Associated Diagnosis Comments CMP W/FASTING GLUCOSE Routine 03/21/2012 Obesity LIPID PANEL (REFLEX DIRECT LDL) Routine 03/21/2012 Obesity documented in this encounter Results * (ABNORMAL) CMP w/fasting Glucose (03/21/2012) Glucose Fasting 87(Septic Tank Servicer al Lab) Blood Urea Nitrogen 13(Septic Tank Servicer al Lab) Creatinine 0.5(Exter nal Lab) Aspartate Aminotransferase 27(Septic Tank Servicer al Lab) 2 - 40 Alanine Aminotransferase 32(COMPLIANCE MGR AL/ABN) 3 - 30 Blood specimen (specimen) Cris Dawson MD CHEMISTRY ORDERABLES * (ABNORMAL) Lipid panel (fasting) (03/21/2012) Cholesterol, Total 176(Exter nal Lab) mg/dL Triglyceride 63(Septic Tank Servicer al Lab) mg/dL HDL Cholesterol 29(COMPLIANCE MGR AL/ABN) md/dL LDL Cholesterol 135(EXTER NAL/ABN) mg/dL Blood specimen (specimen) Cris Dawson MD CHEMISTRY ORDERABLES documented in this encounter Visit Diagnoses Diagnosis Obesity Obesity, unspecified documented in this encounter Care Teams Emergency Room Tech Relationship Specialty Start Date End Date Kirt Mcgill MD [address] [place] [address] PCP - General 11/09/11 07/19/16 documented as of this encounter
--- OUTSIDE RECORDS SUMMARY | 2024-03-18 11:32 | XMS_ITS | Encounter Summary ---
Author Organization [facility] [place] [address] Care Team Providers Care Glassware Verifier Name Role Phone Cameron Brooke MD Primary Care Provider [phone] Reason for Referral * Consultation (Routine) - Declined by Patient Specialty Diagnoses / Procedures Referred By Contac t Referred To Contact Sleep Center Diagnoses Asthma BMI, pediatric, 99th percentile or greater for age Kenya Gorman MD [facility] [place] [address] [facility] Sleep Medicine [address] [place] [address] Referral ID Status Reason Start Date Expiration Date Visits Requested Visits Authorized [id number] Declined by Patient Consult, Test & Treat 04/06/2012 10/03/2012 1 1 Reason for Visit * Reason Comments Follow-up Encounter Details Date Type Department Care Team (Late Contact Info) Description 04/06/2012 11:00 AM EST Follow-Up [place] [id number] Kenya Gorman MD Acanthosis nigricans; Asthma; BMI, pediatric, 99th percentile or greater for [...] Sign Reading Time Taken Comments Blood Pressure 108/64 04/06/2012 10:40 AM EST Pulse 100 04/06/2012 10:40 AM EST Temperature - - Respiratory Rate 22 04/06/2012 10:4 0 AM EST Oxygen Saturation - - Inhaled Oxygen Concentration - - Weight 47.4 kg (104 lb 6.4 oz) 04/06/19 13 10:40 AM EST Height 124.5 cm (4' 1) 04/06/2012 10:4 0 AM EST Body Mass Index 30.57 04/06/2012 10:40 AM EST Body Mass Index Percentile 99.91% 04/06 10:40 AM EST Growth Chart: CDC (Girls, 2- 20 Years) documented in this encounter Progress Notes * Kenya Gorman MD - 04/06/2012 12:19 PM EST 04/06/2012 KENYA GORMAN MD Felipa Brasher Sandra 6 y.o. [phone] Cameron Brooke MD [phone] Tabatha Antunez Reason for Visit: Follow up asthma Interval History: Since she was last seen in October, Felipa has had ongoing asthma problems. She was admitted in [facility] with a respiratory infection, low oxygen saturations and need for albuterol every 2 hours. She was discharged on prednisone and out of school for about 2 weeks. Mother says that the stateof her asthma is not materially better than it was before her last visit. Recently when her class walked from school to the museum, she had to stop because she couldn't catch her breath and an inhaler did not help. She is not missing doses of her maintenance medication. Mother says she breathes like her nose is stopped up al the time. She snores badly and sleeps poorly. She has respiratory pauses at night and often stirs, then starts breathing again. She has been seen in the [facility] clinic and is working on weight control. Her BMI is down slightly, but is still far above the 95th percentile. ROS: Constitutional: negative except obesity Allergy: neg Eye: neg ENT: nasal congestion Respiratory: see above Cardiovascular: neg GI: neg Skin: unchanged Musculoskeletal: neg Neuro/Psych. neg Patient Active Problem List Diagnoses Code ??? Breathing problem 786.00 ??? Asthma 493.90 ??? Acanthosis nigricans 701.2 ??? Exercise counseling V65.41 ??? Dietary counseling and surveillance V65.3 ??? Morbid obesity 278.01 ??? BMI, pediatric, 99th percentile or greater for age V85.54 Current Outpatient Prescriptions on File Prior to [...] to visit. Allergies Allergen Reactions ??? Penicillins CIS - Hives Physical Exam: Filed Vitals: 04/06/12 1040 BP: 108/64 Pulse: 100 Resp: 22 Height: 124.5 cm (4' 1) Weight: 47.356 kg (104 lb 6.4 oz) General: Well developed, obese school aged female in no distress; interactive and answers questionsappropriately. Eyes: Conjunctivae clear; no discharge ENT: TM's clear bilaterally; oropharynx clear; tonsils 2+ and not inflamed; nares patent with pink nasal mucosa; turbinates moderately boggy Neck: Supple without adenopathy Chest: No increased AP diameter or increased work of breathing; thorax symmetrical; good excursion. Lungs: Breath sounds equal; good air exchange; no rales or wheezes bilaterally. Cardiovascular: RSR without murmur; pulses equal and full. Extremities: No digital clubbing. Neurological: No obvious deficit Skin: No rashes or excoriations PFT: FVC 1.65 L (103%predicted); FEV 1 1.27 L (89%); FEV 1/FVC 0.77; FEF 25/75 1.09 L/S (59%) Mild obstruction, slightly improved from last visit; after Duoneb treatment there was a 9% improvement in FEV 1 and 34% improvement in FEF 25/75 with a normal postbronchodilator study Asthma Control Test score = 12 = poor control; points off for asthma being a big problem with exercise, coughing due to asthma most of the time, waking at night some of the time, daytime sx/ daytime wheeze, night time waking 11-18 days in last 4 weeks. Assessment: 1. ASthma, persistent, with poor control 2. Obesity 3. Nasal congestion 4. Sleep disordered breathing with concern for sleep apnea Plan: 1. Continue Advair 115/21 2 puffs BID and Singulair 5 mg daily 2. Because there is measurable improvement in PFT with Duoneb treatment, we will try Combivent 2 puffs before exercise and as her primary rescue medication 3. Asthma Action Plan amended and copies given to mother for home and school 4. Referral to the sleep center for evaluation; if indicated after sleep study, consideration will be given for ENT referral, also 5. Return in 2 mos for reevaluation; call sooner for concerns ASTHMA ACTION PLAN Name: Felipa Flores Date of : 2005 Primary Care Physician: CAMERON BROOKE MD Asthma Specialist: Kenya Gorman MD Parent/Guardian: Sonali Ellis (home) Asthma Type: Allergy /Triggers: Allergy /Triggers: Excercise induced Cigarette Smoke x Dust Mites Intermittent Wood Smoke Animals Mild Persistent Viral infections x Weeds Moderate Persistent x Exercise x Grasses Severe Persistent Acid Reflux Trees Weather Conditions x Molds Flu Vaccine: 11/09/11 GO You have all of these Breathing good No cough or wheeze Sleep through the night Can work and play Medicine How much How often Daily: 2 puffs Advair 115/21 Twice daily Singulair 5mg Once daily 1 spray Flonase Once daily Rescue: Combivent 2 puffs prior to exercise and as needed cough CAUTION You have any of these First signs of cold Cough Mild Wheeze Tight Chest Coughing at night Medicine How much How often Daily medicines and then: Combivent 2 puffs 3-4 times daily IF NOT BETTER in 24-48 hrs, CALL YOUR HEALTH CARE PROVIDER STOP Your asthma is getting worse fast Medicine is not helping Breathing is hard and fast Nose opens wide May/may not wheeze or cough Can't talk well TAKE THESE MEDICINES AND CALL YOUR DOCTOR Medicine How much How often Combivent 4 puffs NOW and repeat in 20-30 minutes Call your Physician: If not responding promptly to treatment will need to call for further instructions or go to ED documented in this encounter Plan of Treatment Scheduled Referrals Name Type Priority Associated Diagnoses Orde r Schedule Referral to Sleep Disorders Center Outpatient Referral Routine Asthma BMI, pediatric, 99th percentile or greater for age Ordered: 04/06/2012 documented as of this encounter Visit Diagnoses Diagnosis Acanthosis nigricans Acquired acanthosis nigricans Asthma Unspecified asthma BMI, pediatric, 99th percentile or greater for age Body Mass Index, pediatric, greater than or equal to 95th percentile for age documented in this encounter Administered Medications Inactive Administered Medications - up to 3 most recent administrations Medication Order MAR Action Action Date Dose Rate Site ipratropium-albuterol (DUONEB) 0.5 mg-3 mg(2.5 mg base)/3 mL nebulizer solution 3 mL 3 mL, Nebulization, ONCE, 1 dose, On Mon04/06/12 at 1200, Routine Given 04/06/2012 2:48 PM EST 3 mLs documented in this encounter Care Teams Glassware Verifier Relationship Specialty Start Date End Date Cameron Brooke MD [address] [place] [address] PCP - General 11/09/11 07/19/16 documented as of this encounter
--- OUTSIDE RECORDS SUMMARY | 2024-03-18 11:32 | XMS_ITS | Clinical Summary ---
Author Organization [facility] Address [address] [place] [address] Care Team Providers Care Comb Winder Name Role Phone Unavailable Primary Care Provider Unavailabl e Social History Tobacco Use Types Packs/Day Years Used Date Smoking Tobacco: Never Assessed Comments Unknown Sex and Gender Information Value Date Recorded Sex Assigned at Not on file Legal Sex Female 12:16 EDT Gender Identity Not on file Sexual Orientation Not on file Plan of Treatment Health Maintenance Due Date Last Done Comments Hepatitis C Screen 2003 Hepatitis B Vaccine (1 of 3 - 19+ 3-dose series) 09/29 COVID-19 Vaccine ( season) 2023
--- OUTSIDE RECORDS SUMMARY | 2024-03-18 11:32 | XMS_ITS | Encounter Summary ---
Author Organization [facility] [place] [address] Care Team Providers Care Ship Painter Helper Name Role Phone María Irizarry MD Primary Care Provider [phone] Encounter Details Date Type Department Care Team (Late st Contact Info) Description 12/19/2004 Orders [place] [address] Kenyatta Nava MD Social History Tobacco Use Types Packs/Day Years Used Date Smoking Tobacco: Never Assessed Sex and Gender Information Value Date Recorded Sex Assigned at Not on file Gender Identity Not on file Sexual Orientation Not on file documented as of this encounter Plan of Treatment Not on file documented as of this encounter Procedures Procedure Name Priority Date/Time Associated Diagnosis Comments SURGICAL PATHOLOGY REPORT Routine 12/20/2004 6:37 PM EST documented in this encounter Results * Surgical Pathology Report (12/20/2004 6:37 PM EST) Surgical Pathology Report [id number] ? Location: [place]; [facility]; A The signing pathologist has (i) examined the relevant preparation(s) for the specimen(s) and (ii) rendered or confirmed the diagnosis(es). . ?Pathology Surgical Pathology Final Report Clinical Information Specimen Submitted: A - Appendix, abd Clinical History: Retrocecal abscess Gross Description Labeled/Fixative: ? Appendix, abd; fresh. Qty/Size/Weight: ?Single, 2.5 x 1.8 x 1.1 cm. Tissue Description: ?? Surface: ? The appendix is received in a coiled configuration ? with adhesions and fibrinous exudate. ??The ?surface is dusky, hemorrhagic, and purulent. ?? Wall: ?Edematous and ranges from 0.2 cm to less than 0.1 cm ?in diameter. ??No perforations are noted. ?? Lumen: ? No obstructing material/body. Sections/Processing : ??(R2) ??aje/NS Microscopic Description Slides reviewed, microscopic description not recorded. Diagnosis Appendix; appendectomy: ?? Acute appendicitis with periappendicitis and abscess formation. CR-0 12/23/04 [facility] 12/23/04 Verified by: ? Keyona Gil MD ?Pathologist ?(Electronic Signature) The attending pathologist whose signature appears on this report has reviewed all diagnostic slides and has edited the gross and/or microscopic portion of the report in rendering the final pathologic diagnosis. ALYSON ALMONTE 12/20/2004 6:37 PM EST Kenyatta Nava MD PATHOLOGY/CYTOLOGY O RDERABLES ALYSON ALMONTE documented in this encounter Visit Diagnoses Not on filedocumented in this encounter Care Teams Ship Painter Helper Relationship Specialty Start Date End Date María Irizarry MD [address] [place] [address] PCP - General Pediatrics 12/17/21 documented as of this encounter
--- OUTSIDE RECORDS SUMMARY | 2024-03-18 11:32 | XMS_ITS | Encounter Summary ---
Author Organization [facility] Address [facility] [place] [address] Care Team Providers Care Flatwork Feeder Name Role Phone Kirt Mcgill MD Primary Care Provider [phone] Encounter Details Date Type Department Care Team (Latest Contact Info) Description 11/09/2011 11:17 AM EDT - 11/09/2011 11:59 PM EDT Hospital Encounter XRay at [address] [place] [address] CLINIC, Kenya Curtis MD Asthma Discharge Disposition: Home Social History Tobacco Use Types Packs/Day Years Used Date Smoking Tobacco: Passive Smo ke Exposure - Never Smoker Comments:mother smokes outsi de Sex and Gender Information Value Date Recorded Sex Assigned at Not on file Gender Identity Not on file Sexual Orientation Not on file documented as of this encounter Medications at Time of Discharge Medication Sig Dispensed Refills Start Date End Date montelukast (SINGULAIR) 5 mg chewable tablet Take 5 mg by mouth nightly. fluticasone (FLONASE) 50 mcg/actuation nasal spray 1 spray by Each Nare route nightly. 01/19/2022 fluticasone-salmeterol (ADVAIR HFA) 115-21 mcg/actuation inhalerIndications:Asthm a Inhale 2 puffs into the lungs 2 times daily. 1 Inhaler 12 11/09/2011 01/18/2022 documented as of this encounter Plan of Treatment Not on file documented as of this encounter Procedures Procedure Name Priority Date/Time Associated Diagnosis Comments XR CHEST PA AND LATERAL Routine 11/09/2011 11:32 AM EDT Asthma documented in this encounter Results * XR chest routine PA & lateral [...] documented in this encounter Visit Diagnoses Diagnosis Asthma Unspecified asthma documented in this encounter Care Teams Flatwork Feeder Relationship Specialty Start Date End Date Kirt Mcgill MD [address] [place] [address] PCP - General 11/09/11 07/19/16 documented as of this encounter
--- OUTSIDE RECORDS SUMMARY | 2024-03-18 11:33 | XMS_ITS | Encounter Summary ---
Author Organization [facility] Address [address] [place] [address] Care Team Providers Care Database Modeler Name Role Phone Unavailable Primary Care Provider Unavailabl e Encounter Details Date Type Department Care Team (Late st Contact Info) Description 11/24/2020 Lab Requisition [facility] Pathology & Laboratory Medicine - [facility] [address] [place] [address] Outr Resulting Lab, Provider Social History Tobacco Use Types Packs/Day Years [...] Procedure Name Priority Date/Time Associated Diagnosis Comments Z[facility]COVID-19 TEST [facility] Today 11/23/2020 16:25 EDT COVID-19 TESTING Routine 11/23/2020 16:2 5 EDT documented in this encounter Results * COVID-19 TEST [facility] LAB PCR (11/23/2020 16:25 EDT) Swab ENTIRE NASOPHARYNX / Unknown 11/23/2020 16:25 EDT 11/24/2020 16:46 EDT us Provider Outr Resulting Lab MICROBIOLOGY - GENER AL ORDERABLES Final Result [facility] [address] [place] [address] * COVID-19 TESTING (11/23/2020 16:25 EDT) COVID-19 rt-PCR Result Negative Negative 11/25/2020 15:[address] [facility] Comment: This test has not been FDA cleared or approved. This test has been authorized by FDA under an EUA for use by authorized laboratories. This test has been authorized only for detection of nucleic acid from 2019-nCoV, not for any other viruses or pathogens. This test is only authorized for the duration of the declaration that circumstances exist justifying the authorization of emergency use of in vitro diagnostic tests for detection and/or diagnosis of 2019-nCoV under section 564(b)(1) of Act, 21 U.S.C ?? 360bbb-3(b) (1), unless the authorization is terminated or revoked sooner. Negative results do not preclude 2019-nCoV infection and should not be used as the sole basis for treatment or other patient management decisions. Negative results must be combined with clinical observations, patient history, and epidemiological information. This test was developed and its performance characteristics determined by [facility]. It has not been cleared or approved by the US Food and Drug Administration. FDA does not require this test to go through premarket FDA review. This test is used for clinical purposes. It should not be regarded as investigational or for research. This laboratory is certified under the Clinical Laboratory Improvement Amendments (CLIA) as qualified to perform high complexity clinical laboratory testing. This test is based on the CDC COVID-19 Emergency Use Authorization (EUA) assay, with minor modification as defined by the FDA Performed on the [employer] 7 Pro RT-PCR System. Performing Lab [facility] 11/25/2020 15:[address] [facility] Swab 11/23/2020 16:2 5 EDT 11/24/2020 16:46 EDT us Provider Outr Resulting Lab MICROBIOLOGY - GENER AL ORDERABLES Final Result [facility] [address] [place] [address] documented in this encounter Visit Diagnoses Not on filedocumented in this encounter
--- OUTSIDE RECORDS SUMMARY | 2024-03-18 11:33 | XMS_ITS | Encounter Summary ---
Author Organization [facility] Address [address] [place] [address] Care Team Providers Care Cooperage Shop Supervisor Name Role Phone Unavailable Primary Care Provider Unavailabl e Encounter Details Date Type Department Care Team (Late st Contact Info) Description 11/11/2020 Lab Requisition [facility] Pathology & Laboratory Medicine - [facility] [address] [place] [address] Outr Resulting Lab, Provider Social History Tobacco [...] Procedure Name Priority Date/Time Associated Diagnosis Comments STEPHANIE-ANDERSON PANEL Routine 11/10/2020 16 :25 EDT documented in this encounter Results * STEPHANIE-ANDERSON PANEL (11/10/2020 16:25 EDT) EBV VCA IgM, Antibody Negative Negative 11/13/2020 11:16 EDT [facility] Comment:Absence of detectabl e VCA IgM antibodies. EBV VCA IgG, Antibody Negative Negative 11/13/2020 11:16 EDT [facility] Comment:Absence of detectabl e VCA IgG antibodies. EBNA IgG Antibody Negative Negative 11:16 T [facility] Comment:Absence of detectabl e EBNA IgG anibodies. EBV Interpretation Results would indicate no previous exposure to Stephanie-Bar r virus 11/13/2020 11:16 EDT [facility] Blood VENOUS BLOOD / Unknown 11/10/2020 16:25 EDT 11/11/2020 16:40 EDT us Provider Outr Resulting Lab IMMUNOLOGY AND SEROL OGY ORDERABLES Final Result Performing Organization Address City/State/[facility] Co de Phone Number [facility] [address] [place] [address] documented in this encounter Visit Diagnoses Not on filedocumented in this encounter
--- OUTSIDE RECORDS SUMMARY | 2024-03-18 11:33 | XMS_ITS | Encounter Summary ---
Author Organization [facility] Address [address] [place] [address] Care Team Providers Care Beach Expert Name Role Phone Unavailable Primary Care Provider Unavailabl e Encounter Details Date Type Department Care Team (Late st Contact Info) Description 10/27/2020 Lab Requisition [facility] Pathology & Laboratory Medicine - [facility] [address] [place] [address] Outr Resulting Lab, Provider Social History Tobacco [...] Priority Date/Time Associated Diagnosis Comments [facility]COVID-19 TEST [facility] Today 10/26/2020 15:10 EDT COVID-19 TESTING Routine 10/26/2020 15:1 0 EDT documented in this encounter Results * COVID-19 TEST [facility] LAB PCR (10/26/2020 15:10 EDT) Swab ENTIRE NASOPHARYNX / Unknown 10/26/2020 15:10 EDT 10/27/2020 15:34 EDT us Provider Outr Resulting Lab MICROBIOLOGY - GENER AL ORDERABLES Final Result [facility] [address] [place] [address] * COVID-19 TESTING (10/26/2020 15:10 EDT) COVID-19 rt-PCR Result Negative Negative 10/28/2020 13:28 EDT [facility] Comment: This test has [...] developed and its performance characteristics determined by [facility]. It has not been cleared or approved [...] testing. This test is based on the [facility] COVID-19 Emergency Use Authorization (EUA) assay, with minor modification as defined by the FDA Performed on the [employer] 7 Flex RT-PCR System. This test was developed and its performance characteristics determined by [facility]. It has not been cleared or approved [...] testing. This test is based on the [facility] COVID-19 Emergency Use Authorization (EUA) assay, with minor modification as defined by the FDA Performed on the [employer] 7 Pro RT-PCR System. Performing Lab [facility] 10/28/2020 13:28 EDT [facility] Swab 10/26/2020 15:1 0 EDT 10/27/2020 15:34 EDT us Provider Outr Resulting Lab MICROBIOLOGY - GENER AL ORDERABLES Final Result [facility] [address] [place] [address] documented in this encounter Visit Diagnoses Not on filedocumented in this encounter
--- OUTSIDE RECORDS SUMMARY | 2024-03-18 11:33 | XMS_ITS | Encounter Summary ---
Author Organization [facility] Address [address] [place] [address] Care Team Providers Care Dyed Raw Stock Blower Feeder Name Role Phone Unavailable Primary Care Provider Unavailabl e Encounter Details Date Type Department Care Team (Late st Contact Info) Description 12/21/2020 Lab Requisition [facility] Pathology & Laboratory Medicine - [facility] [address] [place] [address] Outr Resulting Lab, Provider Social History Tobacco [...] Priority Date/Time Associated Diagnosis Comments ZZCOVID-19 TEST [facility] LAB PCR Today 12/21/2020 11:45 EST COVID-19 TESTING Routine 12/21/2020 11:4 5 EST documented in this encounter Results * COVID-19 TEST [facility] LAB PCR (12/21/2020 11:45 EST) Swab 12/21/2020 11:4 5 EST 12/21/2020 21:58 EST us Provider Outr Resulting Lab MICROBIOLOGY - GENER AL ORDERABLES Final Result [facility] [address] [place] [address] * COVID-19 TESTING (12/21/2020 11:45 EST) COVID-19 rt-PCR Result Negative Negative 12/22/2020 16:17 EST [facility] Comment: This test has [...] clinical observations, patient history, and epidemiological information. Testing was performed using the robin SARS-CoV-2 assay ([employer] on the Robin 6800 System Performing Lab [facility] [address] [facility] 12/22/2020 16:17 EST [facility] Swab 12/21/2020 11:4 5 EST 12/21/2020 21:58 EST us Provider Outr Resulting Lab MICROBIOLOGY - GENER AL ORDERABLES Final Result [facility] [address] [place] [address] documented in this encounter Visit Diagnoses Not on filedocumented in this encounter
[2024-03-18] MEDS: Ibuprofen 600 MG TAB PO (11:39)
[2024-03-18] MEDS: Acetaminophen 500 MG TAB 1000 MG PO (11:39)
[2024-03-18 11:43] VITALS: PULSE 110; TEMP 37.8
[2024-03-18 11:55] LABS: COVID-19 PCR Negative (Negative); Influenza A PCR Negative (Negative); Influenza B PCR Negative (Negative); RSV PCR Negative (Negative)
[2024-03-18 11:56] LABS: Source Nasopharynx
== END 2024-03-18 11:54 | disposition home or self-care (01) ==
PROVIDERS: Student in an Organized Health Care Education/Training Program; Emergency Provider Emergency Medicine; PCP Student in an Organized Health Care Education/Training Program
DX: J06.9 Acute upper respiratory infection, unspecified (principal); H66.92 Otitis media, unspecified, left ear; R05.1 Acute cough
CPT/HCPCS: 87637; 99283

== ENCOUNTER 2024-03-20 15:50 | Emergency (ER) | payer MEDICAID, SELFPAY ==
[2024-03-20 16:02] VITALS: BP 151/104; PULSE 102; RESP 16; TEMP 36.3; O2SAT 97
--- OUTSIDE RECORDS SUMMARY | 2024-03-20 16:03 | XMS_ITS | Encounter Summary ---
Author Organization [facility] [place] [address] Care Team Providers Care Clock And Watch Hands Painter Name Role Phone Carley Carbajal MD Primary Care Provider [phone] Reason for Visit * Reason Onset Date Comments Results 10/28/2016 Encounter Details Date Type Department Care Team (Late st Contact Info) Description 10/28/2016 Telephone Pediatric [place] [address] Birdie Harrison MD Results Social [...] on filedocumented in this encounter Care Teams Clock And Watch Hands Painter Relationship Specialty Start Date End Date Carley Carbajal MD [address] [place] [address] PCP - General Pediatrics 07/20/16 12/16/21 documented as of this encounter
--- OUTSIDE RECORDS SUMMARY | 2024-03-20 16:03 | XMS_ITS | Encounter Summary ---
Author Organization [facility] Address [facility] [place] [address] Care Team Providers Care Pari Mutual Ticket Checker Name Role Phone Carley Carbajal MD Primary Care Provider [phone] Reason for Visit * Consultation (Routine) - Closed Specialty Diagnoses / Procedures Referred By Noreen farooq Referred To Contact Maxillofacial Surgery Diagnoses eval # 1 16 17 32 for extrqaction PANO 02/10/2021 [place] [address] [facility] Maxillo Surg [address] [place] [phone] Referral ID Status Reason Start Date Expiration Date Visits Re quested Visits Authorized [id number] Closed 02/17/2021 02/17/2022 1 1 Encounter Details Date Type Department Care Team (Late st Contact Info) Description 07/30/2021 9:30 AM EDT Office Visit [place] [phone] Figueroa Jones MD [facility] [place] [address] Dental impaction Social History Tobacco Use Types [...] 10:12 AM This note may have incorporated [id number] technology and though reviewed typographical or syntax errors may remain. documented in this encounter Plan of Treatment Not on file documented as of this encounter Visit Diagnoses Diagnosis Dental impaction Disturbances in tooth eruption documented in this encounter Care Teams Pari Mutual Ticket Checker Relationship Specialty Start Date End Date Carley Carbajal MD [address] [place] [address] PCP - General Pediatrics 07/20/16 12/16/21 documented as of this encounter
--- OUTSIDE RECORDS SUMMARY | 2024-03-20 16:03 | XMS_ITS | Encounter Summary ---
Author Organization [facility] [place] [address] Care Team Providers Care Garment Tag Stringer Name Role Phone María Irizarry MD Primary Care Provider [phone] Reason for Visit * Auth/Cert Specialty Diagnoses / Procedures Referred By Noreen farooq Referred To Contact Diagnoses Impacted teeth Procedures PRO IMPACT TOOTH REMOV COMP BONY PRO ANESTH, PROCEDURE ON MOUTH SURGICAL EXTRACTIONS, REMOVAL OF IMPACTED TOOTH, COMPLETELY BONY (WRVU 1.93) Figueroa Jones MD [facility] [address] [facility] Referral ID Status Reason Start Date Expiration Date Visits Re quested Visits Authorized [id number] 1 1 Encounter Details Date Type Department Care Team (Late st Contact Info) Description 01/19/2022 10:45 AM EST - 01/19/2022 12:15 PM EST Surgery [place] [address] Figueroa Jones MD [facility] [place] [address] SURGICAL EXTRACTIONS, REMOVAL OF IMPACTED TOOTH, COMPLETELY [...] 01/19/2022 9:3 8 AM EST Growth Chart: [facility] (Girls, 2- 20 Years) documented in this [...] may be helpful. Most swelling will occur [id number] hours following the procedure. Mouth Rinse: Vigorous [...] 8am-5pm M-F please call our office at [phone] otherwise call the main number [phone] and ask to connect with Dr. Jones and if no response within 30 minutes please call and ask to speak with the ENT resident infection prevention coordinator. documented in this encounter Medications at Time of Discharge Medication Sig Dispensed Refills Start Date End Date HYDROcodone-acetaminop hen (Weldon) 5-325 mg Tablet Take 1-2 tablets by [...] Jones MD - 01/19/2022 10:58 AM EST [facility] Operative Note Patient Name: Felipa Flores : [id number] MR#: [id number] Case Date: 01/19/2022 Surgeon: Surgeon(s) and Role: [...] and draped in the standard fashion for oral surgery technician. The oral cavity was suctioned and an [...] 5% 50 mL infusion 600 mg, Intravenous, CARTON MACHINE OPERATOR TO O.R., 1 dose, On Mon01/19/22 at [...] RN) documented in this encounter Care Teams Garment Tag Stringer Relationship Specialty Start Date End Date María Irizarry MD [facility] [place] [address] PCP - General Pediatrics 12/17/21 documented as of this encounter
--- OUTSIDE RECORDS SUMMARY | 2024-03-20 16:03 | XMS_ITS | Encounter Summary ---
Author Organization [facility] [place] [address] Care Team Providers Care Admissions Representative Name Role Phone Carley Carbajal MD Primary Care Provider [phone] Encounter Details Date Type Department Care Team (Late st Contact Info) Description 10/24/2016 9:45 AM EDT - 10/24/2016 10:30 AM EDT Surgery [place] [phone] Birdie Harrison MD UPPER GASTROINTESTINAL ENDOSCOPY,WITH BIOPSY [...] Monday-Monday Your pediatric gastroenteroligist Same Day Endo [phone] Otherwise contact [phone] and ask to speak to the pediatric manager social production internship Follow-up care is a perdue part of [...] Report (10/24/2016 9:50 AM EDT) Final Diagnosis [id number] ? Location: ; 06; A The signing [...] sing: (T1) ??pps 10/26/2016 3:53 PM EDT [facility] GI Biopsy 10/24/2016 9:50 AM EDT 10/24/2016 9:50 AM EDT GI Biopsy 10/24/2016 9:50 AM EDT 10/24/2016 9:50 AM EDT GI Biopsy 10/24/2016 9:50 AM EDT 10/24/2016 9:50 AM EDT Birdie Harrison MD PATHOLOGY/CYTOLOGY O ARIES Performing Organization Address [facility] Co de Phone Number [facility] [place] [address] * Specimen to Pathology (surgical or derm) (10/24/2016 9:50 AM EDT) AP Specimen 10/24/2016 9:50 AM EDT 10/24/2016 9:51 AM EDT Narrative [facility] - 10/24/2016 9:51 AM EDT Specimen requisition ordered. ??Separate Pathology report to follow Birdie Harrison MD PATHOLOGY/CYTOLOGY O ARIES Performing Organization Address [facility] Co de Phone Number [facility] [place] [address] * Specimen to Pathology (surgical or derm) (10/24/2016 9:50 AM EDT) AP Specimen 10/24/2016 9:50 AM EDT 10/24/2016 9:51 AM EDT Narrative [facility] - 10/24/2016 9:51 AM EDT Specimen requisition ordered. ??Separate Pathology report to follow Birdie Harrison MD PATHOLOGY/CYTOLOGY O RDNAHUN Performing Organization Address [facility]/[place]IP [place] [address] * Specimen to Pathology (surgical or derm) (10/24/2016 9:50 AM EDT) AP Specimen 10/24/2016 9:50 AM EDT 10/24/2016 9:51 AM EDT Narrative [facility] - 10/24/2016 9:51 AM EDT Specimen requisition ordered. ??Separate Pathology report to follow Birdie Harrison MD PATHOLOGY/[place] [address] * UPPER GI ENDOSCOPY (10/24/2016 9:31 AM EDT) UPPER GI ENDOSCOPY [facility] Endoscopy Procedure Date: 10/24/2016 9:31 AM ? Patient Name: Felipa Flores ? N: [id number] ? Date of : 2005 ? Age: 11 ? Order #: [id number] ? Instrument Name: [id number] ? Procedure: ? Upper GI endoscopy Indications: ? Heartburn Providers: ? Birdie Harrison MD, Marilou Spann RN, ? Amina Mathias MD: ?Carley Carbajal MD Medicines: ? General Anesthesia Complications: ? No immediate complications. Procedure: ? Pre-Anesthesia Assessment: ? - [place] Protocol: ? - Pre-procedure Verification: Prior ? [...] verified by the physician and the ? laser/electro optics technician in the endoscopy suite. ? The [...] Procedure Code(s): ?? --- Professional --- ? 33843, Esophagogastroduo denoscopy, ? flexible, transoral; with biopsy, ? single or multiple CPT copyright 2016 [employer]. All rights reserved. The codes documented in this report are preliminary and upon program coordinator review may be revised to meet current [...] CRNA) documented in this encounter Care Teams Admissions Representative Relationship Specialty Start Date End Date Carley Carbajal MD [address] [place] [address] [place] [address] PCP - General Pediatrics 07/20/16 12/16/21 documented as of this encounter
--- OUTSIDE RECORDS SUMMARY | 2024-03-20 16:03 | XMS_ITS | Encounter Summary ---
Author Organization [facility] [place] [address] Care Team Providers Care Auxiliary Plant Operator Name Role Phone Carley Carbajal MD Primary Care Provider [phone] Encounter Details Date Type Department Care Team (Late st Contact Info) Description 07/26/2021 Telephone [place] [phone] Erin Davila Social History Tobacco Use Types [...] on filedocumented in this encounter Care Teams Auxiliary Plant Operator Relationship Specialty Start Date End Date Carley Carbajal MD [address] [place], [place] [id number] PCP - General Pediatrics 07/20/16 12/16/21 documented as of this encounter
--- OUTSIDE RECORDS SUMMARY | 2024-03-20 16:03 | XMS_ITS | Encounter Summary ---
Author Organization [facility] [place] [address] Care Team Providers Care Drying Tumbler Operator Name Role Phone María Irizarry MD Primary Care Provider [phone] Encounter Details Date Type Department Care Team (Late st Contact Info) Description 12/17/2021 Telephone Maxillofacial Surgery at [facility] [place] [address] Sherri Salas Social History Tobacco Use Types [...] on filedocumented in this encounter Care Teams Drying Tumbler Operator Relationship Specialty Start Date End Date María [place] [address] PCP - General Pediatrics 12/17/21 documented as of this encounter
--- OUTSIDE RECORDS SUMMARY | 2024-03-20 16:03 | XMS_ITS | Encounter Summary ---
Author Organization [facility] Serafin jessie [place] [id number] Care Team Providers Care Earth Mover Name Role Phone María Irizarry MD Primary Care Provider [phone] Reason for Visit * Auth/Cert Specialty Diagnoses / Procedures Referred By Noreen farooq Referred To Contact Diagnoses Impacted teeth Procedures PRO IMPACT TOOTH REMOV COMP BONY PRO ANESTH, PROCEDURE ON MOUTH SURGICAL EXTRACTIONS, REMOVAL OF IMPACTED TOOTH, COMPLETELY BONY (WRVU 1.93) Figueroa Jones MD [facility] [address] [facility] Referral ID Status Reason Start Date Expiration Date Visits Re quested Visits Authorized [id number] 1 1 Encounter Details Date Type Department Care Team (Latest Contact Info) Description 01/19/2022 9:09 AM EST - 01/19/2022 1:[address] [facility] Hospital Encounter [place] [address] Figueroa Jones MD [facility] [place] [address] Dental impaction Discharge Disposition: Home Social History [...] 01/19/2022 9:3 8 AM EST Growth Chart: [facility] (Girls, 2- 20 Years) documented in this [...] may be helpful. Most swelling will occur omtlnx72-96 hours following the procedure. Mouth Rinse: Vigorous [...] 8am-5pm M-F please call our office at [phone] otherwise call the main number [phone] and ask to connect with Dr. Jones and if no response within 30 minutes please call and ask to speak with the ENT resident biodiesel division manager. documented in this encounter Medications at Time of Discharge Medication Sig Dispensed Refills Start Date End Date HYDROcodone-acetaminop hen (Ashley) 5-325 mg Tablet Take 1-2 tablets by [...] Jones MD - 01/19/2022 10:58 AM EST [facility] Operative Note Patient Name: Felipa Flores : [id number] MR#: [id number] Case Date: 01/19/2022 Surgeon: Surgeon(s) and Role: [...] and draped in the standard fashion for pastoral ministries professor. The oral cavity was suctioned and an [...] 5% 50 mL infusion 600 mg, Intravenous, SIDING INSTALLER TO O.R., 1 dose, On Mon01/19/22 at 1030, Indication for (Active or Suspected): Prophylaxis 1030 (Due) Continuous Medication Order 01/17/2022 01/18/2022 01/19/2022 lactated ringers infusion (CANCELED) 1,000 mL, at 100 mL/hr, Intravenous, CONTINUOUS, Starting on Mon01/19/22 at 1000, Until Mon01/19/22 at 1256, Day of Surgery (Day of Procedure) 0948 ([facility] - Prov ider: Caterina Mitchell RN) PRN [...] RN) documented in this encounter Care Teams Earth Mover Relationship Specialty Start Date End Date María Irizarry MD [address] [place] [address] PCP - General Pediatrics 12/17/21 documented as of this encounter
--- OUTSIDE RECORDS SUMMARY | 2024-03-20 16:03 | XMS_ITS | Encounter Summary ---
Author Organization [facility] [place] [address] Care Team Providers Care Chemist Instrumentation Name Role Phone María Irizarry MD Primary Care Provider [phone] Reason for Visit * Auth/Cert Specialty Diagnoses / Procedures Referred By Noreen farooq Referred To Contact Diagnoses Impacted teeth Procedures PRO IMPACT TOOTH REMOV COMP BONY PRO ANESTH, PROCEDURE ON MOUTH SURGICAL EXTRACTIONS, REMOVAL OF IMPACTED TOOTH, COMPLETELY BONY (WRVU 1.93) Figueroa Jones MD [facility] [place] [address] [facility] Referral ID Status Reason Start Date Expiration Date Visits Re quested Visits Authorized [id number] 1 1 Encounter Details Date Type Department Care Team (Late st Contact Info) Description 01/19/2022 10:39 AM EST Anesthesia [place] [address] Malaika Cabral MD [facility] [place] [address] Anesthesia Record Procedure Summary Procedure Name Responsible [...] cephalic vein (lateral side of arm), right; ftrc-mnz-cxcqvs catheter system; Anatomical Landmarks; 22 gauge; Jarad [...] Procedure Summary Date: 01/19/22 Room / Location: [facility] OR [facility] MAIN OR Anesthesia Start: 1039 Anesthesia Stop: 1145 Procedure: SURGICAL EXTRACTIONS, REMOVAL OF IMPACTED TOOTH, COMPLETELY BONY (WRVU 1.93) (Bilateral)Diagnosis: Dental impaction (Impacted teeth) Surgeons: Figueroa Jones MD Responsible Provider: Malaika Cabral MD Anesthesia Type: general ASA Status: 3 All Anesthesia Providers: Anesthesiologist: Malaika Cabral MD Electric Range Preparer: Vern Perry MD Vitals Value Taken Time BP 140/79 01/19/22 1142 Temp Pulse Resp SpO2 100 % 01/19/22 1145 Pain Level Vitals shown include unvalidated device data. Patient Location: PACU/[facility] Level of Consciousness: Conscious but Sleepy Pain [...] 2.49) performed by Birdie Harrison MD at [facility] ENDOSCOPY ??? TONSILLECTOMY Social History Tobacco Use [...] Adequate IV access anais perry, md Pager [phone] Informed Consent: Anesthetic plan and risks discussed [...] mg documented in this encounter Care Teams Chemist Instrumentation Relationship Specialty Start Date End Date María Irizarry MD [address] [place] [address] PCP - General Pediatrics 12/17/21 documented as of this encounter
--- OUTSIDE RECORDS SUMMARY | 2024-03-20 16:03 | XMS_ITS | Encounter Summary ---
Author Organization [facility] [place] [address] Care Team Providers Care Instantizer Operator Name Role Phone Carley Carbajal MD Primary Care Provider [phone] Encounter Details Date Type Department Care Team (Late st Contact Info) Description 10/24/2016 Orders Only Pediatric [place] [address] Birdie Harrison MD Social History Tobacco Use [...] on filedocumented in this encounter Care Teams Instantizer Operator Relationship Specialty Start Date End Date Carley Carbajal MD [address] [place] [address] [place], [place] [id number] PCP - General Pediatrics 07/20/16 12/16/21 documented as of this encounter
--- OUTSIDE RECORDS SUMMARY | 2024-03-20 16:03 | XMS_ITS | Encounter Summary ---
Author Organization [facility] [place] [address] Care Team Providers Care Procurement Engineer Name Role Phone Carley Carbajal MD Primary Care Provider [phone] Encounter Details Date Type Department Care Team (Late st Contact Info) Description 10/24/2016 Orders Only Pediatric [place] [address] Birdie Harrison MD Social History Tobacco Use [...] on filedocumented in this encounter Care Teams Procurement Engineer Relationship Specialty Start Date End Date Carley Carbajal MD [address] [place] [address] PCP - General Pediatrics 07/20/16 12/16/21 documented as of this encounter
--- OUTSIDE RECORDS SUMMARY | 2024-03-20 16:03 | XMS_ITS | Encounter Summary ---
Author Organization [facility] [place] [address] Care Team Providers Care Java Lead Engineer Name Role Phone Carley Carbajal MD Primary Care Provider [phone] Encounter Details Date Type Department Care Team (Latest Contact Info) Description 10/24/2016 8:45 AM EDT - 10/24/2016 10:43 AM EDT Hospital En[place] [phone] Birdie Harrison MD Discharge Disposition: Home Social [...] WHEN SHOULD YOU CALL FOR HELP? Call [phone] anytime you think that you need emergency [...] Monday-Monday Your pediatric gastroenteroligist Same Day Endo [phone] Otherwise contact [phone] and ask to speak to the pediatric lock technician occupational health nurse supervisor Follow-up care is a perdue part of [...] Report (10/24/2016 9:50 AM EDT) Final Diagnosis [id number] ? Location: ; [facility]; A The signing pathologist has (i) examined [...] sing: (T1) ??pps 10/26/2016 3:53 PM EDT [facility] GI Biopsy 10/24/2016 9:50 AM EDT 10/24/2016 9:50 AM EDT GI Biopsy 10/24/2016 9:50 AM EDT 10/24/2016 9:50 AM EDT GI Biopsy 10/24/2016 9:50 AM EDT 10/24/2016 9:50 AM EDT Birdie Harrison MD PATHOLOGY/CYTOLOGY O ARIES Performing Organization Address [facility] [place] [address] * Specimen to Pathology (surgical or derm) (10/24/2016 9:50 AM EDT) AP Specimen 10/24/2016 9:50 AM EDT 10/24/2016 9:51 AM EDT Narrative [facility] - 10/24/2016 9:51 AM EDT Specimen requisition ordered. ??Separate Pathology report to follow Birdie Harrison MD PATHOLOGY/CYTOLOGY O ARIES Performing Organization Address City/[facility]/[place] [address] * Specimen to Pathology (surgical or derm) (10/24/2016 9:50 AM EDT) AP Specimen 10/24/2016 9:50 AM EDT 10/24/2016 9:51 AM EDT Narrative [facility] - 10/24/2016 9:51 AM EDT Specimen requisition ordered. ??Separate Pathology report to follow Birdie Harrison MD PATHOLOGY/CYTOLOGY O RDNAHUN Performing Organization Address City/[facility]/ZIP Co de Phone Number [facility] [place] [address] * Specimen to Pathology (surgical or derm) (10/24/2016 9:50 AM EDT) AP Specimen 10/24/2016 9:50 AM EDT 10/24/2016 9:51 AM EDT Narrative [facility] - 10/24/2016 9:51 AM EDT Specimen requisition ordered. ??Separate Pathology report to follow Birdie Harrison MD PATHOLOGY/CYTOLOGY O ARIES [facility] [place] [address] * UPPER GI ENDOSCOPY (10/24/2016 9:31 AM EDT) UPPER GI ENDOSCOPY [facility] Endoscopy Procedure Date: 10/24/2016 9:31 AM ? Patient Name: Felipa Flores ? Date of : 2005 ? Age: 11 ? Order #: [id number] ? Instrument Name: [id number] ? Procedure: ? Upper GI endoscopy Indications: ? Heartburn Providers: ? Birdie Harrison MD, Marilou Spann RN, ? Amina Mathias MD: ?Carley Carbajal MD Medicines: ? General Anesthesia Complications: ? No immediate complications. Procedure: ? Pre-Anesthesia Assessment: ? - Maceo Protocol: ? - Pre-procedure Verification: Prior ? [...] verified by the physician and the ? dairy technician in the endoscopy suite. ? The [...] Procedure Code(s): ?? --- Professional --- ? 42112, Esophagogastroduo denoscopy, ? flexible, transoral; with biopsy, ? single or multiple CPT copyright 2016 [employer]. All rights reserved. The codes documented in this report are preliminary and upon wastewater treatment operator review may be revised to meet current compliance requirements. Attending Participation: ? I personally performed the entire procedure. ? Birdie Harrison MD 10/24/2016 9:53:42 AM Number of Addenda: 0 Note Initiated On: 10/24/2016 9:31 AM PROVATION 10/24/2016 9:31 AM EDT Carley Carbaajl MD GENERAL SURGICAL ORD ERABLES PROVATION documented [...] CRNA) documented in this encounter Care Teams Java Lead Engineer Relationship Specialty Start Date End Date Carley Carbajal MD [address] [place] [address] [place] [address] PCP - General Pediatrics 07/20/16 12/16/21 documented as of this encounter
--- OUTSIDE RECORDS SUMMARY | 2024-03-20 16:03 | XMS_ITS | Encounter Summary ---
Author Organization [facility] Address [facility] [place] [address] Care Team Providers Care White Sourer Name Role Phone Carley Carbajal MD Primary Care Provider [phone] Encounter Details Date Type Department Care Team (Late st Contact Info) Description 10/24/2016 9:28 AM EDT Anesthesia [place] [address] Jailene Merchant MD [facility] [place] [address] Oscar Terrazas CRNA [facility] [place] [address] Anesthesia Record Procedure Summary Procedure Name Responsible [...] 0909; median vein (underside of arm), right; cgbe-wvg-wnipcz catheter system; 22 gauge, 1 in length; intradermal injection; no longer indicated, removed per policy/procedure; 10/24/16; 1036 10/24/16 0909 by Yareli De La Vega RN 10/24/16 1036 by iNesha Correia documented in this encounter Social History [...] Merchant MD - 10/24/2016 10:54 AM EDT [facility] Department of Anesthesiology Post-procedure Note Patient: Felipa Flores Procedure Summary Date Anesthesia Start Anesthesia Stop Room / Location 10/24/16 09 0954 [facility] 1 / [facility] Procedure Diagnosis Surgeon Responsible Provider UPPER GASTROINTESTINAL ENDOSCOPY,WITH BIOPSY SINGLE OR MULTIPLE (WRVU 2.49) (N/A Trunk) Gastroesophageal reflux disease, esophagitis presence not specified (gerd) Birdie Harrison MD Welch, Marnie B, MD All Anesthesia Providers: Anesthesiologist: Jailene Merchant MD LOCATION MANAGER: Oscar Terrazas CRNA Most Recent Vitals: 10/24/16 [...] risks discussed with mother. Plan discussed with LOCATION MANAGER. PAT Staff Note documented in this encounter [...] mL/hr documented in this encounter Care Teams White Sourer Relationship Specialty Start Date End Date Carley Carbajal MD [address] [place], [place] [address] [address] PCP - General Pediatrics 07/20/16 12/16/21 documented as of this encounter
--- OUTSIDE RECORDS SUMMARY | 2024-03-20 16:04 | XMS_ITS | Encounter Summary ---
Author Organization [facility] [place] [address] Care Team Providers Care Supervisor Denture Department Name Role Phone Kirt Mcgill MD Primary Care Provider [phone] Reason for Visit * Reason Onset Date Comments Other 12/26/2011 Encounter Details Date Type Department Care Team (Late st Contact Info) Description 12/26/2011 Telephone Pediatrics at [address] [phone] Kirt Mcgill MD [address] [place] [address] [place], [place] [id number] Other Social History Tobacco Use Types Packs/Day [...] AM EST SEEN BY DR DAWSON THROUGH [facility] MR Presta PROGRAM, SHE REQUESTED BLOOD WORK BE DONE AT LOCAL HOSPITAL BUT HAVING DIFFICULTY GETTING ORDERS THERE. PLEASE CALL MOM TO DISCUSS THANK YOU, EKATERINA documented in this encounter Plan of Treatment Not on file documented as of this encounter Visit Diagnoses Not on filedocumented in this encounter Care Teams Supervisor Denture Department Relationship Specialty Start Date End Date Kirt Mcgill MD [address] [facility] [place] [address] PCP - General 11/09/11 07/19/16 documented as of this encounter
--- OUTSIDE RECORDS SUMMARY | 2024-03-20 16:04 | XMS_ITS | Encounter Summary ---
Author Organization [facility] [place] [address] Care Team Providers Care Telephone Instrument Supervisor Name Role Phone Cameron Brooke MD Primary Care Provider [phone] Reason for Referral * Consultation (Routine) - Declined by Patient Specialty Diagnoses / Procedures Referred By Contac t Referred To Contact Sleep Center Diagnoses Asthma BMI, pediatric, 99th percentile or greater for age Kenya Gorman MD [facility] [place] [address] [facility] [address] [place] [address] Referral ID Status Reason Start Date Expiration Date Visits Requested Visits Authorized [id number] Declined by Patient Consult, Test & Treat 04/06/2012 10/03/2012 1 1 Reason for Visit * Reason Comments Follow-up Encounter Details Date Type Department Care Team (Late Contact Info) Description 04/06/2012 11:00 AM EST Follow-Up [place] [phone] Kenya Gorman MD Acanthosis nigricans; Asthma; BMI, [...] GORMAN MD Felipa Brasher Sandra 6 y.o. [id number] Cameron Brooke MD [phone] Tabatha Antunez Reason for Visit: Follow up [...] again. She has been seen in the [facility] clinic and is working on weight [...] mLs documented in this encounter Care Teams Telephone Instrument Supervisor Relationship Specialty Start Date End Date Cameron Brooke MD [address] [place] [address] PCP - General 11/09/11 07/19/16 documented as of this encounter
--- OUTSIDE RECORDS SUMMARY | 2024-03-20 16:04 | XMS_ITS | Encounter Summary ---
Author Organization [facility] Address [address] [place] [address] Care Team Providers Care Plastic Cnc Machine Operator Name Role Phone Unavailable Primary Care Provider Unavailabl e Encounter Details Date Type Department Care Team (Late st Contact Info) Description 10/27/2020 Lab [facility] Pathology & Laboratory Medicine - [facility] [address] [place] [address] Outr Resulting Lab, Provider Social History Tobacco [...] Priority Date/Time Associated Diagnosis Comments [facility]COVID[facility]19 [facility] Today 10/26/2020 15:10 EDT COVID-19 TESTING Routine 10/26/2020 15:1 0 EDT documented in this encounter Results * COVID-19 TEST [facility] LAB PCR (10/26/2020 15:10 EDT) Swab ENTIRE NASOPHARYNX / Unknown 10/26/2020 15:10 EDT 10/27/2020 15:34 EDT us Provider Outr Resulting Lab MICROBIOLOGY - GENER AL ORDERABLES Final Result [facility] [address] [place] [address] * COVID-19 TESTING (10/26/2020 15:10 EDT) COVID-19 rt-PCR Result Negative Negative 10/28/2020 13:28 EDT [facility] Comment: This test has not [...] developed and its performance characteristics determined by [facility]. It has not been cleared or [...] testing. This test is based on the [facility] COVID-19 Emergency Use Authorization (EUA) assay, with minor modification as defined by the FDA Performed on the [employer] 7 Flex RT-PCR System. This test was developed and its performance characteristics determined by [facility]. It has not been cleared or [...] testing. This test is based on the [facility] COVID-19 Emergency Use Authorization (EUA) assay, with minor modification as defined by the FDA Performed on the [employer] 7 Pro RT-PCR System. Performing Lab [facility] Lab 10/28/2020 13:28 EDT [facility] Swab 10/26/2020 15:1 0 EDT 10/27/2020 15:34 EDT us Provider Outr Resulting Lab MICROBIOLOGY - GENER AL ORDERABLES Final Result [facility] [address] [place] [address] documented in this encounter Visit Diagnoses Not on filedocumented in this encounter
--- OUTSIDE RECORDS SUMMARY | 2024-03-20 16:04 | XMS_ITS | Encounter Summary ---
Author Organization [facility] [place] [address] Care Team Providers Care Telegraph Lineman Name Role Phone Kirt Mcgill MD Primary Care Provider [phone] Reason for Visit * Reason Comments Eye Problem Hx of Lyme Dx and Be lls Palsy on the OS Encounter Details Date Type Department Care Team (Late st Contact Info) Description 10/19/2012 10:15 AM EDT Office [place] [address] Marck Jerez MD [facility] [place] [address] Lyme disease (Primary Dx); Herman's palsy; Decreased [...] loss documented in this encounter Care Teams Telegraph Lineman Relationship Specialty Start Date End Date Kirt Mcgill MD [address] [place] [address] PCP - General 11/09/11 07/19/16 documented as of this encounter
--- OUTSIDE RECORDS SUMMARY | 2024-03-20 16:04 | XMS_ITS | Clinical Summary ---
Author Organization [facility] Address [address] [place] [address] Care Team Providers Care Distribution Warehouse Manager Name Role Phone Unavailable Primary Care Provider [...]
--- OUTSIDE RECORDS SUMMARY | 2024-03-20 16:04 | XMS_ITS | Encounter Summary ---
Author Organization [facility] Address [facility] [place] [address] Care Team Providers Care Squirt Machine Operator Name Role Phone Kirt Mcgill MD Primary Care Provider [phone] Encounter Details Date Type Department Care Team (Latest Contact Info) Description 11/09/2011 11:17 AM EDT - 11/09/2011 11:59 PM EDT Hospital Encounter XRay at [address] [place] [address] CLINIC, Kenya Curtis MD Asthma Discharge Disposition: [...] asthma documented in this encounter Care Teams Squirt Machine Operator Relationship Specialty Start Date End Date Kirt Mcgill MD [address] [place] [address] PCP - General 11/09/11 07/19/16 documented as of this encounter
--- OUTSIDE RECORDS SUMMARY | 2024-03-20 16:04 | XMS_ITS | Encounter Summary ---
Author Organization [facility] [place] [address] Care Team Providers Care Manager Oracle Database Name Role Phone Carley Carbajal MD Primary Care Provider [phone] Encounter Details Date Type Department Care Team (Late st Contact Info) Description 10/03/2016 External Results Pediatric [place] [address] Birdie Harrison MD Social History Tobacco Use [...] filedocumented in this encounter Care Teams Manager Oracle Database Relationship Specialty Start Date End Date Carley Carbajal MD [address] [place] [address] PCP - General Pediatrics 07/20/16 12/16/21 documented as of this encounter
--- OUTSIDE RECORDS SUMMARY | 2024-03-20 16:04 | XMS_ITS | Encounter Summary ---
Author Organization [facility] Address [facility] [place] [address] Care Team Providers Care Sampler Ovens Name Role Phone Roscoe Mcgill MD Primary Care Provider [phone] Reason for Visit * Reason Comments Obesity F/U Encounter Details Date Type Department Care Team (Late st Contact Info) Description 04/19/2012 10:00 AM EST Follow-Up Pediatrics at [address] [address] Cris Dawson MD [facility] [address] [place] [address] Breathing problem (Primary Dx); Asthma; Acanthosis nigricans; [...] and veggies at each meal - a skilled nursing goal would be filling half your plate [...] day. Make media time active if possible (Jukely) Pick several areas to work on - [...] next visit. Cris Dawson MD MPH [facility]-Director, [facility] documented in this encounter Progress Notes * Heidi Gunn I, LD - 04/19/2012 4:29 PM EST [facility] RD [...] mom has reached out to a community beef breaker and I am happy to communicate with [...] current choices. 2) Will anticipate call from beef breaker to help create continuity. Thank you, Heidi Gunn MS RD LD * Cris Dawson MD - 04/19/2012 10:45 AM EST [facility] Visit Date: Sweetie Flores 2005 6 y.o. 6 m.o. None Roscoe Mcgill MD Dr Price, Mark J, MD / None Sweetie Flores was seen in follow up today in the [facility]'s [...] lab. May need [facility]NT referral[facility] I spent a total of 30 minutes with the patient over 50% of which was which was spent in mqzq-pj-ofis discussion/counseling re obesity, nutrition and activity HEALTH [...] Dietary counseling and surveillance ??? Morbid obesity [facility]: [...] 6# 7+3/4 ounces, term baby born at [facility], no breathing problems or meconium at birthImmunizations: [...] working with someone in town - local beef breaker - mom can't remember name - has had one visit - seems like helpful info - is willing to go to store with her Mom was going to have beef breaker call Heidi And in school - 2 nurses [phone] Mrs. Scott she has lunch with once [...] outside reference lab but mildly elevated per [facility] norms - will repeat in 6 months, [...] (LDH) documented in this encounter Care Teams Sampler Ovens Relationship Specialty Start Date End Date Roscoe Mcgill MD [address] [place] [address] PCP - General 11/09/11 07/19/16 documented as of this encounter
--- OUTSIDE RECORDS SUMMARY | 2024-03-20 16:04 | XMS_ITS | Encounter Summary ---
Author Organization [facility] Address [address] [place] [address] Care Team Providers Care Laser Machine Operator Name Role Phone Unavailable Primary Care Provider Unavailabl e Encounter Details Date Type Department Care Team (Late st Contact Info) Description 11/24/2020 Lab Requisition [facility] Pathology & Laboratory Medicine - [facility] [address] [place] [address] Outr Resulting Lab, Provider Social History Tobacco [...] Priority Date/Time Associated Diagnosis Comments [facility]COVID-19 TEST [facility] Today 11/23/2020 16:25 EDT COVID-19 TESTING Routine 11/23/2020 16:2 5 EDT documented in this encounter Results * COVID-19 TEST [facility] LAB PCR (11/23/2020 16:25 EDT) Swab ENTIRE NASOPHARYNX / Unknown 11/23/2020 16:25 EDT 11/24/2020 16:46 EDT us Provider Outr Resulting Lab MICROBIOLOGY - GENER AL ORDERABLES Final Result [facility] [address] [place] [address] * COVID-19 TESTING (11/23/2020 16:25 EDT) COVID-19 rt-PCR Result Negative Negative 11/25/2020 15:29 EDT [facility] Comment: This test has [...] developed and its performance characteristics determined by [facility]. It has not been cleared or [...] defined by the FDA Performed on the (In)Touch Networko 7 Pro RT-PCR System. Performing Lab [facility] Lab 11/25/2020 15:29 EDT [facility] Swab 11/23/2020 16:2 5 EDT 11/24/2020 16:46 EDT us Provider Outr Resulting Lab MICROBIOLOGY - GENER AL ORDERABLES Final Result [facility] [address] [place] [address] documented in this encounter Visit Diagnoses Not on filedocumented in this encounter
--- OUTSIDE RECORDS SUMMARY | 2024-03-20 16:04 | XMS_ITS | Encounter Summary ---
Author Organization [facility] [place] [address] Care Team Providers Care Wool Sacker Name Role Phone Kirt Mcgill MD Primary Care Provider [phone] Encounter Details Date Type Department Care Team (Late st Contact Info) Description 10/12/2012 Abstract [place] [address] Marck Jerez MD [facility] [address] [place] [address] Social History Tobacco Use Types Packs/Day Years [...] on filedocumented in this encounter Care Teams Wool Sacker Relationship Specialty Start Date End Date Kirt Mcgill MD [address] [place] [address] PCP - General 11/09/11 07/19/16 documented as of this encounter
--- OUTSIDE RECORDS SUMMARY | 2024-03-20 16:04 | XMS_ITS | Encounter Summary ---
Author Organization [facility] Address [address] [place] [address] Care Team Providers Care Weight Loss Consultant Name Role Phone Unavailable Primary Care Provider Unavailabl e Encounter Details Date Type Department Care Team (Late st Contact Info) Description 11/11/2020 Lab Requisition [facility] Pathology & Laboratory Medicine - [facility] [address] [place] [address] Outr Resulting Lab, Provider Social History Tobacco [...] IgM, Antibody Negative Negative 11/13/2020 11:16 EDT [facility] Comment:Absence of detectabl e VCA IgM antibodies. EBV VCA IgG, Antibody Negative Negative 11/13/2020 11:16 EDT [facility] Comment:Absence of detectabl e VCA IgG antibodies. EBNA IgG Antibody Negative Negative 11:16 T [facility] Comment:Absence of detectabl e EBNA IgG anibodies. EBV Interpretation Results would indicate no previous exposure to Stephanie-Bar r virus 11/13/2020 11:16 EDT [facility] Blood VENOUS BLOOD / Unknown 11/10/2020 16:25 EDT 11/11/2020 16:40 EDT us Provider Outr Resulting Lab IMMUNOLOGY AND SEROL OGY ORDERABLES Final Result Performing Organization Address City/State/[facility] Co de Phone Number [facility] [address] [place] [address] documented in this encounter Visit Diagnoses Not on filedocumented in this encounter
--- OUTSIDE RECORDS SUMMARY | 2024-03-20 16:04 | XMS_ITS | Referral Summary ---
Author Organization [facility] Address [address] [place] [address] Care Team Providers Care Biofuels Product Manager Name Role Phone Unavailable Primary Care [...]
--- OUTSIDE RECORDS SUMMARY | 2024-03-20 16:04 | XMS_ITS | Encounter Summary ---
Author Organization [facility] Address [address] [place] [address] Care Team Providers Care Crane Ladle Person Name Role Phone Unavailable Primary Care Provider Unavailabl e Encounter Details Date Type Department Care Team (Late st Contact Info) Description 12/21/2020 Lab Requisition [facility] Pathology & Laboratory Medicine - [facility] [address] [place] [address] Outr Resulting Lab, Provider Social History Tobacco [...] Priority Date/Time Associated Diagnosis Comments ZZCOVID-19 TEST [facility] PCR Today 12/21/2020 11:45 EST COVID-19 TESTING Routine 12/21/2020 11:4 5 EST documented in this encounter Results * COVID-19 TEST [facility] LAB PCR (12/21/2020 11:45 EST) Swab 12/21/2020 11:4 5 EST 12/21/2020 21:58 EST us Provider Outr Resulting Lab MICROBIOLOGY - GENER AL ORDERABLES Final Result [facility] [address] [place] [address] * COVID-19 TESTING (12/21/2020 11:45 EST) COVID-19 rt-PCR Result Negative Negative 12/22/2020 16:17 EST [facility] Comment: This test has [...] was performed using the robin SARS-CoV-2 assay ([employer] on the Robin 6800 System Performing Lab Robin 6800 [facility] Lab 12/22/2020 16:17 EST [facility] Swab 12/21/2020 11:4 5 EST 12/21/2020 21:58 EST us Provider Outr Resulting Lab MICROBIOLOGY - GENER AL ORDERABLES Final Result [facility] [address] [place] [address] documented in this encounter Visit Diagnoses Not on filedocumented in this encounter
--- OUTSIDE RECORDS SUMMARY | 2024-03-20 16:04 | XMS_ITS | Encounter Summary ---
Author Organization [facility] Address [facility] [place] [address] Care Team Providers Care Liability Claims Adjuster Name Role Phone Cameron Brooke MD Primary Care Provider [phone] Reason for Visit * Reason Onset Date Comments Referral 06/18/2015 Encounter Details Date Type Department Care Team (Late st Contact Info) Description 06/18/2015 Telephone Weight and Wellness at [address] [phone] Cris Dawson MD [facility] [address] [place] [address] Referral Social History Tobacco Use Types Packs/Day [...] Center Referral Note Name: Felipa Flores MR: [id number] : 2005 Age: 9 y.o. 8 m.o. PCP:CAMERON BROOKE MD BRUSH MAKER:None Note to scheduling: [ x ] scanned labs available for review DiIAGNOSIS / CONCERN: SCHEDULING- PROVIDER: [ ] Hyperlipidemia without elevated BMI: [ ] Irena [ ] Ray [ ] Either [x ] Elevated BMI +/- comorbidities: [ ] Irena [ ] Samir [ x ] Either Additional information: * Telephone Encounter - Bart Skinnre - 06/18/2015 1:20 PM EDT Cris to review documented in this encounter Plan of Treatment Not on file documented as of this encounter Visit Diagnoses Not on filedocumented in this encounter Care Teams Liability Claims Adjuster Relationship Specialty Start Date End Date Cameron Brooke MD [address] [place] [address] PCP - General 11/09/11 07/19/16 documented as of this encounter
--- OUTSIDE RECORDS SUMMARY | 2024-03-20 16:04 | XMS_ITS | Encounter Summary ---
Author Organization [facility] Address [facility] [place] [address] Care Team Providers Care Camp Manager Name Role Phone Kirt Mcgill MD Primary Care Provider [phone] Encounter Details Date Type Department Care Team (Late st Contact Info) Description 03/29/2012 External Results Pediatrics at [address] [address] Cris Dawson MD [facility] [place] [address] Obesity Social History Tobacco Use Types Packs/Day [...] (ABNORMAL) CMP w/fasting Glucose (03/21/2012) Glucose Fasting 87(Manager Strategic al Lab) Blood Urea Nitrogen 13(Manager Strategic al Lab) Creatinine 0.5(Exter nal Lab) Aspartate Aminotransferase 27(Manager Strategic al Lab) 2 - 40 Alanine Aminotransferase 32(SPONGE HOOKER AL/ABN) 3 - 30 Blood specimen (specimen) Cris Dawson MD CHEMISTRY ORDERABLES * (ABNORMAL) Lipid panel (fasting) (03/21/2012) Cholesterol, Total 176(Exter nal Lab) mg/dL Triglyceride 63(Manager Strategic al Lab) mg/dL HDL Cholesterol 29(SPONGE HOOKER AL/ABN) md/dL LDL Cholesterol 135(EXTER NAL/ABN) mg/dL Blood specimen (specimen) Cris Dawson MD CHEMISTRY ORDERABLES documented in this encounter Visit Diagnoses Diagnosis Obesity Obesity, unspecified documented in this encounter Care Teams Camp Manager Relationship Specialty Start Date End Date Kirt Mcgill MD [address] [place] [address] PCP - General 11/09/11 07/19/16 documented as of this encounter
--- OUTSIDE RECORDS SUMMARY | 2024-03-20 16:04 | XMS_ITS | Encounter Summary ---
Author Organization [facility] [place] [address] Care Team Providers Care Agent Based Modeler Name Role Phone Kirt Mcgill MD Primary Care Provider [phone] Encounter Details Date Type Department Care Team (Late st Contact Info) Description 03/19/2012 External Results Pediatrics at [address] [address] Cris Dawson MD [facility] DR PEDIATRICS DEPT [place] [id number] Social History Tobacco Use Types Packs/Day Years [...] on filedocumented in this encounter Care Teams Agent Based Modeler Relationship Specialty Start Date End Date Kirt Mcgill MD [address] [place], [place] [id number] PCP - General 11/09/11 07/19/16 documented as of this encounter
--- OUTSIDE RECORDS SUMMARY | 2024-03-20 16:04 | XMS_ITS | Encounter Summary ---
Author Organization [facility] Address [facility] [place] [address] Care Team Providers Care Fuel Cell Designer Name Role Phone Cameron Mcgill MD Primary Care Provider [phone] Reason for Visit * Reason Comments Obesity Encounter Details Date Type Department Care Team (Late st Contact Info) Description 12/15/2011 11:00 AM EDT Office Visit Pediatrics at [address] [address] Cris Dawson MD [facility] [place] [address] Obesity (Primary Dx); Asthma, moderate persistent, well-controlled; [...] the [employer] [facility]. The goal of the [facility] is to help children and their [...] and veggies at each meal - a termite renewal inspector goal would be filling half your plate [...] school called about she should see her cannon crewmember or been seen sooner in pulmonology here at [facility]. 5. If you could sign a release [...] 1 month Cris Dawson MD MPH Co-Director, [facility], [place] documented in this encounter Progress Notes [...] Dawson MD - 12/15/2011 12:27 PM EDT [facility] Visit Date: Colton Flores 2005 6 y.o. [address] m[address] None MD Dr CAMERON OROZCO MD / None Thank you for referring Britany Ramirez to the [facility] for [...] to bring her on board F/u with [facility] 1 month. Care management will plan to call in 2 weeks to help with health counseling and progress toward goals as described below I spent a total of 60 minutes with the patient over 50% of which was which was spent in [id number] discussion/counseling re obesity, nutrition and activity HEALTH [...] 6# 7+3/4 ounces, term baby born at [facility], no breathing problems or meconium [...] 6# 7+3/4 ounces, term baby born at [facility], no breathing problems or meconium [...] dog who lives inside and is in [facility]'s bedroom. No visible mold, problem with roaches, [...] (ABNORMAL) CMP w/fasting Glucose (03/21/2012) Glucose Fasting 87(Reconditioner al Lab) Blood Urea Nitrogen 13(Reconditioner al Lab) Creatinine 0.5(Exter nal Lab) Aspartate Aminotransferase 27(Reconditioner al Lab) 2 - 40 Alanine Aminotransferase 32(TOBACCO STEMMER AL/ABN) 3 - 30 Blood specimen (specimen) Cris Dawson MD CHEMISTRY ORDERABLES * (ABNORMAL) Lipid panel (fasting) (03/21/2012) Cholesterol, Total 176(Exter nal Lab) mg/dL Triglyceride 63(Reconditioner al Lab) mg/dL HDL Cholesterol 29(TOBACCO STEMMER AL/ABN) md/dL LDL Cholesterol 135(EXTER NAL/ABN) mg/dL [...] unspecified documented in this encounter Care Teams Fuel Cell Designer Relationship Specialty Start Date End Date Cameron Mcgill MD [address] [place] [address] PCP - General 11/09/11 07/19/16 documented as of this encounter
--- OUTSIDE RECORDS SUMMARY | 2024-03-20 16:04 | XMS_ITS | Encounter Summary ---
[place] [address] Care Team Providers Care Television Newscast Director Name Role Phone Carley Carbajal MD Primary Care Provider [phone] Reason for Visit * Reason Comments Gastroesophageal Reflux * Consultation (Routine) - Closed Specialty Diagnoses / Procedures Referred By Contact Referred To Contact Pediatric Gastroenterology Diagnoses constipation - abd pain - obesity Carley Carbajal MD [address] [place] [address] [place] [address] [facility] [address] [place] [address] Referral ID Status Reason Start Date Expiration Date V isits Requested Visits Authorized [id number] Closed Consult, Test & Treat Connection Center 07/20/2016 07/20/2017 1 1 Encounter Details Date Type Department Care Team (Latest Contact Info) Description 09/20/2016 9:00 AM EDT Office Visit [place] [address] Birdie Harrison MD Gastroesophageal reflux [...] 7+3/4 ounces, term baby born at [facility], no breathing problems or meconium [...] >99 %ile based on CDC 2-20 Years [id number]-[id number] data using vitals from 09/20/2016. 8 %ile based on CDC 2-20 Years hfrezkv-ygm-zad data using vitals from 09/20/2016. Vitals: 09/20/16 [...] No rash EXTREMITY:Normal tone/strength b/l, No clubbing [employer]: No focal neurological deficit GENITAL/PERIANAL INSPECTION:deferred A/P: [...] feel free to contact my office at [phone] for further questions and concerns. Sincerely, Birdie [...] obesity documented in this encounter Care Teams Television Newscast Director Relationship Specialty Start Date End Date Carley Carbajal MD [address] [place] [address] PCP - General Pediatrics 07/20/16 12/16/21 documented as of this encounter
--- OUTSIDE RECORDS SUMMARY | 2024-03-20 16:04 | XMS_ITS | Encounter Summary ---
Author Organization [place] [address] Care Team Providers Care Supervisor [employer] Fab[employer]ation Name Role Phone Carley Carbajal MD Primary Care Provider [phone] Reason for Visit * Reason Onset Date Comments Pre Procedure Call 10/21/2016 Encounter Details Date Type Department Care Team (Late st Contact Info) Description 10/21/2016 Telephone Pediatric [place] [address] Birdie Harrison MD Pre Procedure [...] filedocumented in this encounter Care Teams Supervisor [employer] Relationship Specialty Start Date End Date Carley Carbajal MD [address] [place], [place] [address]CHRIS V[place], [place] [id number] PCP - General Pediatrics 07/20/16 12/16/21 documented as of this encounter
--- OUTSIDE RECORDS SUMMARY | 2024-03-20 16:04 | XMS_ITS | Encounter Summary ---
Author Organization [facility] [place] [address] Care Team Providers Care Gravure Printing Machinist Name Role Phone María Irizarry MD Primary Care Provider [phone] Encounter Details Date Type Department Care Team (Late st Contact Info) Description 12/19/2004 Orders [place] [address] Kenyatta Nava MD Social History Tobacco Use [...] 6:37 PM EST) Surgical Pathology Report [id number] ? Location: [place]; [facility]; A The signing pathologist has (i) examined [...] on filedocumented in this encounter Care Teams Gravure Printing Machinist Relationship Specialty Start Date End Date María Irizarry MD [address] [place] [address] PCP - General Pediatrics 12/17/21 documented as of this encounter
--- OUTSIDE RECORDS SUMMARY | 2024-03-20 16:04 | XMS_ITS | Encounter Summary ---
Author Organization [facility] [place] [address] Care Team Providers Care Tobacco Sampler Name Role Phone Kirt Mcgill MD Primary Care Provider [phone] Reason for Visit * Reason Comments Eye Problem Patient here for khadijah l due to lyme disease and bells palsy Encounter Details Date Type Department Care Team (Late st Contact Info) Description 10/31/2012 9:15 AM EDT Office [place] [phone] Yareli Graham MD Morbid obesity; Herman's palsy; [...] disturbances documented in this encounter Care Teams Tobacco Sampler Relationship Specialty Start Date End Date Kirt Mcgill MD [address] [place] [address] PCP - General 11/09/11 07/19/16 documented as of this encounter
--- OUTSIDE RECORDS SUMMARY | 2024-03-20 16:04 | XMS_ITS | Encounter Summary ---
Author Organization [facility] Address [facility] [place] [address] Care Team Providers Care Blood And Plasma Laboratory Assistant Name Role Phone Carley Carbajal MD Primary Care Provider [phone] Reason for Visit * Consultation (Routine) - Closed Specialty Diagnoses / Procedures Referred By Contac t Referred To Contact Weight and Wellness Diagnoses constipation - abd pain - obesity Carley Carbajal MD [address] [place] [address] [place] [address] [facility] [address] [place] [address] Referral ID Status Reason Start Date Expiration Date V isits Requested Visits Authorized [id number] Closed Consult, Test & Treat Connection Center 07/20/2016 07/20/2017 1 1 Encounter Details Date Type Department Care Team (Late st Contact Info) Description 09/20/2016 9:45 AM EDT Office Visit Weight and Wellness at [facility] [address] [place] [address] Cris Dawson MD [facility] [place] [address] Lyndsey Perry, RUDDY Obesity due to excess [...] 100.00% 09/20 10:21 AM EDT Growth Chart: [facility] (Girls, 2- 20 Years) documented in [...] new family media planning tool at the [employer] [place] [employer] https://healthychildren.org/Yemeni/media/pages/default.aspx Nutrition Goals set Today: 1. Replace soda and gatorade with propel water 2. Include fruit and vegetable at each meal 3. Cut down sugary cereal Other issues addressed today: Felipa Flores is at risk for complications of [...] Dawson MD MPH Sav Osborn MD Co-Directors, [facility] Obesity Medicine Certified Lyndsey Doshi RD Registered Dietitian Jeovany Lo RN Registered Nurse documented in this encounter Progress Notes * Cris Dawson MD - 09/20/2016 9:45 AM EDT [facility] Visit Patient Name: Felipa Flores Date of : 2005 Age: 10 y[address]o. [address] Carley Carbajal MD / None Thank you for referring Felipa Flores to the [facility] Clinic[facility] [...] 7+3/4 ounces, term baby born at [facility], no breathing problems or meconium at Immunizations: [...] likes TV, watches for hours a day. [facility] Liv[employer]Healthy: Social HX 09/20/2016 Menses (what [...] / cold / heat -sees pulmonology in [facility] + snoring with sleep apnea, on [...] appreciated Genitalia: deferred Neuro: Alert and oriented. negotiator sales intact, fundi crisp Extremities: No pain, normal [...] will follow these as well. I reviewed AudioName and Womplyplate.gov healthy plate and choose my plate handouts - discussed overall recommendations for healthy food choices with the family as well as metabolic implications of diet and activity choices Felipa was seen by our card hand, Heidi Doshi RD (see attached note) Plan [...] of which was which was spent in [id number] discussion/counseling re obesity, nutrition and activity as well as obesity related co-morbidities * Lyndsey Perry RD - 09/20/2016 9:45 AM EDT [facility] Nutrition Note Assessment/Nutrition Diagnosis: Pt at nutritional risk r/t excessive caloric intake and sub optimalphysical activity as evidenced by BMI and diet recall Height: Weight: >99 %ile based on CDC 2-20 Years BMI-for-age data using YellowSchedules from 09/20/2016. No flowsheet data found. Dietary Recall: Breakfast: Cereal (Fruit Loops) with whole milk AM Snack: none Lunch: Pasta salad (burundian dressing, cheese, pepperoni and pasta) After School Snack: none Dinner: Eggs, sausage, on afghan muffin PM Snack: cotton candy Beverages: Water, 1 can soda, gatorade Initial Nutrition Topics: 1. Decreasing Sugar Sweetened Beverages- limit sweet drinks / choose water instead. Whole fruit is a better choice than fruit juice 2. Increase Fruits and Vegetables- Include fruits and veggies at each meal - a intermediate school teacher goal wouldbe filling half your plate with [...] (LDH) documented in this encounter Care Teams Blood And Plasma Laboratory Assistant Relationship Specialty Start Date End Date Carley Carbajal MD [address] [place] [address] [place] [address] PCP - General Pediatrics 07/20/16 12/16/21 documented as of this encounter
--- OUTSIDE RECORDS SUMMARY | 2024-03-20 16:04 | XMS_ITS | Encounter Summary ---
Author Organization [facility] [place] [address] Care Team Providers Care Electric Train Driver Name Role Phone Kirt Mcgill MD Primary Care Provider [phone] Reason for Visit * Reason Onset Date Comments Referral 11/09/2011 Encounter Details Date Type Department Care Team (Late st Contact Info) Description 11/09/2011 Telephone Pediatric [place] [phone] Kirt Mcgill MD [address] [facility], [place] [phone] Referral Social History Tobacco Use Types Packs/Day [...] on filedocumented in this encounter Care Teams Electric Train Driver Relationship Specialty Start Date End Date Kirt Mcgill MD [address] [place], [place] [id number] PCP - General 11/09/11 07/19/16 documented as of this encounter
--- OUTSIDE RECORDS SUMMARY | 2024-03-20 16:04 | XMS_ITS | Encounter Summary ---
Author Organization [facility] [place] [address] Care Team Providers Care Marketing Technology Specialist Name Role Phone Cameron Brooke MD Primary Care Provider [phone] Reason for Referral * Consultation (Routine) - Closed Specialty Diagnoses / Procedures Referred By Contact Referred To Contact Pediatric Gastroenterology Diagnoses Obesity peds (BMI >=95 percentile) Susan Gary MD [facility] [place] [address] [facility] Pedi Gastro [address] [place] [address] Referral ID Status Reason Start Date Expiration Date V isits Requested Visits Authorized [id number] Closed Consult, Test & Treat 11/09/2011 05/07/2012 1 1 Reason for Visit * Reason Comments Asthma Encounter Details Date Type Department Care Team (Late st Contact Info) Description 11/09/2011 9:00 AM EDT Office Visit Pediatric [place] [phone] Kenya Gomran MD Baker, Dianna G, MD [facility] [place] [address] Asthma (Primary Dx); Obesity peds [...] 11/09/2011 9:0 3 AM EDT Growth Chart: [facility] (Girls, 2- 20 Years) documented in this [...] overalll lifestyle rehabilitation regarding obesity and its medical terminologist implications for her. We will follow closely and work to improve both asthma and overall status. Agree with suggestion [facility] program to accomplish this, although the distance from her home may make regular attendance not feasible. * Susan Gary - 11/09/2011 9:17 AM EDT 11/09/2011 SUSAN GARY MD Felipa Brasher [facility] 6 y.o. [id number] CAMERON BROOKE MD [phone] Tabatha Antunez CC: Uncontrolled asthma despite therapy. [...] weight loss, + weight gain, meeting with hand touch up painter Allergy/Immunology: no runny nose, no teary eyes, [...] 6# 7+3/4 ounces, term baby born at [facility], no breathing problems or meconium at Immunizations: [...] increase in FEV1 and 6% increase in [id number] Interpretation: no significant post bronchodilator increase Xray: [...] in 6 weeks with pediatric [place]ology at [facility] -Recommend healthy living and referral made for [facility]'s [employer]Healthy program in hopes of improving [...] Ragweed 1/2 2. Saline Control 1/2 10. Adair Mix 1/2 3. Birch 1/2 11. Grass [...] Priority Associated Diagnoses Orde r Schedule Referral [facility] Outpatient Referral Routine Obesity peds (BMI [...] Ragweed 1/2 2. ??Saline Control 1/2 ?10. ??Adair Mix 1/2 3. ??Birch 1/2 ?11. ??Grass [...] ??1/2 Interpretation: ??All negative Procedure Note Kenya Goramn MD - 11/09/2011 4:00 PM EDT Allergy Skin Test Results Results recorded as mm wheal/mm flare 1. Histamine 9. Giant Ragweed / 2. Saline Control 02/14 10. Adair Mix 1/2 3. Birch / 11. Grass [...] asthma documented in this encounter Care Teams Marketing Technology Specialist Relationship Specialty Start Date End Date Cameron Brooke MD [address] [place] [address] [place] [address] PCP - General 11/09/11 07/19/16 documented as of this encounter
--- OUTSIDE RECORDS SUMMARY | 2024-03-20 16:04 | XMS_ITS | Encounter Summary ---
[place] [address] Care Team Providers Care City Administrator Name Role Phone Kirt Mcgill MD Primary Care Provider [phone] Encounter Details Date Type Department Care Team (Late st Contact Info) Description 10/30/2012 Telephone Pediatrics at [address] [address] Kirt Mcgill MD [address] [place] [address] Social History Tobacco Use Types Packs/Day [...] on filedocumented in this encounter Care Teams City Administrator Relationship Specialty Start Date End Date Kirt Mcgill MD [address] [facility], [place] [phone] PCP - General 11/09/11 07/19/16 documented as of this encounter
--- OUTSIDE RECORDS SUMMARY | 2024-03-20 16:04 | XMS_ITS | Encounter Summary ---
Author [facility] [place] [address] Care Team Providers Care Life Management Teacher Name Role Phone Kirt Mcgill MD Primary Care Provider [phone] Reason for Referral * Consultation (Routine) - Specialty Diagnoses / Procedures Referred By Contac t Referred To Contact Nutrition Diagnoses Obesity, unspecified obesity severity, unspecified obesity type Bidrie Harrison MD [facility] [address] [place], [place] [id number] [place] [address] Pedi Nutrition [address] [place] [phone] Referral ID Status Reason Start Date Expiration Date V isits Requested Visits Authorized [id number] Continuity of Care 01/14/2016 01/13/2017 1 1 Reason for Visit * Reason Comments Abdominal Pain * Consultation (Routine) - Closed Specialty Diagnoses / Procedures Referred By Contact Referred To Contact Pediatric Gastroenterology Diagnoses R upper quadrant abd pain ? possible fatty liver disease Carley Carbajal MD [address] [place] [address] [place] [address] [facility] Pedi Gastro [address] [place] [phone] Referral ID Status Reason Start Date Expiration Date V isits Requested Visits Authorized [id number] Closed Consult, Test & Treat Connection Center 12/14/2015 12/13/2016 1 1 Encounter Details Date Type Department Care Team (Latest Contact Info) Description 01/14/2016 10:00 AM EST Office Visit Pediatric [place] [address] Birdie Harrison MD Obesity, unspecified obesity severity, [...] EST Growth Chart: [facility] (Girls, 2- 20 Years) documented in this [...] 6# 7+3/4 ounces, term baby born at [facility], no breathing problems or [...] >99 %ile based on CDC 2-20 Years [id number] data using vitals from 01/14/2016. 13 %ile based on CDC 2-20 Years [id number] data using vitals from 01/14/2016. Vitals: 01/14/16 [...] No rash EXTREMITY:Normal tone/strength b/l, No clubbing POT HOLDER BINDER: No focal neurological deficit GENITAL/PERIANAL INSPECTION: No [...] feel free to contact my office at [phone] for further questions and concerns. Sincerely, Birdie [...] specified documented in this encounter Care Teams Life Management Teacher Relationship Specialty Start Date End Date Kirt Mcgill MD [address] [place] [address] PCP - General 11/09/11 07/19/16 documented as of this encounter
--- OUTSIDE RECORDS SUMMARY | 2024-03-20 16:04 | XMS_ITS | Encounter Summary ---
Author Organization [facility] [place] [address] Care Team Providers Care Asset Protection Greeter Name Role Phone Carley Carbajal MD Primary Care Provider [phone] Encounter Details Date Type Department Care Team (Late st Contact Info) Description 2016 External Results Pediatric [place] [address] Birdie Harrison MD Social History Tobacco Use [...] on filedocumented in this encounter Care Teams Asset Protection Greeter Relationship Specialty Start Date End Date Carley Carbajal MD [address] [place] [address] PCP - General Pediatrics 07/20/16 12/16/21 documented as of this encounter
[2024-03-20 16:12] VITALS: BP 151/104; PULSE 102; RESP 16; TEMP 36.3; O2SAT 97
--- NOTE | 2024-03-20 16:13 | ED.GENADUL_ITS ---
Discharge Plan Disposition Patient Disposition: Home Condition: Stable Discharge Details Clinical Impression: Oral aphthous ulcer Primary Care Provider: Alexander Velazquez ED Provider: Adriano Hernandez Home Meds and New Rx's Prescriptions: Continued Nexplanon 68 mg implant 1 implant SBD ONCE albuterol sulfate [ProAir HFA] 90 mcg/actuation HFA aerosol inhaler 2 puff Inhalation Q4H PRN Qty: 1 12RF Patient Comments: Pt unsure when she last used this albuterol sulfate 2.5 MG/3 ML solution for nebulization 2.5 mg Inhalation Q4H PRN Qty: 1 Patient Comments: Pt unsure when she last took this med Rx Instructions: USE PRN COUGH OR WHEEZE escitalopram oxalate 5 mg tablet 5 mg PO DAILY MDD 15mg Qty: 30 3RF Rx Instructions: Take with 10mg for 15mg total escitalopram oxalate 10 mg tablet 10 mg PO DAILY MDD 15mg Qty: 30 2RF azithromycin [Zithromax Z-Jack] 250 mg tablet See Rx Instructions .ROUTE .COMPLEX Qty: 6 0RF Rx Instructions: For 250 mg dose pack: take 500 mg today (day 1), then 250 mg for 4 days (days 2-5) cetirizine 10 mg tablet 10 mg PO DAILY PRNQty: 7 0RF benzonatate 100 mg capsule 100 mg PO BID PRNQty: 7 0RF naproxen 500 mg tablet 500 mg PO BID PRNQty: 7 0RF budesonide-formoterol 80-4.5 mcg/actuation HFA aerosol inhaler 2 puff inhalation Q12H Qty: 10.2 0RF Rx Instructions: 1-2 puffs once to twice daily for maintenance. Discharge Instructions Instructions: Mouth sores Additional Instructions: You were seen in the emergency department for your mild cough, states that you have had some respiratory symptoms that are improving, you likely have a virus. You have canker sores on the underside of your tongue likely result of your viral infection, the white exudative growth on your lingual frenulum is likely due to the inflammation and irritation of these canker sores, it is also possible you have gingivostomatitis, please follow-up with your primary care provider, continue salt water gargles 3 times per day with warm salt water. Your chest x-ray shows no pneumonia, antibiotics are not warranted at this time as you are already on azithromycin which would treat a strep throat which was tested negative today. Please return for any decreased range of motion of jaw, inability tolerate p.o. intake, respiratory distress, profound lethargy. Referrals: Alexander Velazquez [Primary Care Provider] - Discharge Data Discharge Date/Time-TO BE ENTERED AT DEPARTURE: 03/20/24 18:46 HPI General Date/Time Provider Initiated Documentation: 03/20/24 15:53 . HPI Narrative: 18 year-old female presents to ED today by POV/ambulating with a chief complaint of ulcerations to underside of tongue, and a white exudative small growth on her lingual frenulum, with body aches, cough, sore throat, recently seen on 03/18/24 and started on azithromycin with a negative respiratory PCR swab with onset continued, has oral pain. Quality described as small white ulcerations under the tongue, no radiation to chest pain, shortness of breath, trismus, vocal changes, neck swelling, excessive drooling, new sexual partners. Severity is described as mild to moderate. Palliating factors include warm salt water gargles, states her respiratory symptoms have been improving. Provoking factors include nothing specific. Events leading up to the incident/Associated Symptoms: Patient denies history of cold sores. Patient not anticoagulated. Related Data Home Medications ?Medication ?Instructions ?Recorded ?Confirmed albuterol sulfate 2.5 mg/3 mL 2.5 mg inhalation Q4H PRN ##1 05/12/16 03/20/24 (0.083 %) solution for nebulization etonogestrel 68 mg subdermal 1 implant subdermal ONCE 03/14/18 03/20/24 implant (Nexplanon) albuterol sulfate 90 mcg/actuation 2 puff inhalation Q4H PRN ##1 05/08/18 03/20/24 aerosol inhaler (ProAir HFA) escitalopram oxalate 10 mg tablet 10 mg PO DAILY #30 tabs 03/17/23 03/20/24 escitalopram oxalate 5 mg tablet 5 mg PO DAILY #30 tabs 03/17/23 03/20/24 azithromycin 250 mg tablet See Rx Instructions PO .COMPLEX #6 03/18/24 03/20/24 (Zithromax Z-Jack) tabs benzonatate 100 mg capsule 100 mg PO BID PRN #7 caps 03/18/24 03/20/24 budesonide-formoterol HFA 80 2 puff inhalation Q12H #10.2 grams 03/18/24 03/20/24 mcg-4.5 mcg/actuation aerosol inhaler cetirizine 10 mg tablet 10 mg PO DAILY PRN #7 tabs 03/18/24 03/20/24 naproxen 500 mg tablet 500 mg PO BID PRN #7 tabs 03/18/24 03/20/24 Previous Rx's ?Medication ?Instructions ?Recorded albuterol sulfate 90 mcg/actuation 2 puff inhalation Q4H PRN ##1 05/08/18 aerosol inhaler (ProAir HFA) escitalopram oxalate 10 mg tablet 10 mg PO DAILY #30 tabs 03/17/23 escitalopram oxalate 5 mg tablet 5 mg PO DAILY #30 tabs 03/17/23 azithromycin 250 mg tablet See Rx Instructions PO .COMPLEX #6 03/18/24 (Zithromax Z-Jack) tabs benzonatate 100 mg capsule 100 mg PO BID PRN #7 caps 03/18/24 budesonide-formoterol HFA 80 2 puff inhalation Q12H #10.2 grams 03/18/24 mcg-4.5 mcg/actuation aerosol inhaler cetirizine 10 mg tablet 10 mg PO DAILY PRN #7 tabs 03/18/24 naproxen 500 mg tablet 500 mg PO BID PRN #7 tabs 03/18/24 Allergies Allergy/AdvReac Type Severity Reaction Status Date / Time Penicillins Allergy Mild RASH Verified 03/20/24 16:10 ethinyl estradiol (From AdvReac Nausea, Verified 03/20/24 16:10 Xulane) Headache, abdominal pain norelgestromin (From Xulane) AdvReac Nausea, Verified 03/20/24 16:10 Headache, abdominal pain General Stated Complaint: DentalOral KAM: 4 Review of Systems All systems reviewed & are unremarkable except as noted in HPI and below Exam Narrative Exam Narrative: GENERAL APPEARANCE: Well-nourished, non-toxic, awake and alert, atraumatic, no acute distress. SKIN: Warm, pink, dry, intact, without rashes/lesions/ulcerations. HEAD: Normocephalic, atraumatic, normal hair distribution for gender/age. EYES: Normal conjunctiva, no exudates on lids/lashes. ENT: Nares patent, no circumoral cyanosis, no facial swelling, aphthous ulcers present on underside of tongue, a small white exudative growth on the lingual frenulum, no trismus, vocal changes NECK: Supple, trachea midline, painless cervical ROM. LUNGS/CHEST: Lungs CTA bilaterally-no rhonchi/rales/wheezes diffusely, non- labored respirations, normal A/P diameter, symmetrical expansion, no chest wall deformity HEART (CV/PV): Regular rate and rhythm without murmur, no peripheral edema, no JVD. ABDOMEN: Soft, non-distended, no guarding. MSK: Normal ROM, no swelling/deformity to bilateral UEs or LEs, moving all extremities without weakness, no cyanosis, spine midline without tenderness, normal curvature. NEURO: Mental Status AAOx4 - alert to person, place, time, events No facial droop, no forehead involvement. Motor: No focal weakness - strength 5/5 in bilateral UEs and LEs, proximal and distal, symmetric. Sensory: sensation intact to light touch globally. Gait normal: patient ambulated without ataxia into ED room. PSYCH: euthymic, cooperative, pleasant, appropriate speech Course Vital Signs Vital signs: Vital Signs Temperature 36.3 C L 03/20/24 16:02 Pulse 102 H 03/20/24 16:02 Respiratory Rate 16 03/20/24 16:02 Blood Pressure 151/104 H 03/20/24 16:02 Pulse Oximetry 97 03/20/24 16:02 Temperature 36.3 C L 03/20/24 16:12 Temperature Source Oral 03/20/24 16:12 Pulse 102 H 03/20/24 16:12 Respiratory Rate 16 03/20/24 16:12 Blood Pressure 151/104 H 03/20/24 16:12 Blood Pressure Position Sitting 03/20/24 16:12 Pulse Oximetry 97 03/20/24 16:12 Oxygen Delivery Method Room Air 03/20/24 16:12 Oxygen Flow Rate 0 03/20/24 16:12 Pain Level 6 03/20/24 16:12 Comment taking tylenol and respiratory rxs 03/20/24 16:12 Medical Decision Making This dictation utilizes [id number] dictation software and may contain unedited grammatical errors. 18 year-old female presents to ED today by POV/ambulating with a chief complaint of ulcerations to underside of tongue, and a white exudative small growth on her lingual frenulum, with body aches, cough, sore throat, recently seen on 03/18/24 and started on azithromycin with a negative respiratory PCR swab with onset continued, has oral pain. Quality described as small white ulcerations under the tongue, no radiation to chest pain, shortness of breath, trismus, vocal changes, neck swelling, excessive drooling, new sexual partners. Severity is described as mild to moderate. Palliating factors include warm salt water gargles, states her respiratory symptoms have been improving. Provoking factors include nothing specific. Events leading up to the incident/Associated Symptoms: Patient denies history of cold sores. Patients' medical history: Noncontributory. Family and so cial history: Noncontributory. Pertinent exam findings / vital signs include small <0.5cm white exudative growth on lingual frenulum, small apthous ulcerations under the tongue, uvula midline, no tonsillar exduate, no trismus, no cervical lymphadenopathy, lungs CTA. Differential / pathologies of concern include apthous ulcers, viral syndrome, gingivostomatitis, leukoplakia. Diagnostic studies of: -POC Rapid Strep, CXR, POC Upreg. -neg covid/flu -neg strep, culture pending -CXR clear Interventions of: -none. ED Course/Assessment/Plan: 18-year-old female presents with generalized malaise, upper respiratory infectious symptoms negative for COVID and flu, has canker sores on the underside of her tongue and a granulatomous growth on her lingual frenulum, likely apthous ulcers but question primary gingivostomatitis without herpetic oral lesions, may present in next couple days. Recommend continue APAP/NSAID, warm salt water gargles, f/u with ENT for failure to improve in 2 weeks. Return precautions for trismus, vocal changes, severe worsening. Findings not consistent with trismus, herpes lesions, covid/flu, PNA, respiratory distress, [employer]. Disposition of Oral Apthous Ulcer. Patient verbalized understanding of the plan and return to ED criteria and engaged in shared decision making. Medical Records Medical records reviewed: Yes I reviewed the patient's medical records. Imaging Data Radiologic Study: Attestation: I personally reviewed and interpreted this imaging study as follows: Imaging: X-Ray Radiologist's impression: EXAM: XR CHEST 2V PA LATERAL CLINICAL HISTORY: cough TECHNIQUE: 2D digital imaging was performed of the chest. Two images were obtained. PA and lateral views were obtained. COMPARISON: CR ABD FLAT UPRIGHT PA CHEST from 02/21/2017 FINDINGS: MEDIASTINUM: Normal. HEART: Normal. PULMONARY VASCULATURE: Normal. LUNGS: Clear. PLEURAL SPACE: No pleural effusion or pneumothorax. BONE:Within normal limits for the patient's age. OTHER FINDINGS:Normal. IMPRESSION: No acute pulmonary findings. Lab Data Lab results reviewed: Yes I reviewed the patient's lab results. Lab results narrative: POC covid/flu, rapid strep, negative Labs: 03/20/24 17:00 Tonsil - Not Specified Group A Streptococcus Culture - Pending Quality:SDOH Health Related Social Needs: No Data to Display PFSH All Active Problems (Updated 03/20/24 @ 16:59 by YRIS Rinaldi) Oral aphthous ulcer (Acute) Viral upper respiratory tract infection with cough (Acute) Acute left otitis media (Acute) Marijuana use (Acute) Elevated LDL cholesterol level (Acute) Obesity (Chronic) Pre-hypertension (Acute) Mild persistent asthma (Chronic) Menorrhagia with irregular cycle (Acute) nexplanon since 2018; did not want OCPs (hard time remembering pills), in past has decline work-up for PCOS Sleep apnea (Acute 05/28/12) Environmental allergies (Acute 06/02/14) 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 BMI (body mass index), pediatric, greater than 99% for age (Acute 05/26/17) Acanthosis nigricans (Acute 02/16/16) Medical History (Updated 03/20/24 @ 16:59 by YRIS Rinaldi) Presence of subdermal contraceptive implant (02/27/24) 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) Tonsillar hypertrophy (06/02/14) Lyme disease (09/28/12) Obesity Constipation RSV (acute bronchiolitis due to respiratory syncytial virus) Epigastric pain admit [facility] 06/30 Environmental allergies Dyspepsia Depression Myopia Surgical History Tonsillectomy and adenoidectomy (02/26/15) with left nose cauterized Appendectomy at age 15 months for ruptured appendix Family History Mother Anxiety and depression Father Chronic paranoid schizophrenia Maternal Cousin Chronic paranoid schizophrenia Hyperlipidemia Mat started at age 14 yrs Sibling Pediatric hearing loss Mental disorder Grandparent Substance abuse Heart disease Hyperlipidemia Mental disorder Neoplasm Sister Menorrhagia with menorragia started on hormone treatment after 1 year of periods Grandmother Menorrhagia Social History Smoking/Tobacco Use Status: Never Smoking risk assessment performed?: Yes Alcohol Intake: current Alcohol Intake frequency: holidays/special occasions only Drug use: Daily Substance use type: marijuana Details: Pt states she smokes marijuana daily 03/18/24 Communication Needs: Corrective Lenses current occupation: works at [employer] Pets and animals: Yes (2 dogs and a cat) Pets and animals: cat(s) and dog(s) Do you feel safe at home: Yes Do you feel safe in your relationship?: Yes Female Reproductive History Menstrual Age of Menarche: 11 Duration of menses: 3-5 days control method: implanted History History 0 Para Hx # Term Pregnancies Multiple births Hx # Pregnancies Ectopic pregnancies AB induced Hx Number of Living Children AB spontaneous
--- NOTE | 2024-03-20 17:00 | DI.RAD_ITS ---
Exam(s) XR CHEST 2V PA LATERAL EXAM: XR CHEST 2V PA LATERAL CLINICAL HISTORY: cough TECHNIQUE: 2D digital imaging was performed of the chest. Two images were obtained. PA and lateral views were obtained. COMPARISON: CR ABD FLAT UPRIGHT PA CHEST from 02/21/2017 FINDINGS: MEDIASTINUM: Normal. HEART: Normal. PULMONARY VASCULATURE: Normal. LUNGS: Clear. PLEURAL SPACE: No pleural effusion or pneumothorax. BONE:Within normal limits for the patient's age. OTHER FINDINGS:Normal. IMPRESSION: No acute pulmonary findings. DATA REPOSITORY: RADIATION DOSE DELIVERED:
[2024-03-20 18:46] VITALS: BP 132/74; PULSE 82; RESP 16; TEMP 36.9; O2SAT 100
== END 2024-03-20 18:46 | disposition home or self-care (01) ==
PROVIDERS: Emergency Provider Physician Assistant; PCP Student in an Organized Health Care Education/Training Program
DX: R05.9 Cough, unspecified (principal); K12.0 Recurrent oral aphthae
CPT/HCPCS: 87880; 99284; 71046; 87081

== ENCOUNTER 2024-07-06 10:10 | Emergency (ER) | payer SELFPAY ==
[2024-07-06 10:14] VITALS: BP 128/90; PULSE 85; RESP 20; TEMP 37.2; O2SAT 96
--- NOTE | 2024-07-06 10:34 | ED.GENADUL_ITS ---
Discharge Plan Disposition Patient Disposition: Home Condition: Stable Discharge Details Clinical Impression: Strep pharyngitis Primary Care Provider: Alexander Velazquez ED Provider: Jose Sampson Home Meds and New Rx's Prescriptions: New cephalexin 500 mg capsule 500 mg PO BID 10 Days Qty: 20 0RF No Action Nexplanon 68 mg implant 1 implant SBD ONCE albuterol sulfate [ProAir HFA] 90 mcg/actuation HFA aerosol inhaler 2 puff Inhalation Q4H PRN Qty: 1 12RF Patient Comments: Pt unsure when she last used this albuterol sulfate 2.5 MG/3 ML solution for nebulization 2.5 mg Inhalation Q4H PRN Qty: 1 Patient Comments: Pt unsure when she last took this med Rx Instructions: USE PRN COUGH OR WHEEZE escitalopram oxalate 5 mg tablet 5 mg PO DAILY MDD 15mg Qty: 30 3RF Rx Instructions: Take with 10mg for 15mg total escitalopram oxalate 10 mg tablet 10 mg PO DAILY MDD 15mg Qty: 30 2RF cetirizine 10 mg tablet 10 mg PO DAILY PRNQty: 7 0RF naproxen 500 mg tablet 500 mg PO BID PRNQty: 7 0RF budesonide-formoterol 80-4.5 mcg/actuation HFA aerosol inhaler 2 puff inhalation Q12H Qty: 10.2 0RF Rx Instructions: 1-2 puffs once to twice daily for maintenance. Discharge Instructions Instructions: Strep Throat ED Additional Instructions: Start antibiotics as prescribed, continue Motrin and Tylenol as needed for pain or fever. Start Flonase and Mucinex, [id number], to help with your ear fullness. Return with voice changes, inability to swallow or any drooling, follow-up with PCP as needed. Stand Alone Forms: Work Release HPI General Date/Time Provider Initiated Documentation: 07/06/24 10:23 . Limitations to Documentation: no limitations . Information obtained by: patient . HPI Narrative: 18-year-old female with past medical history of hypertension, obesity presents for evaluation of sore throat. She reports symptoms for the last 2 days. Symptoms are associated with body aches and fever. She denies any runny nose, nasal drainage, cough. She reports that she does have some pain in her ears. She does have a history of a tonsillectomy. Her mom had strep throat 2 weeks ago. Pain is worse with swallowing, not associated with any voice changes. Related Data Home Medications ?Medication ?Instructions ?Recorded ?Confirmed albuterol sulfate 2.5 mg/3 mL 2.5 mg inhalation Q4H PRN ##1 05/12/16 07/06/24 (0.083 %) solution for nebulization etonogestrel 68 mg subdermal 1 implant subdermal ONCE 03/14/18 07/06/24 implant (Nexplanon) albuterol sulfate 90 mcg/actuation 2 puff inhalation Q4H PRN ##1 05/08/18 07/06/24 aerosol inhaler (ProAir HFA) escitalopram oxalate 10 mg tablet 10 mg PO DAILY #30 tabs 03/17/23 07/06/24 escitalopram oxalate 5 mg tablet 5 mg PO DAILY #30 tabs 03/17/23 07/06/24 budesonide-formoterol HFA 80 2 puff inhalation Q12H #10.2 grams 03/18/24 07/06/24 mcg-4.5 mcg/actuation aerosol inhaler cetirizine 10 mg tablet 10 mg PO DAILY PRN #7 tabs 03/18/24 07/06/24 naproxen 500 mg tablet 500 mg PO BID PRN #7 tabs 03/18/24 07/06/24 cephalexin 500 mg capsule 500 mg PO BID 10 days #20 caps 07/06/24 Previous Rx's ?Medication ?Instructions ?Recorded albuterol sulfate 90 mcg/actuation 2 puff inhalation Q4H PRN ##1 05/08/18 aerosol inhaler (ProAir HFA) escitalopram oxalate 10 mg tablet 10 mg PO DAILY #30 tabs 03/17/23 escitalopram oxalate 5 mg tablet 5 mg PO DAILY #30 tabs 03/17/23 budesonide-formoterol HFA 80 2 puff inhalation Q12H #10.2 grams 03/18/24 mcg-4.5 mcg/actuation aerosol inhaler cetirizine 10 mg tablet 10 mg PO DAILY PRN #7 tabs 03/18/24 naproxen 500 mg tablet 500 mg PO BID PRN #7 tabs 03/18/24 cephalexin 500 mg capsule 500 mg PO BID 10 days #20 caps 07/06/24 Allergies Allergy/AdvReac Type Severity Reaction Status Date / Time Penicillins Allergy Mild RASH Verified 07/06/24 10:16 ethinyl estradiol (From AdvReac Nausea, Verified 07/06/24 10:16 Xulane) Headache, abdominal pain norelgestromin (From Xulane) AdvReac Nausea, Verified 07/06/24 10:16 Headache, abdominal pain General Stated Complaint: RespSymp KAM: 4 Exam Narrative Exam Narrative: Review of Systems: All systems reviewed & are unremarkable except as noted in HPI and below Well-developed, no acute distress NCAT PERRL, normal conjunctiva Bilateral TMs with clear effusion, no erythema or bulging + Cervical adenopathy Posterior oropharynx with erythema and exudates noted on the soft palate and tonsillar beds RRR Unlabored respiratory effort Course Vital Signs Vital signs: Vital Signs Temperature 37.2 C 07/06/24 10:14 Pulse 85 07/06/24 10:14 Respiratory Rate 20 07/06/24 10:14 Blood Pressure 128/90 07/06/24 10:14 Pulse Oximetry 96 07/06/24 10:14 Temperature 37.2 C 07/06/24 10:14 Temperature Source Oral 07/06/24 10:14 Pulse 85 07/06/24 10:14 Respiratory Rate 20 07/06/24 10:14 Respiratory Effort Short of Breath 07/06/24 10:27 Respiratory Depth Normal 07/06/24 10:27 Blood Pressure 128/90 07/06/24 10:14 Pulse Oximetry 96 07/06/24 10:14 Pain Level 4 07/06/24 10:14 Medical Decision Making Emergent evaluation of fever and sore throat. Initial differential includes viral syndrome, pharyngitis, otitis media. The examination is most consistent with a strep pharyngitis given the erythema and exudates even though the patient has had a tonsillectomy. In addition her mother's recent positive diagnosis increases her risk for development. The patient's close clinical Cent[facility] criteria is enough to treat empirically. Given her penicillin allergy, will treat with cephalexin. Return precautions advised. Recommend follow-up with PCP as needed. 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 06/30 Environmental allergies Dyspepsia Depression Myopia Surgical History Tonsillectomy and adenoidectomy (02/26/15) with left nose cauterized Appendectomy at age 15 months for ruptured appendix Family History Mother Anxiety and depression Father Chronic paranoid schizophrenia Maternal Cousin Chronic paranoid schizophrenia Hyperlipidemia Mat started at age 14 yrs Sibling Pediatric hearing loss Mental disorder Grandparent Substance abuse Heart disease Hyperlipidemia Mental disorder Neoplasm Sister Menorrhagia with menorragia started on hormone treatment after 1 year of periods Grandmother Menorrhagia Social History Smoking/Tobacco Use Status: Never Smoking risk assessment performed?: Yes Alcohol Intake: current Alcohol Intake frequency: holidays/special occasions only Drug use: Daily Substance use type: marijuana Details: Pt states she smokes marijuana daily 03/18/24 Communication Needs: Corrective Lenses current occupation: works at [employer] Pets and animals: Yes (2 dogs and a cat) Pets and animals: cat(s) and dog(s) Do you feel safe at home: Yes Do you feel safe in your relationship?: Yes Female Reproductive History Menstrual Age of Menarche: 11 Duration of menses: 3-5 days control method: implanted History History 0 Para Hx # Term Pregnancies Multiple births Hx # Pregnancies Ectopic pregnancies AB induced Hx Number of Living Children AB spontaneous
== END 2024-07-06 10:40 | disposition home or self-care (01) ==
PROVIDERS: Emergency Provider Emergency Medicine; PCP Student in an Organized Health Care Education/Training Program
DX: J02.0 Streptococcal pharyngitis (principal)
CPT/HCPCS: 99283 ×2

== ENCOUNTER 2024-12-02 10:41 | Emergency (ER) | payer SELFPAY ==
[2024-12-02 10:47] VITALS: BP 149/105; PULSE 100; RESP 18; TEMP 37.1; O2SAT 95
[2024-12-02 11:36] LABS: COVID-19 PCR Negative (Negative); RSV PCR Negative (Negative)
== END 2024-12-02 13:03 | disposition left against medical advice (07) ==
LOC: ER 10:47
PROVIDERS: Nurse Practitioner Family; PCP Student in an Organized Health Care Education/Training Program
DX: Z53.21 Procedure and treatment not carried out due to patient leaving prior to being seen by health care provider (principal); R50.9 Fever, unspecified
CPT/HCPCS: 87637; 99282